=== PATIENT | male | born 1960 | race African-American/Black ===

== ENCOUNTER 2024-07-02 00:53 | Day surgery (SDC) | payer OTHER, SELFPAY ==
[2024-05-29 15:17] VITALS: BMI 40.8
--- NOTE | 2024-06-21 15:49 | PC.NURSE ---
Spoke with patient regarding medication Plavix & Eliquis. Patient verbalizes understanding that the last dose is to be taken on 06/24/24 for Plavix & 06/28/24 for Eliquis and the Endoscopist will instruct them when to restart after the procedure.
[2024-06-21 15:50] VITALS: BMI 40.8
--- OUTSIDE RECORDS SUMMARY | 2024-07-02 00:56 | XMS_ITS | Continuity of Care Document ---
Author Organization Formerly [facility] Address [address] [place] [address] [place] [address] Phone Care Team Providers Care Bag Turner Name Role Phone Hunter Vivar MD Unavailable Unavailable Procedures Procedure Date Eye Exam & Treatment Advance Directives Directive Yes / No Effective Date File Name No Information Encounters Encounter Description Practice Location Reason(s) For Visit Diagnoses Date Provider Providers Copied on Encounter [facility], [id number] [place] [address] [address], [place], [place], [id number], [place] tel:[phone] [facility] No Information [address]. [address] [facility] [address], [place], [place], [id number], [place]. tel:[phone] Family History Family Member Type Diagnosis Age At Onset No Information Payers Payer name Insurance type Covered libertarian ID Authoriza tion(s) No Information Social History Type Description Quantity Date Captured Comments Sex Male Smoking Status No Information Chief Complaint And Reason For Visit No Information Reason For Referral Reason For Referral No Information History Of Present Illness Encounter Date Complaint History Of Prese nt Illness No Information Functional Status Date Functional Assessmen t No Information Instructions Date Instruction Additional Infor mation No Information Assessments Type Assessment Date No Information Patient Care Teams Name Effective Dates (start - stop) Status Members No Information
--- OUTSIDE RECORDS SUMMARY | 2024-07-02 00:56 | XMS_ITS | Data Portability ---
Author Organization [facility] Yareli Betancur Address [address] [place] [address] Care Team Providers Care Drum Tester Name Role Phone SAIDA MCLAUGHLIN Primary Care Provider Unavailabl e Assessment Encounter Date Assessment Date Assessment LastModified by Organization Details LastModified Time 05/17/2023 05/17/2023 Old records continue current therapy blood work for biochemical management of disease processes and medications he will follow-up in 4-month [email or web address] Not available 05/17/2023 22:45:18 07/29/2023 07/29/2023 Diagnosis discussed in the management of those problems we are going to try to get him on a GLP-1 agent Ozempic hemoglobin A1c 8.3 LDL 95 significance of that discussed in I like to go up on medication but he wants to try diet I told him on he gets approved for Ozempic to call back for orders before starting because I will probably decrease his Toujeo dose when he starts the Ozempic Not available 08/10/2023 20:15:26 10/26/2023 10/26/2023 lifestyle instructions diabetic exam low-dose CT chest follow up in 4 months continue current therapy blood work ordered [email or web address] Not available 10/26/2023 23:19:20 03/06/2024 03/06/2024 healthy lifestyle care instructions blood work continue current therapy Prevnar 20 today diabetic foot exam diabetic eye exam six-month follow up [email or web address] Not available 03/06/2024 22:21:02 Plan of Treatment Reminders Order Date Submit Date Provider Last Modified By Organization Details Last Modified Time Details Appointments ANY 15 2024 10:00A M Saida Mclaughlin MD Not available Not available Not available Lab HbA1c (hemoglob in A1c), blood 2024 025 REINAHOOD Pozo, [address], [place], [address], 03/08/2024 13:15:03 albumin/c reatinine , mass ratio, urine 2024 025 REINA Pozo, [address], [address], [place], [address], 03/08/2024 13:14:58 CBC w/ auto diff 2024 025 REINA [facility], [address], [place], [address], 03/08/2024 13:15:04 lipid panel, serum 2024 025 REINA Pozo, [address], [address], [place], [address], 03/08/2024 13:15:00 CMP, serum or plasma 2024 025 REINA Pozo, [address], [place], [address], 03/08/2024 13:15:01 HbA1c (hemoglob in A1c), blood 2023 024 REINA Pozo, [address], [address], [place], [address], 10/27/2023 08:32:09 CBC w/ auto diff 2023 024 REINA Pozo, [address], [place], [address], 10/27/2023 08:32:10 CMP, serum or plasma 2023 024 REINA Pozo, [address], [place], [address], 10/27/2023 08:32:08 lipid panel, serum 2023 024 [place], [address], [place], [address], 10/27/2023 08:32:08 albumin/c reatinine , mass ratio, urine 2023 024 REINA [facility], [address], [place], [address], 05/18/2023 08:24:11 CMP, serum or plasma 2023 024 REINA [facility], [address], [place], [address], 05/18/2023 08:24:13 lipid panel, serum 2023 024 [place] [facility], [address], [place], [address], 05/18/2023 08:24:12 CBC w/ auto diff 2023 024 [facility], [address], [place], [address], 05/18/2023 08:24:15 T3, free, serum or plasma 2023 024 [place] Luis E, [address], [address], [place], [address], 05/18/2023 08:24:16 TSH, ultra-sen sitive, serum 2023 024 REINA [facility], [address], [place], [address], 05/18/2023 08:24:14 unlisted lab - T4, free 2023 024 REINA [facility], [address], [place], [address], 05/18/2023 08:24:13 Referral podiatris t referral 2024 025 [facility], [address], [place], [address], 06/14/2024 12:34:42 Procedures colonosco py screening (PROC) [address] [facility], [address], [id number], [place], [address], 04/11/2024 12:25:22 Surgeries None recorded. Imaging LDCT, chest, for lung cancer screening 2023 024 [facility] ([facility]), [address], [place], [address], 11/09/2023 17:07:25 Medication Orders Ozempic 0.25 mg or 0.5 mg (2 mg/3 mL) subcutane ous pen injector 2023 024 REINA [id number], [address], [place], [address], 09/26/2023 10:34:28 Ozempic 1 mg/dose (4 mg/3 mL) subcutane ous pen injector 2023 024 [email or web address] [id number], [address], [place], [address], 07/29/2023 14:01:42 Patient TargetsNo targets recorded. Patient Instructions Encounter Date Encounter Id Patient Instructions Last Modified By Organization Details Last Modified Time 10/26/2023 [id number] A healthy lifestyle: care instructions [email or web address] Not available 10/26/2023 23:19:36 diabetic eye exam* [email or web address] Not available 10/26/2023 17:03:53 labs today, we will call you when ldct approved thru insurance [email or web address] Not available 10/26/2023 15:48:22 03/06/2024 [id number] A healthy lifestyle: care instructions [email or web address] Not available 03/06/2024 17:25:07 diabetic eye exam* [email or web address] Not available 06/13/2024 12:23:49 high blood pressure: care instructions [email or web address] Not available 03/06/2024 22:21:27 Reason for Referral County Program Technician Referral for Type 2 diabetes mellitus Referring Physician: Saida Mclaughlin, Internal Medicine, Encounter Date: 03/06/2024 Results Created Date Observation Date Name Description Value Unit Range Abnormal Flag Note LastModifiedBy Organization Detail LastModifiedTime 05/17/19 24 05/18/2023 ALBUM IN/CR EATIN INE RATIO ,URIN E creatinine, urine 265.8 mg/dL notest ab. Not Available [facility] ([facility]) [address] [facility], [place], [address], 05/18/2023 08:24:11 05/17/19 24 05/18/2023 ALBUM IN/CR EATIN INE RATIO ,URIN E albumin, urine 11.5 ug/mL notest ab. Not Available [facility] ([facility]) [address] [place], [address], 05/18/2023 08:24:11 05/17/19 24 05/18/2023 ALBUM IN/CR EATIN INE RATIO ,URIN E alb/creat ratio 4 mg/g_ creat 0-29 Nicci l: 0 - 29 Moder ately incre ased: 30 - 300 Sever yasmin incre ased: >300 Not Available [facility] ([facility]) [address] [facility], [place], [address], 05/18/2023 08:24:11 05/17/19 24 05/18/2023 LIPID PANEL cholesterol, total 158 mg/dL 100-19 9 Not Available [facility] ([facility]) [address] [place], [address], 05/18/2023 08:24:12 05/17/19 24 05/18/2023 LIPID PANEL triglyceride s 77 mg/dL 0-149 Not Available [facility]) [address] [place], [address], 05/18/2023 08:24:12 05/17/19 24 05/18/2023 LIPID PANEL HDL cholesterol 48 mg/dL >39 Not Available [facility] [address] [place], [address], 05/18/2023 08:24:12 05/17/19 24 05/18/2023 LIPID PANEL VLDL cholesterol becka 15 mg/dL 5-40 Not Available [facility]) [address] [place], [address], 05/18/2023 08:24:12 05/17/19 24 05/18/2023 LIPID PANEL LDL chol calc ([facility]) 95 mg/dL 0-99 Not Available [facility] ([facility]) [address] [place], [address], 05/18/2023 08:24:12 05/17/19 24 05/18/2023 T4, FREE T4,free(dire ct) 1.23 NG/dL 0.82-1 .77 Not Available [facility] ([facility]) [address] [place], [address], 05/18/2023 08:24:13 05/17/19 24 05/18/2023 COMP. METAB OLIC PANEL (14) glucose 119 mg/dL 70-99 above high normal Not Available [facility] ([facility]) [address] [place], [address], 05/18/2023 08:24:13 05/17/19 24 05/18/2023 COMP. METAB OLIC PANEL (14) BUN 19 mg/dL 8-27 Not Available [facility] ([facility]) [address] [place], [address], 05/18/2023 08:24:13 05/17/19 24 05/18/2023 COMP. METAB OLIC PANEL (14) creatinine 0.93 mg/dL 0.76-1 .27 Not Available [facility] ([facility]) [address] [facility], [place], [address], 05/18/2023 08:24:13 05/17/19 24 05/18/2023 COMP. METAB OLIC PANEL (14) eGFR 94 mL/mi n/1.7 3 >59 Not Available [facility] ([facility]) [address] [facility], [place], [address], 05/18/2023 08:24:13 05/17/19 24 05/18/2023 COMP. METAB OLIC PANEL (14) BUN/creatini ne ratio 20 10-24 Not Available [facility] ([facility]) [address] [facility], [place], [address], 05/18/2023 08:24:13 05/17/19 24 05/18/2023 COMP. METAB OLIC PANEL (14) sodium 140 mmol/ L 134-14 4 Not Available [facility] ([facility]) [address] [place], [address], 05/18/2023 08:24:13 05/17/19 24 05/18/2023 COMP. METAB OLIC PANEL (14) potassium 4.7 mmol/ L 3.5-5. 2 Not Available [facility] ([facility]) [address] [place], [address], 05/18/2023 08:24:13 05/17/19 24 05/18/2023 COMP. METAB OLIC PANEL (14) chloride 103 mmol/ L 96-106 Not Available [facility] ([facility]) [address] [place], [address], 05/18/2023 08:24:13 05/17/19 24 05/18/2023 COMP. METAB OLIC PANEL (14) carbon dioxide, total 23 mmol/ L 20-29 Not Available [facility] ([facility]) [address], [place], [address], 05/18/2023 08:24:13 05/17/19 24 05/18/2023 COMP. METAB OLIC PANEL (14) calcium 9.2 mg/dL 8.6-10 .2 Not Available [facility] ([facility]) [address] [place], [address], 05/18/2023 08:24:13 05/17/19 24 05/18/2023 COMP. METAB OLIC PANEL (14) protein, total 7.3 g/dL 6.0-8. 5 Not Available [facility] ([facility]) [address] [place] [place], [address], 05/18/2023 08:24:13 05/17/19 24 05/18/2023 COMP. METAB OLIC PANEL (14) albumin 3.9 g/dL 3.8-4. 9 Not Available [facility] ([facility]) [address] [place], [address], 05/18/2023 08:24:13 05/17/19 24 05/18/2023 COMP. METAB OLIC PANEL (14) globulin, total 3.4 g/dL 1.5-4. 5 Not Available [facility] ([facility]) [address] [facility] [place], [address], 05/18/2023 08:24:13 05/17/19 24 05/18/2023 COMP. METAB OLIC PANEL (14) A/G ratio 1.1 1.2-2. 2 below low normal Not Available [facility] ([facility]) [address] [place], [address], 05/18/2023 08:24:13 05/17/19 24 05/18/2023 COMP. METAB OLIC PANEL (14) bilirubin, total 0.3 mg/dL 0.0-1. 2 Not Available [facility] ([facility]) [address] [facility], [place], [address], 05/18/2023 08:24:13 05/17/19 24 05/18/2023 COMP. METAB OLIC PANEL (14) alkaline phosphatase 74 IU/L 44-121 Not Available [facility]) [address] [facility], [place], [address], 05/18/2023 08:24:13 05/17/19 24 05/18/2023 COMP. METAB OLIC PANEL (14) AST (SGOT) 14 IU/L 0-40 Not Available [facility] ([facility]) [address] [facility], [place], [address], 05/18/2023 08:24:13 05/17/19 24 05/18/2023 COMP. METAB OLIC PANEL (14) ALT (SGPT) 18 IU/L 0-44 Not Available [facility] ([facility]) [address] [facility], [place], [address], 05/18/2023 08:24:13 05/17/19 24 05/18/2023 TSH TSH 1.220 uIU/m L 0.450- 4.500 Not Available [facility] ([facility]) [address] [facility], [place], [address], 05/18/2023 08:24:14 05/17/19 24 05/18/2023 CBC WITH DIFFE RENTI AL/PL ATELE T WBC 8.6 x10e3 /uL 3.4-10 .8 Not Available [facility] ([facility]) [address] [facility], [place], [address], 05/18/2023 08:24:15 05/17/19 24 05/18/2023 CBC WITH DIFFE RENTI AL/PL ATELE T RBC 4.24 x10e6 /uL 4.14-5 .80 Not Available [facility] ([facility]) [address] [facility], [place], [address], 05/18/2023 08:24:15 05/17/19 24 05/18/2023 CBC WITH DIFFE RENTI AL/PL ATELE T hemoglobin 11.8 g/dL 13.0-1 7.7 below low normal Not Available [facility] ([facility]) [address] [place], [address], 05/18/2023 08:24:15 05/17/19 24 05/18/2023 CBC WITH DIFFE RENTI AL/PL ATELE T hematocrit 36.3 % 37.5-5 1.0 below low normal Not Available [facility] ([facility]) [address] [place], [address], 05/18/2023 08:24:15 05/17/19 24 05/18/2023 CBC WITH DIFFE RENTI AL/PL ATELE T MCV 86 fL 79-97 Not Available [facility] ([facility]) [address] [place], [address], 05/18/2023 08:24:15 05/17/19 24 05/18/2023 CBC WITH DIFFE RENTI AL/PL ATELE T MCH 27.8 pg 26.6-3 3.0 Not Available [facility] ([facility]) [address] [place], [address], 05/18/2023 08:24:15 05/17/19 24 05/18/2023 CBC WITH DIFFE RENTI AL/PL ATELE T MCHC 32.5 g/dL 31.5-3 5.7 Not Available [facility] ([facility]) [address] [place], [address], 05/18/2023 08:24:15 05/17/19 24 05/18/2023 CBC WITH DIFFE RENTI AL/PL ATELE T RDW 14.0 % 11.6-1 5.4 Not Available [facility] ([facility]) [address] [place], [address], 05/18/2023 08:24:15 05/17/19 24 05/18/2023 CBC WITH DIFFE RENTI AL/PL ATELE T platelets 314 x10e3 /uL 150-45 0 Not Available [facility] ([facility]) [address] [facility], [place], [address], 05/18/2023 08:24:15 05/17/19 24 05/18/2023 CBC WITH DIFFE RENTI AL/PL ATELE T neutrophils 57 % notest ab. Not Available [facility] ([facility]) [address] [facility], [place], [address], 05/18/2023 08:24:15 05/17/19 24 05/18/2023 CBC WITH DIFFE RENTI AL/PL ATELE T lymphs 26 % notest ab. Not Available [facility] ([facility]) [address] [facility], [place], [address], 05/18/2023 08:24:15 05/17/19 24 05/18/2023 CBC WITH DIFFE RENTI AL/PL ATELE T monocytes 10 % notest ab. Not Available [facility] ([facility]) [address] [facility], [place], [address], 05/18/2023 08:24:15 05/17/19 24 05/18/2023 CBC WITH DIFFE RENTI AL/PL ATELE T eos 6 % notest ab. Not Available [facility] ([facility]) [address] [facility], [place], [address], 05/18/2023 08:24:15 05/17/19 24 05/18/2023 CBC WITH DIFFE RENTI AL/PL ATELE T basos 1 % notest ab. Not Available [facility] ([facility]) [address] [facility], [place], [address], 05/18/2023 08:24:15 05/17/19 24 05/18/2023 CBC WITH DIFFE RENTI AL/PL ATELE T neutrophils (absolute) 4.9 x10e3 /uL 1.4-7. 0 Not Available [facility] ([facility]) [address] [facility], [place], [address], 05/18/2023 08:24:15 05/17/19 24 05/18/2023 CBC WITH DIFFE RENTI AL/PL ATELE T lymphs (absolute) 2.3 x10e3 /uL 0.7-3. 1 Not Available [facility] ([facility]) [address] [place], [address], 05/18/2023 08:24:15 05/17/19 24 05/18/2023 CBC WITH DIFFE RENTI AL/PL ATELE T monocytes(ab solute) 0.9 x10e3 /uL 0.1-0. 9 Not Available [facility] ([facility]) [address] [facility], [place], [address], 05/18/2023 08:24:15 05/17/19 24 05/18/2023 CBC WITH DIFFE RENTI AL/PL ATELE T eos (absolute) 0.5 x10e3 /uL 0.0-0. 4 above high normal Not Available [facility] ([facility]) [address] [place], [address], 05/18/2023 08:24:15 05/17/19 24 05/18/2023 CBC WITH DIFFE RENTI AL/PL ATELE T baso (absolute) 0.1 x10e3 /uL 0.0-0. 2 Not Available [facility] ([facility]) [address] [place], [address], 05/18/2023 08:24:15 05/17/19 24 05/18/2023 CBC WITH DIFFE RENTI AL/PL ATELE T immature granulocytes 0 % notest ab. Not Available [facility] ([facility]) [address] [place], [address], 05/18/2023 08:24:15 05/17/19 24 05/18/2023 CBC WITH DIFFE NNAMDI AL/PL ATELE T immature grans (abs) 0.0 x10e3 /uL 0.0-0. 1 Not Available [facility] ([facility]) [address] [facility], [place], [address], 05/18/2023 08:24:15 05/17/19 24 05/18/2023 TRIIO DOTHY CAPRICE E (T3), FREE triiodothyro nine (T3), free 2.9 pg/mL 2.0-4. 4 Not Available [facility] ([facility]) [address] [facility], [place], [address], 05/18/2023 08:24:15 05/17/19 24 05/18/2023 VERBA L ORDER see below: Commen t: Hany alarconi de reque sted infor fer n and fax to [phone]. [place] s requi res a writt en and keyon d reque st be forwa rded to a labor atory follo wing a verba l order of a labor atory test. Hany blanco gumaro t us to meet this requi remen t and to compl ete our recor ds. Date: Diagn osis code( s) provi ded for this order : I10 E11.9 Addit ional Diagn osis Code( s):__ _ Hany blanco Print ICD-9 /10 Diagn osis Code( s):__ _ Physi renetta or Autho rized Desig nee:_ _ Pleas e Print Physi renetta or Autho rized Desig nee Signa ture: Your Signa ture Confi cecile Your Order Of The Test( s) Liste d Not Available [facility] ([facility]) [address] [place], [address], 05/18/2023 17:09:42 05/17/19 24 05/18/2023 VERBA L ORDER additional test(s) requested Commen t: Test( s) added per Mino Barrera at [facility] nt 05-17 Logge d by Stefanie Hong t Test# [id number] 3 Hemog lobin A1c Not Available [facility] ([facility]) [address] [facility], [place], [address], 05/18/2023 17:09:42 05/17/19 24 05/20/2023 JULIO EN AUTHO RIZAT ION written authorizatio n Veronique Friedman en Autho rizat ion Recei sasha. Autho rizat ion recei sasha from MINO BARRERA 05-19 Logge d by Gia seymour Not Available [facility] ([facility]) [address] [place], [address], 05/20/2023 06:17:36 05/17/19 24 05/19/2023 HEMOG LOBIN A1C hemoglobin A1C 8.3 % 4.8-5. 6 above high normal Predi abete s: 5.7 - 6.4 Diabe kayley: >6.4 Glyce tameka contr ol for adult s with diabe kayley: <7.0 Not Available [facility] ([facility]) [address] [facility] [place], [address], 05/20/2023 06:17:36 10/26/19 24 10/27/2023 LIPID PANEL cholesterol, total 121 mg/dL 100-19 9 Not Available [facility] ([facility]) [address] [facility] [place], [address], 10/27/2023 08:32:08 10/26/19 24 10/27/2023 LIPID PANEL triglyceride s 89 mg/dL 0-149 Not Available [facility] ([facility]) [address] [facility] [place], [address], 10/27/2023 08:32:08 10/26/19 24 10/27/2023 LIPID PANEL HDL cholesterol 37 mg/dL >39 below low normal Not Available [facility] ([facility]) [address] [place], [address], 10/27/2023 08:32:08 10/26/19 24 10/27/2023 LIPID PANEL VLDL cholesterol becka 17 mg/dL 5-40 Not Available [facility] ([facility]) [address] [place], [address], 10/27/2023 08:32:08 10/26/19 24 10/27/2023 LIPID PANEL LDL chol calc ([facility]) 67 mg/dL 0-99 Not Available [facility]) [address] [place], [address], 10/27/2023 08:32:08 10/26/19 24 10/27/2023 COMP. METAB OLIC PANEL (14) glucose 139 mg/dL 70-99 above high normal Not Available [facility] ([facility]) [address] [place], [address], 10/27/2023 08:32:08 10/26/19 24 10/27/2023 COMP. METAB OLIC PANEL (14) BUN 36 mg/dL 8-27 above high normal Not Available [facility] ([facility]) [address] [place], [address], 10/27/2023 08:32:08 10/26/19 24 10/27/2023 COMP. METAB OLIC PANEL (14) creatinine 1.70 mg/dL 0.76-1 .27 above high normal Not Available [facility] ([facility]) [address] [place], [address], 10/27/2023 08:32:08 10/26/19 24 10/27/2023 COMP. METAB OLIC PANEL (14) eGFR 46 mL/mi n/1.7 3 >59 below low normal Not Available [facility] ([facility]) [address], [place], [address], 10/27/2023 08:32:08 10/26/19 24 10/27/2023 COMP. METAB OLIC PANEL (14) BUN/creatini ne ratio 21 10-24 Not Available [facility] ([facility]) [address] [facility] [place], [address], 10/27/2023 08:32:08 10/26/19 24 10/27/2023 COMP. METAB OLIC PANEL (14) sodium 141 mmol/ L 134-14 4 Not Available [facility] ([facility]) [address] [place], [address], 10/27/2023 08:32:08 10/26/19 24 10/27/2023 COMP. METAB OLIC PANEL (14) potassium 4.7 mmol/ L 3.5-5. 2 Not Available [facility] ([facility]) [address] [facility] [place], [address], 10/27/2023 08:32:08 10/26/19 24 10/27/2023 COMP. METAB OLIC PANEL (14) chloride 103 mmol/ L 96-106 Not Available [facility] ([facility]) [address], [place], [address], 10/27/2023 08:32:08 10/26/19 24 10/27/2023 COMP. METAB OLIC PANEL (14) carbon dioxide, total 21 mmol/ L 20-29 Not Available [facility] ([facility]) [address], [place], [address], 10/27/2023 08:32:08 10/26/19 24 10/27/2023 COMP. METAB OLIC PANEL (14) calcium 9.2 mg/dL 8.6-10 .2 Not Available [facility] ([facility]) [address] [place], [address], 10/27/2023 08:32:08 10/26/19 24 10/27/2023 COMP. METAB OLIC PANEL (14) protein, total 7.2 g/dL 6.0-8. 5 Not Available [facility] ([facility]) [address], [place], [address], 10/27/2023 08:32:08 10/26/19 24 10/27/2023 COMP. METAB OLIC PANEL (14) albumin 4.1 g/dL 3.8-4. 9 Not Available [facility] ([facility]) [address], [place], [address], 10/27/2023 08:32:08 10/26/19 24 10/27/2023 COMP. METAB OLIC PANEL (14) globulin, total 3.1 g/dL 1.5-4. 5 Not Available [facility] ([facility]) [address] [place], [address], 10/27/2023 08:32:08 10/26/19 24 10/27/2023 COMP. METAB OLIC PANEL (14) bilirubin, total 0.3 mg/dL 0.0-1. 2 Not Available [facility] ([facility]) [address] [place], [address], 10/27/2023 08:32:08 10/26/19 24 10/27/2023 COMP. METAB OLIC PANEL (14) alkaline phosphatase 65 IU/L 44-121 Not Available [facility]) [address], [place], [address], 10/27/2023 08:32:08 10/26/19 24 10/27/2023 COMP. METAB OLIC PANEL (14) AST (SGOT) 16 IU/L 0-40 Not Available [facility] ([facility]) [address] [place], [address], 10/27/2023 08:32:08 10/26/19 24 10/27/2023 COMP. METAB OLIC PANEL (14) ALT (SGPT) 19 IU/L 0-44 Not Available [facility] ([facility]) [address] [facility], [place], [address], 10/27/2023 08:32:08 10/26/19 24 10/27/2023 HEMOG LOBIN A1C hemoglobin A1C 8.2 % 4.8-5. 6 above high normal Predi abete s: 5.7 - 6.4 Diabe kayley: >6.4 Glyce tameka contr ol for adult s with diabe kayley: <7.0 Not Available [facility] ([facility]) [address] [facility], [place], [address], 10/27/2023 08:32:09 10/26/19 24 10/27/2023 CBC WITH DIFFE RENTI AL/PL ATELE T WBC 8.5 x10e3 /uL 3.4-10 .8 Not Available [facility] ([facility]) [address] [facility], [place], [address], 10/27/2023 08:32:10 10/26/19 24 10/27/2023 CBC WITH DIFFE RENTI AL/PL ATELE T RBC 3.78 x10e6 /uL 4.14-5 .80 below low normal Not Available [facility] ([facility]) [address] [facility], [place], [address], 10/27/2023 08:32:10 10/26/19 24 10/27/2023 CBC WITH DIFFE RENTI AL/PL ATELE T hemoglobin 11.0 g/dL 13.0-1 7.7 below low normal Not Available [facility] ([facility]) [address] [facility], [place], [address], 10/27/2023 08:32:10 10/26/19 24 10/27/2023 CBC WITH DIFFE RENTI AL/PL ATELE T hematocrit 34.3 % 37.5-5 1.0 below low normal Not Available [facility] ([facility]) [address] [facility], [place], [address], 10/27/2023 08:32:10 10/26/19 24 10/27/2023 CBC WITH DIFFE RENTI AL/PL ATELE T MCV 91 fL 79-97 Not Available [facility] ([facility]) [address] [place], [address], 10/27/2023 08:32:10 10/26/19 24 10/27/2023 CBC WITH DIFFE RENTI AL/PL ATELE T MCH 29.1 pg 26.6-3 3.0 Not Available [facility] ([facility]) [address] [place], [address], 10/27/2023 08:32:10 10/26/19 24 10/27/2023 CBC WITH DIFFE RENTI AL/PL ATELE T MCHC 32.1 g/dL 31.5-3 5.7 Not Available [facility] ([facility]) [address] [facility], [place], [address], 10/27/2023 08:32:10 10/26/19 24 10/27/2023 CBC WITH DIFFE RENTI AL/PL ATELE T RDW 14.2 % 11.6-1 5.4 Not Available [facility] ([facility]) [address] [facility], [place], [address], 10/27/2023 08:32:10 10/26/19 24 10/27/2023 CBC WITH DIFFE RENTI AL/PL ATELE T platelets 316 x10e3 /uL 150-45 0 Not Available [facility] ([facility]) [address] [facility], [place], [address], 10/27/2023 08:32:10 10/26/19 24 10/27/2023 CBC WITH DIFFE RENTI AL/PL ATELE T neutrophils 51 % notest ab. Not Available [facility] ([facility]) [address] [facility] [facility], [place], [address], 10/27/2023 08:32:10 10/26/19 24 10/27/2023 CBC WITH DIFFE RENTI AL/PL ATELE T lymphs 32 % notest ab. Not Available [facility] ([facility]) [address] [facility], [place], [address], 10/27/2023 08:32:10 10/26/19 24 10/27/2023 CBC WITH DIFFE RENTI AL/PL ATELE T monocytes 12 % notest ab. Not Available [facility] ([facility]) [address] [facility], [place], [address], 10/27/2023 08:32:10 10/26/19 24 10/27/2023 CBC WITH DIFFE RENTI AL/PL ATELE T eos 4 % notest ab. Not Available [facility] ([facility]) [address] [facility], [place], [address], 10/27/2023 08:32:10 10/26/19 24 10/27/2023 CBC WITH DIFFE RENTI AL/PL ATELE T basos 1 % notest ab. Not Available [facility] ([facility]) [address] [facility] [facility], [place], [address], 10/27/2023 08:32:10 10/26/19 24 10/27/2023 CBC WITH DIFFE RENTI AL/PL ATELE T neutrophils (absolute) 4.4 x10e3 /uL 1.4-7. 0 Not Available [facility] ([facility]) [address] [facility], [place], [address], 10/27/2023 08:32:10 10/26/19 24 10/27/2023 CBC WITH DIFFE RENTI AL/PL ATELE T lymphs (absolute) 2.7 x10e3 /uL 0.7-3. 1 Not Available [facility] ([facility]) [address] [facility], [place], [address], 10/27/2023 08:32:10 10/26/19 24 10/27/2023 CBC WITH DIFFE RENTI AL/PL ATELE T monocytes(ab solute) 1.0 x10e3 /uL 0.1-0. 9 above high normal Not Available [facility] ([facility]) [address] [facility], [place], [address], 10/27/2023 08:32:10 10/26/19 24 10/27/2023 CBC WITH DIFFE RENTI AL/PL ATELE T eos (absolute) 0.3 x10e3 /uL 0.0-0. 4 Not Available [facility] ([facility]) [address] [facility], [place], [address], 10/27/2023 08:32:10 10/26/19 24 10/27/2023 CBC WITH DIFFE RENTI AL/PL ATELE T baso (absolute) 0.0 x10e3 /uL 0.0-0. 2 Not Available [facility] ([facility]) [address] [facility], [place], [address], 10/27/2023 08:32:10 10/26/19 24 10/27/2023 CBC WITH DIFFE RENTI AL/PL ATELE T immature granulocytes 0 % notest ab. Not Available [facility] ([facility]) [address] [facility] [facility], [place], [address], 10/27/2023 08:32:10 10/26/19 24 10/27/2023 CBC WITH DIFFE RENTI AL/PL ATELE T immature grans (abs) 0.0 x10e3 /uL 0.0-0. 1 Not Available [facility] ([facility]) [address] [facility] [facility], [place], [address], 10/27/2023 08:32:10 03/07/19 25 03/08/2024 ALBUM IN/CR EATIN INE RATIO ,URIN E creatinine, urine 290.2 mg/dL notest ab. Not Available [facility] ([facility]) [address] [facility] [facility], [place], [address], 03/08/2024 13:14:58 03/07/19 25 03/08/2024 ALBUM IN/CR EATIN INE RATIO ,URIN E albumin, urine 15.7 ug/mL notest ab. Not Available [facility] ([facility]) [address] [facility] [facility], [place], [address], 03/08/2024 13:14:58 03/07/19 25 03/08/2024 ALBUM IN/CR EATIN INE RATIO ,URIN E alb/creat ratio 5 mg/g_ creat 0-29 Nicci l: 0 - 29 Moder ately incre ased: 30 - 300 Sever yasmin incre ased: >300 Not Available [facility] ([facility]) [address] [facility] [facility], [place], [address], 03/08/2024 13:14:58 03/07/19 25 03/08/2024 LIPID PANEL cholesterol, total 131 mg/dL 100-19 9 Not Available [facility] ([facility]) [address] [facility], [place], [address], 03/08/2024 13:15:00 03/07/19 25 03/08/2024 LIPID PANEL triglyceride s 95 mg/dL 0-149 Not Available [facility] ([facility]) [address] [facility] [place], [address], 03/08/2024 13:15:00 03/07/19 25 03/08/2024 LIPID PANEL HDL cholesterol 40 mg/dL >39 Not Available [facility] ([facility]) [address] [facility] [place], [address], 03/08/2024 13:15:00 03/07/19 25 03/08/2024 LIPID PANEL VLDL cholesterol becka 18 mg/dL 5-40 Not Available [facility] ([facility]) [address] [facility] [place], [address], 03/08/2024 13:15:00 03/07/19 25 03/08/2024 LIPID PANEL LDL chol calc ([facility]) 73 mg/dL 0-99 Not Available [facility] ([facility]) [address] [place], [address], 03/08/2024 13:15:00 03/07/19 25 03/08/2024 COMP. METAB OLIC PANEL (14) glucose 119 mg/dL 70-99 above high normal Not Available [facility] ([facility]) [address] [place], [address], 03/08/2024 13:15:01 03/07/19 25 03/08/2024 COMP. METAB OLIC PANEL (14) BUN 30 mg/dL 8-27 above high normal Not Available [facility] ([facility]) [address] [facility] [place], [address], 03/08/2024 13:15:01 03/07/19 25 03/08/2024 COMP. METAB OLIC PANEL (14) creatinine 1.12 mg/dL 0.76-1 .27 Not Available [facility] ([facility]) [address] [place], [address], 03/08/2024 13:15:01 03/07/19 25 03/08/2024 COMP. METAB OLIC PANEL (14) eGFR 75 mL/mi n/1.7 3 >59 Not Available [facility] ([facility]) [address] [facility] [facility], [place], [address], 03/08/2024 13:15:01 03/07/19 25 03/08/2024 COMP. METAB OLIC PANEL (14) BUN/creatini ne ratio 27 10-24 above high normal Not Available [facility] ([facility]) [address] [facility], [place], [address], 03/08/2024 13:15:01 03/07/19 25 03/08/2024 COMP. METAB OLIC PANEL (14) sodium 140 mmol/ L 134-14 4 Not Available [facility] ([facility]) [address] [facility] [facility], [place], [address], 03/08/2024 13:15:01 03/07/19 25 03/08/2024 COMP. METAB OLIC PANEL (14) potassium 4.8 mmol/ L 3.5-5. 2 Not Available [facility] ([facility]) [address] [facility] [facility], [place], [address], 03/08/2024 13:15:01 03/07/19 25 03/08/2024 COMP. METAB OLIC PANEL (14) chloride 104 mmol/ L 96-106 Not Available [facility] ([facility]) [address] [place], [address], 03/08/2024 13:15:01 03/07/19 25 03/08/2024 COMP. METAB OLIC PANEL (14) carbon dioxide, total 23 mmol/ L 20-29 Not Available [facility] ([facility]) [address] [facility], [place], [address], 03/08/2024 13:15:01 03/07/19 25 03/08/2024 COMP. METAB OLIC PANEL (14) calcium 8.8 mg/dL 8.6-10 .2 Not Available [facility] ([facility]) [address] [place], [address], 03/08/2024 13:15:01 03/07/19 25 03/08/2024 COMP. METAB OLIC PANEL (14) protein, total 7.3 g/dL 6.0-8. 5 Not Available [facility] ([facility]) [address] [place], [address], 03/08/2024 13:15:01 03/07/19 25 03/08/2024 COMP. METAB OLIC PANEL (14) albumin 4.1 g/dL 3.9-4. 9 Not Available [facility] ([facility]) [address] [facility] [place], [address], 03/08/2024 13:15:01 03/07/19 25 03/08/2024 COMP. METAB OLIC PANEL (14) globulin, total 3.2 g/dL 1.5-4. 5 Not Available [facility] ([facility]) [address] [place], [address], 03/08/2024 13:15:01 03/07/19 25 03/08/2024 COMP. METAB OLIC PANEL (14) bilirubin, total 0.2 mg/dL 0.0-1. 2 Not Available [facility] ([facility]) [address] [place], [address], 03/08/2024 13:15:01 03/07/19 25 03/08/2024 COMP. METAB OLIC PANEL (14) alkaline phosphatase 70 IU/L 44-121 Not Available [facility] ([facility]) [address] [place], [address], 03/08/2024 13:15:01 03/07/19 25 03/08/2024 COMP. METAB OLIC PANEL (14) AST (SGOT) 15 IU/L 0-40 Not Available [facility] ([facility]) [address] [place], [address], 03/08/2024 13:15:01 03/07/1903/08/2024 COMP. METAB OLIC PANEL (14) ALT (SGPT) 20 IU/L 0-44 Not Available [facility] ([facility]) [address] [facility] [facility], [place], [address], 03/08/2024 13:15:01 03/07/19 25 03/08/2024 HEMOG LOBIN A1C hemoglobin A1C 6.9 % 4.8-5. 6 above high normal Predi abete s: 5.7 - 6.4 Diabe kayley: >6.4 Glyce tameka contr ol for adult s with diabe kayley: <7.0 Not Available [facility] ([facility]) [address] [place], [address], 03/08/2024 13:15:03 03/07/19 25 03/08/2024 CBC WITH DIFFE RENTI AL/PL ATELE T WBC 7.7 x10e3 /uL 3.4-10 .8 Not Available [facility] ([facility]) [address] [place], [address], 03/08/2024 13:15:04 03/07/19 25 03/08/2024 CBC WITH DIFFE RENTI AL/PL ATELE T RBC 3.81 x10e6 /uL 4.14-5 .80 below low normal Not Available [facility] ([facility]) [address] [place], [address], 03/08/2024 13:15:04 03/07/19 25 03/08/2024 CBC WITH DIFFE RENTI AL/PL ATELE T hemoglobin 11.0 g/dL 13.0-1 7.7 below low normal Not Available [facility] ([facility]) [address] [place], [address], 03/08/2024 13:15:04 03/07/19 25 03/08/2024 CBC WITH DIFFE RENTI AL/PL ATELE T hematocrit 33.9 % 37.5-5 1.0 below low normal Not Available [facility] ([facility]) [address] [facility], [place], [address], 03/08/2024 13:15:04 03/07/19 25 03/08/2024 CBC WITH DIFFE RENTI AL/PL ATELE T MCV 89 fL 79-97 Not Available [facility] ([facility]) [address] [facility], [place], [address], 03/08/2024 13:15:04 03/07/19 25 03/08/2024 CBC WITH DIFFE RENTI AL/PL ATELE T MCH 28.9 pg 26.6-3 3.0 Not Available [facility] ([facility]) [address] [facility], [place], [address], 03/08/2024 13:15:04 03/07/19 25 03/08/2024 CBC WITH DIFFE RENTI AL/PL ATELE T MCHC 32.4 g/dL 31.5-3 5.7 Not Available [facility] ([facility]) [address] [facility], [place], [address], 03/08/2024 13:15:04 03/07/19 25 03/08/2024 CBC WITH DIFFE RENTI AL/PL ATELE T RDW 13.1 % 11.6-1 5.4 Not Available [facility] ([facility]) [address] [facility], [place], [address], 03/08/2024 13:15:04 03/07/19 25 03/08/2024 CBC WITH DIFFE RENTI AL/PL ATELE T platelets 330 x10e3 /uL 150-45 0 Not Available [facility] ([facility]) [address] [facility], [place], [address], 03/08/2024 13:15:04 03/07/19 25 03/08/2024 CBC WITH DIFFE RENTI AL/PL ATELE T neutrophils 47 % notest ab. Not Available [facility] ([facility]) [address] [facility], [place], [address], 03/08/2024 13:15:04 03/07/19 25 03/08/2024 CBC WITH DIFFE RENTI AL/PL ATELE T lymphs 34 % notest ab. Not Available [facility] ([facility]) [address] [facility], [place], [address], 03/08/2024 13:15:04 03/07/19 25 03/08/2024 CBC WITH DIFFE RENTI AL/PL ATELE T monocytes 12 % notest ab. Not Available [facility] ([facility]) [address] [facility], [place], [address], 03/08/2024 13:15:04 03/07/19 25 03/08/2024 CBC WITH DIFFE RENTI AL/PL ATELE T eos 6 % notest ab. Not Available [facility] ([facility]) [address] [facility], [place], [address], 03/08/2024 13:15:04 03/07/19 25 03/08/2024 CBC WITH DIFFE RENTI AL/PL ATELE T basos 1 % notest ab. Not Available [facility] ([facility]) [address] [facility], [place], [address], 03/08/2024 13:15:04 03/07/19 25 03/08/2024 CBC WITH DIFFE RENTI AL/PL ATELE T neutrophils (absolute) 3.7 x10e3 /uL 1.4-7. 0 Not Available [facility] ([facility]) [address] [facility], [place], [address], 03/08/2024 13:15:04 03/07/19 25 03/08/2024 CBC WITH DIFFE RENTI AL/PL ATELE T lymphs (absolute) 2.6 x10e3 /uL 0.7-3. 1 Not Available [facility] ([facility]) [address] [facility], [place], [address], 03/08/2024 13:15:04 03/07/19 25 03/08/2024 CBC WITH DIFFE RENTI AL/PL ATELE T monocytes(ab solute) 0.9 x10e3 /uL 0.1-0. 9 Not Available [facility] ([facility]) [address] [facility], [place], [address], 03/08/2024 13:15:04 03/07/19 25 03/08/2024 CBC WITH DIFFE RENTI AL/PL ATELE T eos (absolute) 0.4 x10e3 /uL 0.0-0. 4 Not Available [facility] ([facility]) [address] [facility], [place], [address], 03/08/2024 13:15:04 03/07/19 25 03/08/2024 CBC WITH DIFFE RENTI AL/PL ATELE T baso (absolute) 0.0 x10e3 /uL 0.0-0. 2 Not Available [facility] ([facility]) [address] [facility], [place], [address], 03/08/2024 13:15:04 03/07/19 25 03/08/2024 CBC WITH DIFFE RENTI AL/PL ATELE T immature granulocytes 0 % notest ab. Not Available [facility] ([facility]) [address] [facility], [place], [address], 03/08/2024 13:15:04 03/07/19 25 03/08/2024 CBC WITH DIFFE RENTI AL/PL ATELE T immature grans (abs) 0.0 x10e3 /uL 0.0-0. 1 Not Available [facility] ([facility]) [address] [place], [address], 03/08/2024 13:15:04 03/13/19 25 03/14/2024 VITAM IN B12 AND FOLAT E vitamin B12 420 pg/mL 232-12 45 Not Available [facility] ([facility]) [address] [facility], [place], [address], 03/14/2024 08:24:38 03/13/19 25 03/14/2024 VITAM IN B12 AND FOLAT E folate (folic acid), serum 7.8 NG/mL >3.0 A serum folat e ernestina ntrat ion of less than 3.1 ng/mL is consi dered to repre sent clini becka defic iency . Not Available [facility] ([facility]) [address] [facility], [place], [address], 03/14/2024 08:24:38 03/13/19 25 03/14/2024 IRON AND TIBC iron bind.cap.(TI BC) 285 ug/dL 250-45 0 Not Available [facility] ([facility]) [address] [facility], [place], [address], 03/14/2024 08:24:40 03/13/19 25 03/14/2024 IRON AND TIBC UIBC 256 ug/dL 111-34 3 Not Available [facility] ([facility]) [address] [facility], [place], [address], 03/14/2024 08:24:40 03/13/19 25 03/14/2024 IRON AND TIBC iron 29 ug/dL 38-169 below low normal Not Available [facility] ([facility]) [address] [place], [address], 03/14/2024 08:24:40 03/13/19 25 03/14/2024 IRON AND TIBC iron saturation 10 % 15-55 below low normal Not Available [facility] ([facility]) [address] [place], [address], 03/14/2024 08:24:40 03/13/19 25 03/14/2024 BECK TIN ferritin 42 NG/mL 30-400 Not Available [facility] ([facility]) [address] [facility], [place], [address], 03/14/2024 08:24:41 03/19/19 25 03/20/2024 COLOF IT,OC CULT BLOOD ,FECA L,IA occult blood, fecal, ia NEGATI VE negati ve Not Available [facility] ([facility]) [address] [facility], [place], [address], 03/20/2024 15:10:51 10/05/19 24 10/05/2023 US, echoc ardio gram No observ ation record ed. [facility] [address] [facility] [address], [place], [address], 10/10/2023 17:26:29 10/05/19 24 10/05/2023 US, doppl er, arter ial No observ ation record ed. [facility] [address] [facility] [address], [place], [address], 10/10/2023 17:29:38 11/09/19 24 11/09/2023 LDCT, chest , for lung cance r scree harjeet No observ ation record ed. [facility] [address] [place], [address], 11/17/2023 12:15:53 Result Notes None recorded. Problems Name Problem SNOMED Code Status Onset Date Resolution Date Notes Provider Name and Address Organization Details Recorded Time Essential hypertension 69726348 Active 2023 NORRIS Cr, [place] - [facility] 4 16:20:36 Type 2 diabetes mellitus 88171468 Active 2023 Angel Barrera MA null, [place] - [facility] 4 16:20:37 Hyperlipidemia 75204167 Active 2023 Saida Mclaughlin MD Attn: Kevin fisher,[address] [facility], [place], [address], [place] - [facility] 4 22:42:46 History of deep vein thrombosis 628864888 Active 2023 Saida Mclaughlin MD Attn: Kevin fisher,[address] [facility], [place], [address], [place] [facility] 4 22:42:47 Obesity 077331802 Active 2023 Saida Mclaughlin MD Attn: Kevin fisher,[address] [facility], [place], [address], [place] [facility] 4 22:42:48 Coronary atherosclerosi s 951120312 Active 2023 Saida Mclaughlin MD Attn: Kevin fisher,[address] [facility], [place], [address], [place] - [facility] 22:42:56 Problem Notes None recorded. Procedures Surgical History None recorded. Imaging Results Imaging Date Name Status LastModified by Organization Details LastModified Time 10/05/2023 US, echocardiogram completed [facility] [address] [address], [place], [address], 10/10/2023 17:26:29 10/05/2023 US, doppler, arterial completed [facility] [address] [facility] [address], [place], [address], 10/10/2023 17:29:38 11/09/2023 LDCT, chest, for lung cancer screening completed [facility] [address] [place], [address], 11/17/2023 12:15:53 Procedure Notes None recorded. Medical Equipment None Reported. Allergies No known drug allergies Medications Name Sig Start Date Stop Date Status Note LastModified by Organization Details LastModified Time BD Ultra Fine Pen [place] Mini 5 mm X 31 gauge USE TO INJECT INSULIN EVERY DAY 2023 active Not Available Not Available Not Avai lable atorvasta tin 80 mg tablet TAKE 1 TABLET BY MOUTH EVERY DAY active Not Available Not Available No t Available lisinopri l 20 mg tablet TAKE 1 TABLET BY MOUTH TWICE A DAY 10/25 completed Now he takes 40mg instead of 20mg Not Available Not Available Not Available clopidogr el 75 mg tablet TAKE 1 TABLET BY MOUTH EVERY DAY active Not Available Not Available No t Available amlodipin e 5 mg tablet TAKE 1 TABLET BY MOUTH EVERY DAY 10/25 completed Stopped by his Heart speciali st Not Available Not Available Not Available metformin 1,000 mg tablet TAKE 1 TABLET BY MOUTH TWICE A DAY 2024 active Not Available Not Available Not Avai lable hydrochlo rothiazid e 25 mg tablet TAKE 1 TABLET BY MOUTH EVERY DAY active Not Available Not Available No t Available metoprolo l succinate ER 25 mg tablet,ex tended release 24 hr TAKE 1 TABLET BY MOUTH EVERY DAY active Not Available Not Available No t Available lisinopri l 40 mg tablet TAKE 1 TABLET BY MOUTH EVERY DAY 2024 active Not Available Not Available Not Avai lable Novolog FlexPen U-100 Insulin aspart 100 unit/mL (3 mL) subcutane ous INJECT 40 UNITS UNDER THE SKIN TWICE A DAY 2024 active Not Available Not Available Not Avai lable BD Ultra-Fin e Mini Pen Needle 31 gauge x 05/06 USE TO INJECT INSULIN 3 TIMES DAILY active Not Available Not Available No t Available OneTouch Verio test strips USE TO TEST SUGARS TWICE DAILY 2023 active Not Available Not Available Not Avai lable Eliquis 5 mg tablet TAKE 1 TABLET BY MOUTH TWICE A DAY active Not Available Not Available No t Available Jardiance 10 mg tablet TAKE 1 TABLET BY MOUTH EVERY DAY active Not Available Not Available No t Available Toujeo SoloStar U-300 Insulin 300 unit/mL (1.5 mL) subcutane ous pen INJECT 30 UNITS UNDER THE SKIN ONCE DAILY 2024 active Not Available Not Available Not Avai lable Fiasp FlexTouch U-100 Insulin 100 unit/mL (3 mL) subcutane ous pen INJECT 40 UNITS INTO THE SKIN TWICE A DAY active Not Available Not Available No t Available OneTouch Delica Plus Lancet 30 gauge USE TO TEST TWICE DAILY active Not Available Not Available No t Available Ozempic 1 mg/dose (4 mg/3 mL) subcutane ous pen injector INJECT 1MG UNDER THE SKIN ONCE WEEKLY X4 WEEKS THEN CHANGE TO 2MG PEN active Not Available Not Available No t Available Ozempic 2 mg/dose (8 mg/3 mL) subcutane ous pen injector INJECT 2 MG UNDER THE SKIN ONCE EVERY 7 DAYS 2024 active Not Available Not Available Not Avai lable Ozempic 0.25 mg or 0.5 mg (2 mg/3 mL) subcutane ous pen injector INJECT 0.25 MG SUBCUTAN EOUSLY ONCE WEEKLY FOR 4 WKS THEN GO TO 0.5 MG ONCE WEEKLY FOR 4WKS. 09/25 completed pt already finished this dosage Not Available Not Available Not Available Vitals Date Recorded Body height Body mass index (BMI) Body weight Oxygen saturation Oxygen saturation in Arterial blood by Pulse oximetry Heart rate Systolic blood pressure Diastolic blood pressure Provider Name and Address Organization Details Last Updated DateTime 4 194.31 cm 40.6 kg/m2 808540. 22 g 95 % 95 % 72 /min 107 mm[Hg] 72 mm[Hg] Unruly Clark [place] - [facility] 4 15:45:45 Date Recorded Body height Body mass index (BMI) Body weight Heart rate Oxygen saturation Oxygen saturation in Arterial blood by Pulse oximetry Systolic blood pressure Diastolic blood pressure Provider Name and Address Organization Details Last Updated DateTime 4 194.31 cm 41 kg/m2 905160. 15 g 89 /min 92 % 92 % 130 mm[Hg] 76 mm[Hg] Eve Gray MA [place] - [facility] 4 11:28:58 Date Recorded Body height Body mass index (BMI) Body weight Heart rate Oxygen saturation Oxygen saturation in Arterial blood by Pulse oximetry Systolic blood pressure Diastolic blood pressure Provider Name and Address Organization Details Last Updated DateTime 4 194.31 cm 38.8 kg/m2 040775. 9 g 103 /min 97 % 97 % 124 mm[Hg] 62 mm[Hg] Tere Gonzalez [place] - [facility] 4 14:55:09 Date Recorded Body height Body mass index (BMI) Body weight Heart rate Oxygen saturation Oxygen saturation in Arterial blood by Pulse oximetry Systolic blood pressure Diastolic blood pressure Provider Name and Address Organization Details Last Updated DateTime 5 194.31 cm 39 kg/m2 616571. 01 g 89 /min 99 % 99 % 128 mm[Hg] 70 mm[Hg] Tere Gonzalez [place] - [facility] 16:40:06 Social History Question Answer Notes LastModified by Organizat ion Details LastModified Time Tobacco Smoking Status Never Smoker Unruly Clark MA null, [place] - [facility] 05/17/2023 15:39:32 Do You Have An Advance Directive? No Information n ot available 05/17/2023 Are You Blind Or Do You Have Difficulty Seeing? No Information n ot available 05/17/2023 What Is Your Level Of Caffeine Consumption? None Information not available 05/17/2023 In The 14 Days Before Symptom Onset, Have You Had Close Contact With A Laboratory-confirm ed COVID-19 While That Case Was Ill? No Information n ot available 10/26/2023 In The 14 Days Before Symptom Onset, Have You Had Close Contact With A Person Who Is Under Investigation For COVID-19 While That Person Was Ill? No Information not available 10/26/2023 Have You Been To An Area Known To Be High Risk For COVID-19? No Information not available 10/26/2023 Are You Deaf Or Do You Have Serious Difficulty Hearing? No Information not available 05/17/2023 What Type Of Diet Are You Following? REGULAR Information n ot available 05/17/2023 Are There Any Guns Present In Your Home? No Information not available 10/26/2023 What Was The Date Of Your Most Recent Tobacco Screening? 03/06/2024 Information not available 03/06/2024 What Is Your Relationship Status? Single Information not available 05/17/2023 Do You Use Your Seat Belt Or Car Seat Routinely? Yes Information not available 05/17/2023 Do You Have Smoke And Carbon Monoxide Detectors In Your Home? Yes Information not available 05/17/2023 Do You Use Sunscreen Routinely? No Information not available 10/26/2023 Has Tobacco Cessation Counseling Been Provided? No Information not available 10/26/2023 Sex: Male Functional Status Question Answer Note LastModified by Organizat ion Details LastModified Time Do you use any illicit or recreational drugs? No Information not available 05/17/2023 Do you or have you ever used any other forms of tobacco or nicotine? No Information not available 05/17/2023 What is your level of alcohol consumption? None Information not available 05/17/2023 Are you currently employed? No Information not available 10/26/2023 Are you able to care for yourself? Yes Information n ot available 05/17/2023 What is your exercise level? Occasional Information not available 05/17/2023 Mental Status Question Answer Note LastModified by Organization D etails LastModified Time Do you feel stressed (tense, restless, nervous, or anxious, or unable to sleep at night)? [id number] Information not available 05/17/2023 Family History Relationship Description Onset Age of this Age Resolved Age Notes LastModified by Organization Details LastModified Time Mother Hypertensive disorder bandersonma Not available 04/22 15:38:28 Mother Myocardial infarction bandersonma Not available 15:38:40 Mother Cerebrovascu lar accident bandersonma Not available 0 05/17/2023 15:39:11 Notes:No new family history, me/rma Medical History Condition Response Coronary Artery Disease N Other N Atrial Fibrillation N High Blood Pressure Y Depression N COPD N Blood Clots N Anxiety Disorder N Muscle, Joint, or Bone Problems N Acid Reflux (GERD) N Cancer N Stroke N High Cholesterol Y Liver Disease N Headaches N Kidney or Bladder Problems N Thyroid Problems N GI Problems N Skin Problems N Anemia N Heart Attack (NM) N Diabetes Y Seizures/Epilepsy N Asthma N Allergies N Hepatitis N Heart Failure N Osteoporosis N Immunizations Vaccine Type Date Status Note Provider Nam e and Address Organization Details Recorded Time Pneumococcal conjugate PCV20, polysaccharide FMI383 conjugate, adjuvant, PF 5 completed Saida Mclaughlin MD Attn: [address] [place], [address], [facility] 03/06/2024 22:18:23 Past Encounters Encounter ID Performer Location Encounter Start Date Encounter Closed Date Diagnosis/Indication Diagnosis SNOMED-CT Code Diagnosis ICD10 Code Diagnosis Note [id number] Saida Mclaughlin MD [facility] (Adult Med) [address] [place] [address] [phone] 05/17/2023 15:18:18 05/17/2023 16:18:22 Essential hypertension 76277315 I10 Type 2 lillian betes mellitus 00544415 E11.9 Hyperlipidemia 52061188 E78.5 History of deep vein thrombosis 332568216 Z86.718 Obesity 881466331 E66.9 Coronary atherosclerosis 219820160 I25.10 [id number] Saida Mclaughlin MD [facility] (Adult Med) [address] [place] [address] [phone] 07/29/2023 11:20:46 07/29/2023 12:36:44 Type 2 diabetes mellitus 20115050 E11.9 Coronary atherosclerosis 174160851 I25.10 Essential hypertension 37119480 I10 History of deep vein thrombosis 128061383 Z86.718 Hyperlipidemia 03836067 E78.5 Obesity 422112065 E66.9 [id number] MD Jose Billy (Adult Med) [address] [place] [address] [id number] 10/26/2023 14:44:17 10/26/2023 16:07:04 Obesity 737039226 E66.8 Type 2 lillian betes mellitus 29672224 E11.9 History of nicotine dependence 5108742305 40386628 Z87.891 personal hx 1ppd x20 yrs Essential hypertension 63446279 I10 Hyperlipidemia 43467951 E78.5 Coronary atherosclerosis 034865114 I25.10 History of deep vein thrombosis 655990000 Z86.695 [id number] MD Jose Billy (Adult Med) [address] [place] [address] [phone] 03/06/2024 15:57:09 03/06/2024 17:33:27 Body mass index 30+ - obesity 816730207 Z68.39 Obesity 780296677 E66.9 Essential hypertension 86781683 I10 Type 2 lillian betes mellitus 98589381 E11.9 Screening for malignant neoplasm of colon 452468635 Z12.11 Administra tion of pneumococcal vaccine 46292538 Z23 Coronary atherosclerosis 953232345 I25.10 Hyperlipidemia 38756635 E78.5 Health Concerns Section Related Observation LastModified by Organization Detai ls LastModified Time None Recorded Concern Status LastModified by Organization Details LastModified Time None Recorded Advance Directives Directive N: Payers Encounter Date Sequence Insurance Name Policy Number Policy Michaud Covered Member ID Michaud Member ID Guarantor Name 05/17/2023 1 [employer] Donaldo Mosher [id number] 1 Donaldo Mosher 05/17/2023 1 [employer] (PPO) [id number] Donaldo Mosher [id number] 1 [id number] 01 Donaldo Mosher 07/29/2023 1 [employer] ([employer]) [id number] Donaldo Mosher [id number] 1 [id number] 01 Donaldo Mosher 10/26/2023 1 [employer] ([employer]) [id number] Donaldo Mosher [id number] 1 [id number] 01 Donaldo Mosher 03/06/2024 1 [employer] ([employer]) [id number] Donaldo Mosher [id number] 1 [id number] 01 Donaldo Mosher Notes Date Note Type Note Provider Name and Address Organization Details Recorded Time 05/17/2023 text/html Hypertension no headache or dizziness diabetes no polyphasia polydipsia hyperlipidemia could do better with red meat DVT no signs or symptoms of recurrence obesity needs to lose some weight CAD no chest pain or shortness of breath. Saida Mclaughlin MD Attn: [address] [place], [address], [facility] 05/17/2023 22:45:44 07/29/2023 text/html 62-year-old hypertension no headache or dizziness diabetes no polyphagia or polydipsia no hypoglycemia dyslipidemia does try to follow a low-fat diet but he is having trouble losing weight CAD stent no chest pain or shortness of breath history of DVT been maintained on Eliquis Saida Mclaughlin MD Attn: [address] [place], [address], [facility] 08/10/2023 20:15:43 10/26/2023 text/html diabetes no polyphagia no polydipsia is due for eye exam and an A1c he needs an LD CT chest because of his smoking history hypertension no headache or dizziness hyperlipidemia does try to watch his diet CAD no chest pain or shortness of breath history of DVT nothing to suggest recurrence obesity he could do better with some help with caloric restriction cardiology stopped his amlodipine because he was blood pressure was going to Saida Mclaughlin MD Attn: [address]ing[address] [facility], [place], [address], [facility] 10/26/2023 23:19:39 03/06/2024 text/html here for follow up of his medical problems. Hypertension no headache or dizziness blood pressure appears to be well controlled. Diabetes no polyphagia or polydipsia does take his sugars around 130-150. No polyphagia or polydipsia. CAD no angina or anginal equivalents history of DVT he does carry a little bit of swelling in his legs since his previous DVT does try to wear compression socks from time to time. Obesity he needs some guidance on losing weight as well Saida Mclaughlin MD Attn: Accounting[address] [facility], [place], [address], [facility] 03/06/2024 22:21:30
--- OUTSIDE RECORDS SUMMARY | 2024-07-02 00:57 | XMS_ITS | CONTINUITY OF CARE DOCUMENT ---
Author Name dorcas toscano Address Unknown Organization [facility] Address [address] [place] [address] Phone [phone] Care Team Providers Care Parole Hearing Officer Name Role Phone Roxy MORAN, Gabby Young Unavailable [phone] SAIDA OJEDA MD Unavailable SAIDA OJEDA MD Unavailable [phone] PROBLEMS Condition Status Date Provider Notes Family History Coronary Hear t Disease female < 65: active Gabby Ramsey MD Family History of CVA or Stroke: active Willy Ramsey MD Family History of Hypertension: active Mona Ramsey MD Cardiovascular screening active Gabby shen MD Edema - localized active Gabby Forbes AMI subendocardial active Gabby Ramsey MD Stent ? Drug Eluting active Gabby olmos MD DVT active Gabby Ramsey MD Hypercholesterolemia active Gabby olmos MD HTN essential active Gabby Ramsey MD DIABETES MELLITUS active Gabby Forbes Venous Compression Syndrome active Gabby Ramsey MD Claudication Intermittent active Gabby Ramsey MD Palpitations active Peter Funk Cardiology examination active Jinny Smyth i, NP Preop cardiovasc. examination active Lisa Garcia [facility]LVER ENCOUNTERS Date Type Provider Location Encounter Diag nosis 3 - 4 In-person encounter Office Visit Gabby Ramsey MD [facility] Preop cardiovasc. examination 3 - 0 In-person encounter Office Visit Gabby Ramsey MD [facility] Cardiology examination 7 - 8 In-person encounter Office Visit Gabby Ramsey MD [facility] Palpitations 5 - 7 In-person encounter Office Visit Gabby Ramsey MD [facility] 8 - 8 In-person encounter Office Visit Gabby Ramsey MD [facility] Office 1 - 2 In-person encounter Office Visit Gabby Ramsey MD [facility] 6 - 9 In-person encounter Office Visit Gabby Ramsey MD [facility] 5 - 8 In-person encounter Office Visit Gabby Ramsey MD [facility] 1 - 6 In-person encounter Office Visit Gabby Ramsey MD [facility] 8 - 8 In-person encounter Office Visit Gabby Ramsey MD [facility] 5 - 5 In-person encounter Office Visit Gabby Ramsey MD [facility] - 7 In-person encounter Office Visit Gabby Ramsey MD [facility] 5 - 8 In-person encounter Office Visit Gabby Ramsey MD [facility] Claudication Intermittent 4 - 7 In-person encounter Office Visit Gabby Ramsey MD [facility] 1 - 4 In-person encounter Office Visit Gabby Ramsey MD [facility] Venous Compression Syndrome 1 - 2 In-person encounter Office Visit Gabby Ramsey MD [facility] Family History Coronary Heart Disease female < 65:Family History of CVA or Stroke:Family History of Hypertension:Cardiovascular screeningEdema - localizedAMI subendocardialStent ? Drug ElutingDVTHypercholesterolemiaHTN essentialDIABETES MELLITUS VITAL SIGNS Date Observation Value Provider Body Mass Index (Ratio) 39.16 kg/m2 Mona Ramsey MD blood pressure, diastolic 67 mm[Hg] Larissa ferreiragypsy Romero blood pressure, systolic 97 mm[Hg] Amparo escobedo Romero oxygen saturation, oximetry 96 % Joaquinagypsy Romero pulse rate 87 /min Joaquina Romero respiratory rate E&M 12 /min Joaquina Romero weight E&M 326 [lb_av] Joaquina Romero height E&M 76.5 [in_i] [facility] size regular kaden Romero Body Mass Index (Ratio) 38.80 kg/m2 Mona Ramsey MD blood pressure, diastolic 64 mm[Hg] Faiza nkLog blood pressure, systolic 116 mm[Hg] Cesia kLog oxygen saturation, oximetry 96 % Radhaamarilis Larsen blood pressure, cuff size regular Rich rajan Larsen blood pressure, diastolic 64 mm[Hg] Ta bitha Larsen blood pressure, systolic 116 mm[Hg] Tab itha Chava pulse rate 96 /min Radha Larsen weight E&M 323 [lb_av] Radha Larsen respiratory rate E&M 12 /min Radha Larsen height E&M 76.5 [in_i] Radha Larsen Body Mass Index (Ratio) 40.48 kg/m2 Barbara Rodriguez CRYSTALLOGRAPHER blood pressure, diastolic 77 mm[Hg] Li nkLogic blood pressure, systolic 124 mm[Hg] Cesia blood pressure, cuff size regular Ja rret blood pressure, diastolic 77 mm[Hg] Ja rret blood pressure, systolic 124 mm[Hg] Jar ret pulse rate 88 /min Tom oxygen saturation, oximetry 95 % respiratory rate E&M 16 /min weight E&M 337 [lb_av] Tom y height E&M 76.5 [in_i] Tom y Body Mass Index (Ratio) 39.76 kg/m2 Mona Ramsey MD blood pressure, diastolic 69 mm[Hg] Li nkLog blood pressure, systolic 116 mm[Hg] Cesia blood pressure, cuff size regular Ja rret blood pressure, diastolic 69 mm[Hg] Ja rret blood pressure, systolic 116 mm[Hg] Jar ret pulse rate 76 /min Tom respiratory rate E&M 12 /min Tom oxygen saturation, oximetry 95 % weight E&M 331 [lb_av] Tom y height E&M 76.5 [in_i] Tom y Body Mass Index (Ratio) 36.76 kg/m2 Mona Ramsey MD blood pressure, diastolic 68 mm[Hg] Li nkLogic blood pressure, systolic 116 mm[Hg] Cesia kLogic blood pressure, diastolic 68 mm[Hg] Arlette moncada [place] blood pressure, systolic 116 mm[Hg] Immanuel mary [place] oxygen saturation, oximetry 96 % Kimberlee Lucas pulse rate 82 /min Kimberlee forbes weight E&M 306 [lb_av] Kimberlee Jones david respiratory rate E&M 16 /min Lynne blanco [place] blood pressure, cuff size large Arlette moncada [place] height E&M 76.5 [in_i] Kimberlee Jones david Body Mass Index (Ratio) 34.00 kg/m2 Mona Ramsey MD blood pressure, cuff size large Ke rri Gruenenfelder blood pressure, diastolic 88 mm[Hg] Ke rri Gruenenfelder blood pressure, systolic 154 mm[Hg] Ker ri Gruenenfelder oxygen saturation, oximetry 98 % Maru Gruenenfelder respiratory rate E&M 16 /min Maru G ruenenfelder pulse rate 82 /min Maru Gruenenfe lder weight E&M 283 [lb_av] Maru Gruenenfe lder height E&M 76.5 [in_i] Maru Gruenenfe lder Body Mass Index (Ratio) 31.23 kg/m2 oMna Ramsey MD blood pressure, cuff size large Ke rri Gruenenfelder blood pressure, diastolic 76 mm[Hg] Ke rri Gruenenfelder blood pressure, systolic 150 mm[Hg] Ker ri Gruenenfelder oxygen saturation, oximetry 98 % Maru Gruenenfelder respiratory rate E&M 16 /min Maru G ruenenfelder pulse rate 88 /min Maru Gruenenfe lder weight E&M 260 [lb_av] Maru Gruenenfe lder height E&M 76.5 [in_i] Maru Gruenenfe er Body Mass Index (Ratio) 34.72 kg/m2 Mona Ramsey MD blood pressure, cuff size large Ke rri Gruenenfeldparesh blood pressure, diastolic 80 mm[Hg] Ke rri Estuardouenenfeldparesh blood pressure, systolic 146 mm[Hg] Luis ri Yogesh oxygen saturation, oximetry 98 % Maru Yogesh respiratory rate E&M 14 /min Maru Oleksandr singletary pulse rate 87 /min Maru Tarike er weight E&M 289 [lb_av] Maru Chrisnfe er height E&M 76.5 [in_i] Maru Aggienenfe er Body Mass Index (Ratio) 36.45 kg/m2 Mona Ramsey MD blood pressure, diastolic 70 mm[Hg] Faiza nkLogic blood pressure, systolic 148 mm[Hg] Cesia kLogic blood pressure, diastolic 70 mm[Hg] José Antonio Ambriz blood pressure, systolic 148 mm[Hg] Marianne Ambriz oxygen saturation, oximetry 98 % Soledad Ambriz respiratory rate E&M 16 /min Francisco Ambriz pulse rate 90 /min Soledad rausch weight E&M 303.4 [lb_av] Soledad mack height E&M 76.5 [in_i] Soledad rausch Body Mass Index (Ratio) 35.58 kg/m2 Mona Ramsey MD blood pressure, diastolic 70 mm[Hg] José Antonio Ambriz blood pressure, systolic 148 mm[Hg] Marianne Ambriz oxygen saturation, oximetry 97 % Soledad Ambriz respiratory rate E&M 18 /min Francisco Ambriz pulse rate 101 /min Soledad rausch weight E&M 296.2 [lb_av] Soledad laoon height E&M 76.5 [in_i] Soledad Hayes nson Body Mass Index (Ratio) 34.24 kg/m2 Mona Ramsey MD blood pressure, diastolic 84 mm[Hg] To nsha Cardoso blood pressure, systolic 153 mm[Hg] Ton [facility] oxygen saturation, oximetry 98 % Tonsha Cardoso respiratory rate E&M 16 /min Tonsha Cardoso pulse rate 89 /min Tonsha Cardoso weight E&M 285 [lb_av] Tonsha Cardoso height E&M 76.5 [in_i] Tonsha Cardoso Body Mass Index (Ratio) 36.04 kg/m2 Roverto Nielson blood pressure, cuff size regular Kr isty Cherry Log blood pressure, diastolic 80 mm[Hg] Kr isty Cherry Log blood pressure, systolic 150 mm[Hg] Kri sty Cherry Log pulse rate 91 /min Ruby Dashawn oxygen saturation, oximetry 98 % Ruby Dashawn respiratory rate E&M 19 /min Ruby Dashawn weight E&M 300 [lb_av] Ruby Cherry Log height E&M 76.5 [in_i] Ruby Dashawn Body Mass Index (Ratio) 35.56 kg/m2 Mona Ramsey MD respiratory rate E&M 16 /min Tonsha Cardoso blood pressure, diastolic 82 mm[Hg] To nsha Cardoso blood pressure, systolic 132 mm[Hg] Ton sha Cardoso oxygen saturation, oximetry 97 % Tonsha Cardoso pulse rate 66 /min Tonsha Cardoso weight E&M 296 [lb_av] Tonsha Cardoso height E&M 76.5 [in_i] Tonsha Cardoso temperature site temporal Renetta Tank sley temperature E&M 96.6 [degF] Renteta Tanks jenaro Body Mass Index (Ratio) 34.60 kg/m2 Mona Ramsey MD pulse rate 83 /min [facility] oxygen saturation, oximetry 97 % Irlanda Block blood pressure, diastolic 72 mm[Hg] Br ittany Block blood pressure, systolic 130 mm[Hg] Jeanie ttany Block weight E&M 288 [lb_av] Irlanda Block respiratory rate E&M 16 /min [facility] height E&M 76.5 [in_i] Irlanda Block Body Mass Index (Ratio) 35.20 kg/m2 Mona Ramsey MD blood pressure, diastolic 91 mm[Hg] [facility], [facility] 153 mm[Hg] Ton [facility] respiratory rate E&M 18 /min [facility] Cardoso oxygen saturation, oximetry 97 % [facility] Cardoso pulse rate 84 /min [facility] Cardoso weight E&M 293 [lb_av] Tons Cardoso height E&M 76.5 [in_i] Tonsha Cardoso Body Mass Index (Ratio) 34.48 kg/m2 Mona Ramsey MD blood pressure, diastolic 82 mm[Hg] Er ica [place]-Sukhdeep blood pressure, systolic 122 mm[Hg] Stephanie ca Los-Sukhdeep oxygen saturation, oximetry 98 % Mignon ClementsSukhdeep pulse rate 68 /min Mignon MadisonDom Sukhdeep blood pressure, resting No Cl olmos MadisonDomSukhdeep weight E&M 287 [lb_av] Mignon Ruanoe height E&M 76.5 [in_i] Mignon Clements Sukhdeep ALLERGIES No Known Drug Allergies RESULTS Date Observation Value Provider Reference Range Interpretation Location pro brain natriuretic peptide 67 pg/mL LinkLogic 0-210 c-reactive protein, quantitative, serum 2.37 mg/L Link[facility] 0.00-3.00 hemoglobin A1C, blood, as % of total hemoglobin 7.5 % [facility] 4.8-5.6 High lipoprotein, beta, serum, point, quantitative, calculated 71 mg/dL [facility] 0-99 HDL cholesterol, serum 52 mg/dL [facility] >39 triglyceride, serum, random 47 mg/dL [facility] 0-149 cholesterol, serum 134 mg/dL [facility] 120-216 6553/11/ 25 alanine aminotransferase (SGPT), serum 16 1/L [facility] 0-44 aspartate aminotransferase (SGOT), serum 13 1/L [facility] 0-40 alkaline phosphatase, serum 61 1/L [facility] 44-121 bilirubin, serum, total 0.2 mg/dL [facility] 0.0-1.2 albumin/globulin ratio, serum 1.2 [facility] 1.2-2.2 globulin, serum 3.2 [facility] 1.5-4.5 albumin, serum 3.8 g/dL [facility] 3.8-4.9 protein, total, serum 7.0 g/dL [facility] 6.0-8.5 calcium, serum 9.1 mg/dL [facility] 8.6-10.2 carbon dioxide, venous blood 22 mmol/L [facility] -29 chloride, serum 101 mmol/L [facility] 96-106 potassium, serum 4.7 mmol/L [facility] 3.5-5.2 sodium, serum 139 mmol/L [facility] [phone]/11/ 25 urea nitrogen/creatinine ratio, serum 25 [facility] 10-24 High creatinine, serum 0.77 mg/dL [facility] 0.76-1.27 urea nitrogen, blood 19 mg/dL [facility] 8-27 blood glucose, random 117 mg/dL [facility] 70-99 High prothrombin time (patient) 10.3 s [facility] 9.1-12.0 international normalized ratio (INR) 1.0 [facility] 0.8-1.2 lipoprotein, beta, serum, point, quantitative, calculated 81 mg/dL [facility] 0-99 very low density lipoproteins 9 mg/dL [facility] 5-40 HDL cholesterol, serum 52 mg/dL Link[facility]ic >39 triglyceride, serum, random 44 mg/dL [facility]ic 0-149 cholesterol, serum 142 mg/dL [facility] [phone]/05/ 02 calcium, serum 9.3 mg/dL [facility] 8.7-10.2 carbon dioxide, venous blood 26 mmol/L LinkLogic - chloride, serum 106 mmol/L [facility] 96-106 potassium, serum 5.5 mmol/L [facility] 3.5-5.2 High sodium, serum 146 mmol/L [facility] 134-144 High urea nitrogen/creatinine ratio, serum 17 [facility] 9-20 eGFR if 127 mL/min/{1 .73_m2} LinkLogic >59 eGFR if not 109 mL/min/{1 .73_m2} Link[facility]ic >59 creatinine, serum 0.64 mg/dL [facility] 0.76-1.27 Low urea nitrogen, blood 11 mg/dL Link[facility]ic 6-24 blood glucose, random 142 mg/dL [facility] 65-99 High basophil count, absolute 0.0 x10E3/uL LinkLogic 0.0-0.2 Eosinophil Absolute Count 0.3 X10E3/UL [facility] 0.0-0.4 monocyte count, blood, automated 0.8 X10E3/UL [facility] 0.1-0.9 lymphocyte count, blood, automated 2.6 X10E3/UL [facility] 0.7-3.1 Absolute Neutrophils 3.4 X10E3/UL [facility] 1.4-7.0 basophils as percent of blood leukocytes 0 % LinkLogic Not Estab. eosinophils as percent of blood leukocytes 4 % LinkLogic Not Estab. monocytes as percent of blood leukocytes 11 % LinkLogic Not Estab. lymphocytes as percent of blood leukocytes 36 % LinkLogic Not Estab. neutrophils as percent of blood leukocytes 49 % LinkLogic Not Estab. platelet count 284 X10E3/UL [facility] [phone]/05/ 02 red blood cell distribution width 13.4 % Link[facility]ic 11.6-15.4 mean corpuscular hemoglobin concentration, RBC 33.0 G/DL LinkLogic 31.5-35.7 mean corpuscular hemoglobin, RBC 29.9 pg LinkLogic 26.6-33.0 mean corpuscular volume, RBC 91 fL LinkLogic 79-97 hematocrit, blood 40.0 % LinkLog 37.5-51.0 hemoglobin, blood 13.2 g/dL LinkLogic 13.0-17.7 erythrocyte (RBC) count 4.41 X10E6/UL LinkLogic 4.14-5.80 leukocyte count, blood 7.1 X10E3/UL LinkLogic 3.4-10.8 LDL cholesterol, serum 50 mg/dL Gabby Ramsey MD HISTORY OF MEDICATION USE Medication Status Instructions Dates Provider Indications Com ments Kim SoloStar U-300 Insulin 300 unit/mL (1.5 mL) insulin pen active 40 units daily Lisa Bakeredwardwale SHELVER Fiasp FlexTouch U-100 Insulin 100 unit/mL (3 mL) insulin pen active 30 UNITS TWICE A DAY Lilliam Rodriguez NP Ozempic 1 mg/dose (4 mg/3 mL) pen injector active 0.25MG ON SATURDAYS Lilliam Rodriguez NP lisinopril 20 mg tablet active TAKE 1 TABLET BY MOUTH EVERY DAY Lisa Radha ARAMBULAP atorvastatin 80 mg tablet active TAKE 1 TABLET BY MOUTH EVERY DAY 05/19 Lenora Coronado hydrochlorothiazi de 25 mg tablet active TAKE 1 TABLET BY MOUTH EVERY DAY Lenora Coronado Jardiance 10 mg tablet active TAKE 1 TABLET BY MOUTH EVERY DAY Lenora Coronado metoprolol succinate 25 mg tablet extended release 24 hr active TAKE 1 TABLET BY MOUTH EVERY DAY 04/04 Nilda Rushi amlodipine 5 mg tablet completed TAKE 1 TABLET BY MOUTH EVERY DAY 04/04 - 10/13 Jinny Lagunas NP clopidogrel 75 mg tablet active TAKE 1 TABLET BY MOUTH EVERY DAY Nilda Rushing clopidogrel 75 mg tablet completed Take 1 tablet by mouth once a day 02/25 [facility] mg tablet active TAKE 1 TABLET BY MOUTH TWICE A DAY 02/25 Betty Bose #60, 30 days supply, Prescribed by SAIDA OJEDA, Filled 12/11/2018 hydrochlorothiazi de 25 mg tablet completed Take 1 tablet by mouth once a day 02/25 - Tom Ruiz Lipitor 80 mg tablet completed Take 1 tablet by mouth once a day 02/25 - 05/19 Tom Ruiz #30, 30 days supply, Prescribed by SAIDA OJEDA, Filled 11/24/2018 metoprolol succinate 25 mg tablet extended release 24 hr completed Take 1 tablet by mouth once a day 02/25 - 04/04 Aminah Garridoiz #30, 30 days supply, Prescribed by BETTY KNIGHT, Filled 12/04/2018 quinapril 20 mg tablet completed Take 1 tablet by mouth twice a day 02/25 - 08/17 Lilliam Rodriguez CRYSTALLOGRAPHER #60, 30 days supply, Prescribed by SAIDA OJEDA, Filled 11/24/2018 Norvasc 5 mg tablet completed TAKE 1 TABLET DAILY 03/03 - 04/04 Aminah Hooper hydrochlorothiazi de 25 mg tablet completed TAKE 1 TABLET BY MOUTH EVERY DAY 06/09 - 02/25 Maru Zuñiga clopidogrel 75 mg tablet completed TAKE 1 TABLET BY MOUTH DAILY 11/04 - 02/25 Maru Zuñiga hydrochlorothiazi de 25 mg tablet completed Take 1 tablet by mouth once a day 09/10 - 06/09 Gabby Ramsey MD HTN essential hydrochlorothiazi de 12.5 mg capsule completed 1 tablet once a day 11/15 - 09/10 Gabby Ramsey MD CLOPIDOGREL BISULFATE 75 MG ORAL TABLET completed Take one tablet daily 06/25 - 07/25 Yuli Cardoza RN Jardiance 10 mg tablet completed Take 1 tablet by mouth once a day 03/01 - Tom Ruiz #30, 30 days supply, Prescribed by SAIDA OJEDA, Filled 03/01/2019 metformin 1,000 mg tablet active 1 tablet twice a day 08/18 Soledad Ambriz #60, 30 days supply, Filled 08/18/2018 Humalog Mix 75-25 KwikPen 100 unit/mL (75-25) insulin pen completed Inject 40 unit subcutaneously twice a day 11/09 - 08/17 Lilliam Rodriguez CRYSTALLOGRAPHER #9, 10 days supply, Prescribed by SAIDA OJEDA, Filled 11/09/2018 clopidogrel 75 mg tablet completed 1 tablet once a day 11/08 - 11/04 Mary Booker #30, 30 days supply, Prescribed by GABBY RAMSEY, Filled 11/08/2018 quinapril 20 mg tablet completed 1 tablet twice a day 07/20 - 02/25 Maru Younger #60, 30 days supply, Prescribed by SAIDA OJEDA, Filled 11/24/2018 BYDUREON 2 MG SUBCUTANEOUS PEN-INJECTOR completed as directed - 08/17 Lilliam Rodriguez CRYSTALLOGRAPHER #4, 28 days supply, Filled 12/19/2018 Lipitor 80 mg tablet completed 1 tablet once a day 07/20 - 02/25 Maru Younger #30, 30 days supply, Prescribed by SAIDA OJEDA, Filled 11/24/2018 metoprolol succinate 25 mg tablet extended release 24 hr completed 1 tablet once a day 11/08 - 02/25 Maru Younger #30, 30 days supply, Prescribed by BETTY KNIGHT, Filled 12/04/2018 Eliquis 5 mg tablet completed 1 tablet twice a day - 02/25 Maru Younger #60, 30 days supply, Prescribed by SAIDA OJEDA, Filled 12/11/2018 SOCIAL HISTORY Date Observation Value Provider personal history of marijuana use no Lisa Garcia [facility] drug use no Lisarobin Blairmig nain [facility] alcohol use no Lisa Johnniemig nain [facility] smoking, year quit 2018 Lisa Debra vences [facility] number of years as a smoker 35 a Lisa Carrilloia [facility] smoking history, tot al pack/day 1 Lisarobin Bakerglia [facility] cigarette use yes Lisa Blairmi glia [facility] smoking status Former smoker Lisa Johnnie younga [facility] personal history of marijuana use no Jinny Lagunas CRYSTALLOGRAPHER drug use no Jinny Lagunas CRYSTALLOGRAPHER alcohol use no Jinny Lagunas CRYSTALLOGRAPHER smoking, year quit 2019 Jinny Baca [employer]YSTALLOGRAPHER number of years as a smoker 35 a Jinny Lopezri CRYSTALLOGRAPHER smoking history, tot al pack/day 1 Jinny Lopezri CRYSTALLOGRAPHER cigarette use yes Jinny Lopezri [employer]YSTALLOGRAPHER smoking status Former smoker Jinny Lopez ri CRYSTALLOGRAPHER number of years as a smoker 35 a Lilliam Yungr CRYSTALLOGRAPHER smoking history, tot al pack/day 1 Lilliam Burroughsdler [employer]YSTALLOGRAPHER cigarette use yes Lilliam Burroughsdl er [employer]YSTALLOGRAPHER smoking status Former smoker Lilliam Burroughs dler CRYSTALLOGRAPHER Exercise counseling Yes Lilliam Burroughsdler CRYSTALLOGRAPHER smoking status Former smoker Gabby randle MD social history reviewed E&M revi ewed - no changes required Gabby Ramsey MD smoking status Former smoker Kimberlee Celeste thornton social history E&M S moking History: Kiersten riddle is a former smoker. Gabby Ramsey MD social history reviewed E&M revi ewed - no changes required Gabby Ramsey MD smoking status Former smoker Maru Perez [facility] social history E&M S moking History: Kiersten riddle is a former smoker. Gabby Ramsey MD social history reviewed E&M revi ewed - no changes required Gabby Ramsey MD smoking status Former smoker Maru Perez [facility] social history reviewed E&M revi ewed - no changes required Gabby Ramsey MD social history E&M S moking History: Kiersten riddle is a former smoker. Gabby Ramsey MD smoking status Former smoker Maru Perez [facility] social history E&M S moking History: Kiersten riddle is a former smoker. Gabby Ramsey MD social history reviewed E&M revi ewed - no changes required Gabby Ramsey MD smoking status Former smoker Soledad Kang social history E&M S moking History: Kiersten riddle is a former smoker. Gabby Ramsey MD social history reviewed E&M revi ewed - no changes required Gabby Ramsey MD smoking status Former smoker Soledad Kang smoking status Former smoker Gabby randle MD social history reviewed E&M revi ewed - no changes required Gabby Ramsey MD social history E&M S moking History: Kiersten riddle is a former smoker. Gabby Ramsey MD smoking status Former smoker Ruben Giuseppe olivares social history E&M S moking History: Kiersten riddle is a former smoker. Ruben Nielson social history reviewed E&M revi ewed - no changes required Ruben Nielson social history E&M S moking History: Kiersten riddle is a former smoker. Gabby Ramsey MD social history reviewed E&M revi ewed - no changes required Gabby Ramsey MD smoking status Former smoker Nicole Cardoso social history E&M S moking History: Kiersten riddle is a former smoker. Gabby Ramsey MD social history reviewed E&M revi ewed - no changes required Gabby Ramsey MD smoking status Former smoker Gabby randle MD social history E&M S moking History: Kiersten riddle is a former smoker. Gabby Ramsey MD social history reviewed E&M revi ewed - no changes required Gabby Ramsey MD smoking status Former smoker Tonsha Cardoso number of grandchildren Gabby Ramsey MD social history E&M S moking History: P atient is a former smoker. Gabby Ramsey MD social history reviewed E&M toya conklin - no changes required Mignon Sears smoking status Former smoker Mignon Ovalle FUNCTIONAL STATUS Date Observation Value Provider HRA, CV Assess/Plan, Angina (inactive) Management Plan continue current therapy Jinny Lagunas CRYSTALLOGRAPHER HRA, CV Assess/Plan, Angina (inactive) Management Plan continue current therapy Lilliam Rodriguez CRYSTALLOGRAPHER HRA, CV Assess/Plan, Angina (inactive) Management Plan continue current therapy Gabby Ramsey MD HRA, CV Assess/Plan, Angina (inactive) Management Plan continue current therapy Gabby Ramsey MD HRA, CV Assess/Plan, Angina (inactive) Management Plan continue current therapy Gabby Ramsey MD HRA, CV Assess/Plan, Angina (inactive) Management Plan continue current therapy Gabby Ramsey MD HRA, CV Assess/Plan, Angina (inactive) Management Plan continue current therapy Gabby Ramsey MD HRA, CV Assess/Plan, Angina (inactive) Management Plan continue current therapy Gabby Ramsey MD HRA, CV Assess/Plan, Angina (inactive) Management Plan continue current therapy Gabby Ramsey MD HRA, CV Assess/Plan, Angina (inactive) Management Plan continue current therapy Gabby Ramsey MD HRA, CV Assess/Plan, Angina (inactive) Management Plan continue current therapy Gabby Ramsey MD HRA, CV Assess/Plan, Angina (inactive) Management Plan continue current therapy Gabby Ramsey MD HRA, CV Assess/Plan, Angina (inactive) Management Plan continue current therapy Gabby Ramsey MD HRA, CV Assess/Plan, Angina (inactive) Management Plan continue current therapy Gabby Ramsey MD FAMILY HISTORY Family Member Condition Mother [place] female <65 Mother Family History of Hy pertension: Mother Family History of CV A or Stroke: Mother Family History Coron zeferino Heart Disease female < 65: INSURANCE PROVIDERS Payer name Policy type / Coverage type Kathleen red democrat ID [employer] [id number] ADVANCE DIRECTIVES Name Date DISCUSSED - NO DECISION MADE TREATMENT PLAN Date Name Performer [id number],S, P lavix alone. Not on ASA. Since he is taking Eliquis. Hx of DVT. Has completed 12 months of Plavix with Eliquis hrombectomy of the proximal LAD, 99% thrombotic lesion with EXPort catheter thrombectomy, i ntravascular ultrasound followed by cutting balloon angioplasty with a 3.0 x 15 cutting balloon and s tenting of the proximal LAD with IVUS guidance after nitroglycerin with a 3 x 22 Orsiro Biotronik d rug-eluting stent. Remain on Eliquis and Plavix, not on ASA. No bleeding issues. September 10, 2020 c ontinues on eloquis and plavix January 01, 2022 N o bleeding on Eliquis and Plavix January 05, 2023 n o bleeding on eliquis and plavix Gabby Ramsey MD [id number],S, H is updated medication list for this problem includes: Lipitor 80 Mg Tablet (Atorvastatin) ..... Take 1 tablet by mouth once a day C HOL: 142 (06/23/2019) HDL: 52 (06/23/2019) Gabby Ramsey MD [id number],C, hrombectomy of the proximal LAD, 99% thrombotic lesion with EXPort catheter thrombectomy, i ntravascular ultrasound followed by cutting balloon angioplasty with a 3.0 x 15 cutting balloon and s tenting of the proximal LAD with IVUS guidance after nitroglycerin with a 3 x 22 Or[employer] Biotron[employer] d rug-eluting stent. Remain on Eliquis and Plavix, not on ASA. No bleeding issues. January 01, 2022 S tress Test 12/14/21 C ONCLUSIONS: 1 . Normal sinus rhythm. 2 . Normal Regadenoson ECG with no ischemic ST or T changes. There is no ECG evidence of myocardial ischemia with v asodilator stress. 3 . Normal left ventricle size. 4 . Left Ventricular Ejection Fraction is 60 % TID: 1.15. 5 . Normal myocardial perfusion imaging with no evidence of ischemia or scar. Gabby Ramsey MD [id number],C P ost revasc DEVIN 07/2019: 1 . Normal arterial flow of the lower extremities above the level of the knee bilaterally. Mild diffuse atherosclerosis b ilaterally. 2 . There is normal flow in right HARMONY and left BALER. 3 . There is moderate to possible severe disease of the right BALER and left HARMONY. 4 . Unable to compress arteries to obtain DEVIN values. At present, will continue to observe. Have him ambulate. See if numbness in the leg improves gradually over time. If no significant improvement, will offer Laser BALER of the Left PER and BARRERA. Gabby Ramsey MD [id number],Toño S ays that A1C was elevated. W ill check stress test, he had CAD and el January 01, 2022 S tress test and echo reviewed. His updated medication list for this problem includes: Humalog Mix 75-25 Kwikpen 100 Unit/ml (75-25) Insulin Pen (Insulin lispro protamin-lispro) ..... Inject 40 unit subcutaneously twice a day Quinapril 20 Mg Tablet (Quinapril) ..... 1 tablet twice a day Metformin 1,000 Mg Tablet (Metformin) ..... 1 tablet twice a day Jardiance 10 Mg Tablet (Empagliflozin) ..... Take 1 tablet by mouth once a day Gabby Ramsey MD [id number],C, B P today: 116/69 P rior BP: 116/68 (07/08/2022) Labs Reviewed: C reat: 0.64 (06/23/2019) C hol: 142 (06/23/2019) HDL: 52 (06/23/2019) His updated medication list for this problem includes: Metoprolol Succinate 25 Mg Tablet Extended Release 24 Hr (Metoprolol succinate) ..... Take 1 tablet by mouth once a day Quinapril 20 Mg Tablet (Quinapril) ..... Take 1 tablet by mouth twice a day Hydrochlorothiazide 25 Mg Tablet (Hydrochlorothiazide) ..... Take 1 tablet by mouth once a day Norvasc 5 Mg Tablet (Amlodipine) ..... Take 1 tablet daily Gabby Ramsey MD [id number],David Mcknight FOLLOWS BLOOD WORK H is updated medication list for this problem includes: Lipitor 80 Mg Tablet (Atorvastatin) ..... Take 1 tablet by mouth once a day C HOL: 142 (06/23/2019) HDL: 52 (06/23/2019) Gabby Ramsey MD [id number],C, B P today: 116/68 P rior BP: 154/88 (01/01/2022) Labs Reviewed: C reat: 0.64 (06/23/2019) C hol: 142 (06/23/2019) HDL: 52 (06/23/2019) His updated medication list for this problem includes: Metoprolol Succinate 25 Mg Tablet Extended Release 24 Hr (Metoprolol succinate) ..... Take 1 tablet by mouth once a day Quinapril 20 Mg Tablet (Quinapril) ..... Take 1 tablet by mouth twice a day Hydrochlorothiazide 25 Mg Tablet (Hydrochlorothiazide) ..... Take 1 tablet by mouth once a day Norvasc 5 Mg Tablet (Amlodipine) ..... Take 1 tablet daily Gabby Ramsey MD [id number],B, L > R . May be related to venous reflux or May Thurner syndrome. Check venous doppler. Conclusions: 1 . Chronic DVT of the right lower extremity in the right femoral vein and right popliteal vein. 2 . Venous insufficiency of the left sapheno femoral junction. 3 . Significant venous insufficiency of the greater saphenous vein bilaterally. 4 . Significant venous insufficiency of the right femoral vein. 5 . Significant venous insufficiency of the popliteal vein bilaterally. 6 . Abnormal pulsitile venous flow seen bilaterally. VENOUS DOPPLER REVIEWED. HE DOESN'T HAVE MUCH IN THE WAY OF ANY RIGHT HEART FAILURE. WILL OBTAIN VENOUS US WITH IVUS AND VENOGRAM. HE WILL NEED TO COME OFF OF ELIQUIS FOR 3 DAYS PRIOR TO THE PROCEDURE. April 17, 2021 2 020 Venogram IMPRESSION: 1 . Successful PTV of LCIV inferior branch increasing CSA by 100.4 mm2. This area was not stented as there was concern if this was a collateral formed post DVT or indeed if this is a full thickness LCIV. Additionally, CT Venogram did not demonstrate a bifurcating LCIV. RECOMMENDATIONS: 1 . Clinical follow up and continued use of compression stockings and anticoagulation. Gabby Ramsey MD [id number],C, H e had BALER of the LCIV. Has noted some benfit with additional use of compression stockings. I reviewed the venogram with him- it is not straight forward as to which branch of the LCIV to stent, and unclear if one is mi'kmaq and the other one is a collateral that may have developed due to his prior hx of DVT despite use of IVUS. February 29, 2020 p riya for cont'd conservative therapy September 10, 2020 continue with compression January 01, 2022 C ontinues with compression stokcings at present July 08, 2022 s elaine has imp[roved intermittently uses the compression stockings Gabby Ramsey MD [id number],C, J anuary 2020 C heck DVT study for resolution of clot in the R leg June 15, 2019 H e had MTS eval negative on CT venogram. Has B/L insufficiency noted, recommend compression stockings. No acute DVT noted and should be safe to wear stockings. On Eliquis. H ad DVT study done and reflux. WIll obtain CT venogram to evaluate for MTS. May explain why his legs are swollen. 1 03/09/18Conclusions: 1 . Chronic DVT of the right lower extremity in the right femoral vein and right popliteal vein. 2 . Venous insufficiency of the left sapheno femoral junction. 3 . Significant venous insufficiency of the greater saphenous vein bilaterally. 4 . Significant venous insufficiency of the right femoral vein. 5 . Significant venous insufficiency of the popliteal vein bilaterally. 6 . Abnormal pulsitile venous flow seen bilaterally. NOT WEARING COMPRESSION STOCKINGS DUE TO BELOW KNEE PAD. J char 2020 c ontinues with eloquis 5 bid October 16, 2021 N o new bleeding on Eliquis January 01, 2022 1 DVT study C ONCLUSIONS: 1 . No evidence of a deep vein thrombosis of the lower extremities bilaterally. Gabby Ramsey MD [id number],C, S ays that A1C was elevated. W ill check stress test, he had CAD and el January 01, 2022 S tress test and echo reviewed. His updated medication list for this problem includes: Humalog Mix 75-25 Kwikpen 100 Unit/ml (75-25) Insulin Pen (Insulin lispro protamin-lispro) ..... Inject 40 unit subcutaneously twice a day Quinapril 20 Mg Tablet (Quinapril) ..... 1 tablet twice a day Metformin 1,000 Mg Tablet (Metformin) ..... 1 tablet twice a day Jardiance 10 Mg Tablet (Empagliflozin) ..... Take 1 tablet by mouth once a day Gabby Ramsey MD [id number],C, L > R . May be related to venous reflux or May Thurner syndrome. Check venous doppler. Conclusions: 1 . Chronic DVT of the right lower extremity in the right femoral vein and right popliteal vein. 2 . Venous insufficiency of the left sapheno femoral junction. 3 . Significant venous insufficiency of the greater saphenous vein bilaterally. 4 . Significant venous insufficiency of the right femoral vein. 5 . Significant venous insufficiency of the popliteal vein bilaterally. 6 . Abnormal pulsitile venous flow seen bilaterally. VENOUS DOPPLER REVIEWED. HE DOESN'T HAVE MUCH IN THE WAY OF ANY RIGHT HEART FAILURE. WILL OBTAIN VENOUS US WITH IVUS AND VENOGRAM. HE WILL NEED TO COME OFF OF ELIQUIS FOR 3 DAYS PRIOR TO THE PROCEDURE. April 17, 2021 2 020 Venogram IMPRESSION: 1 . Successful PTV of LCIV inferior branch increasing CSA by 100.4 mm2. This area was not stented as there was concern if this was a collateral formed post DVT or indeed if this is a full thickness LCIV. Additionally, CT Venogram did not demonstrate a bifurcating LCIV. RECOMMENDATIONS: 1 . Clinical follow up and continued use of compression stockings and anticoagulation. Gabby Ramsey MD [id number],C, P lavix alone. Not on ASA. Since he is taking Eliquis. Hx of DVT. Has completed 12 months of Plavix with Eliquis hrombectomy of the proximal LAD, 99% thrombotic lesion with EXPort catheter thrombectomy, i ntravascular ultrasound followed by cutting balloon angioplasty with a 3.0 x 15 cutting balloon and s tenting of the proximal LAD with IVUS guidance after nitroglycerin with a 3 x 22 [employer]ron[employer] d rug-eluting stent. Remain on Eliquis and Plavix, not on ASA. No bleeding issues. September 10, 2020 c ontinues on eloquis and plavix January 01, 2022 N o bleeding on Eliquis and Plavix Gabby Ramsey MD [id number],C, J anuary 2020 C heck DVT study for resolution of clot in the R leg June 15, 2019 H e had MTS eval negative on CT venogram. Has B/L insufficiency noted, recommend compression stockings. No acute DVT noted and should be safe to wear stockings. On Eliquis. H ad DVT study done and reflux. WIll obtain CT venogram to evaluate for MTS. May explain why his legs are swollen. 1 03/09/18Conclusions: 1 . Chronic DVT of the right lower extremity in the right femoral vein and right popliteal vein. 2 . Venous insufficiency of the left sapheno femoral junction. 3 . Significant venous insufficiency of the greater saphenous vein bilaterally. 4 . Significant venous insufficiency of the right femoral vein. 5 . Significant venous insufficiency of the popliteal vein bilaterally. 6 . Abnormal pulsitile venous flow seen bilaterally. NOT WEARING COMPRESSION STOCKINGS DUE TO BELOW KNEE PAD. J char 2020 c ontinues with eloquis 5 bid October 16, 2021 N o new bleeding on Eliquis January 01, 2022 1 DVT study C ONCLUSIONS: 1 . No evidence of a deep vein thrombosis of the lower extremities bilaterally. Gabby Ramsey MD [id number],C, hrombectomy of the proximal LAD, 99% thrombotic lesion with EXPort catheter thrombectomy, i ntravascular ultrasound followed by cutting balloon angioplasty with a 3.0 x 15 cutting balloon and s tenting of the proximal LAD with IVUS guidance after nitroglycerin with a 3 x 22 Or[employer] Biotron[employer] d rug-eluting stent. Remain on Eliquis and Plavix, not on ASA. No bleeding issues. January 01, 2022 S tress Test 12/14/21 C ONCLUSIONS: 1 . Normal sinus rhythm. 2 . Normal Regadenoson ECG with no ischemic ST or T changes. There is no ECG evidence of myocardial ischemia with v asodilator stress. 3 . Normal left ventricle size. 4 . Left Ventricular Ejection Fraction is 60 % TID: 1.15. 5 . Normal myocardial perfusion imaging with no evidence of ischemia or scar. Gabby Ramsey MD [id number],C,A dded Norvasc today for BP control. Reviewed RPM monitor B P today: 154/88 P rior BP: 150/76 (10/16/2021) Labs Reviewed: C reat: 0.64 (06/23/2019) C hol: 142 (06/23/2019) HDL: 52 (06/23/2019) His updated medication list for this problem includes: Norvasc 5 Mg Tablet (Amlodipine) ..... Take 1 tablet daily Hydrochlorothiazide 25 Mg Tablet (Hydrochlorothiazide) ..... Take 1 tablet by mouth every day Quinapril 20 Mg Tablet (Quinapril) ..... 1 tablet twice a day Metoprolol Succinate 25 Mg Tablet Extended Release 24 Hr (Metoprolol succinate) ..... 1 tablet once a day Gabby Ramsey MD [id number],C, H e had BALER of the LCIV. Has noted some benfit with additional use of compression stockings. I reviewed the venogram with him- it is not straight forward as to which branch of the LCIV to stent, and unclear if one is mi'kmaq and the other one is a collateral that may have developed due to his prior hx of DVT despite use of IVUS. February 29, 2020 p riya for cont'd conservative therapy September 10, 2020 continue with compression January 01, 2022 C ontinues with compression stokcings at present Gabby Ramsey MD [id number],C,S ays that A1C was elevated. W ill check stress test, he had CAD and el Gabby Ramsey MD [id number],C, J anuary 2020 C rafia DVT study for resolution of clot in the R leg June 15, 2019 H e had MTS eval negative on CT venogram. Has B/L insufficiency noted, recommend compression stockings. No acute DVT noted and should be safe to wear stockings. On Eliquis. H ad DVT study done and reflux. WIll obtain CT venogram to evaluate for MTS. May explain why his legs are swollen. 1 03/09/18Conclusions: 1 . Chronic DVT of the right lower extremity in the right femoral vein and right popliteal vein. 2 . Venous insufficiency of the left sapheno femoral junction. 3 . Significant venous insufficiency of the greater saphenous vein bilaterally. 4 . Significant venous insufficiency of the right femoral vein. 5 . Significant venous insufficiency of the popliteal vein bilaterally. 6 . Abnormal pulsitile venous flow seen bilaterally. NOT WEARING COMPRESSION STOCKINGS DUE TO BELOW KNEE PAD. J char 2020 c ontinues with eloquis 5 bid October 16, 2021 N o new bleeding on Eliquis Gabby Ramsey MD [id number],C, L > R . May be related to venous reflux or May Thurner syndrome. Check venous doppler. Conclusions: 1 . Chronic DVT of the right lower extremity in the right femoral vein and right popliteal vein. 2 . Venous insufficiency of the left sapheno femoral junction. 3 . Significant venous insufficiency of the greater saphenous vein bilaterally. 4 . Significant venous insufficiency of the right femoral vein. 5 . Significant venous insufficiency of the popliteal vein bilaterally. 6 . Abnormal pulsitile venous flow seen bilaterally. VENOUS DOPPLER REVIEWED. HE DOESN'T HAVE MUCH IN THE WAY OF ANY RIGHT HEART FAILURE. WILL OBTAIN VENOUS US WITH IVUS AND VENOGRAM. HE WILL NEED TO COME OFF OF ELIQUIS FOR 3 DAYS PRIOR TO THE PROCEDURE. April 17, 2021 2 020 Venogram IMPRESSION: 1 . Successful PTV of LCIV inferior branch increasing CSA by 100.4 mm2. This area was not stented as there was concern if this was a collateral formed post DVT or indeed if this is a full thickness LCIV. Additionally, CT Venogram did not demonstrate a bifurcating LCIV. RECOMMENDATIONS: 1 . Clinical follow up and continued use of compression stockings and anticoagulation. Gabby Ramsey MD [id number],C, P lavix alone. Not on ASA. Since he is taking Eliquis. Hx of DVT. Has completed 12 months of Plavix with Eliquis hrombectomy of the proximal LAD, 99% thrombotic lesion with EXPort catheter thrombectomy, i ntravascular ultrasound followed by cutting balloon angioplasty with a 3.0 x 15 cutting balloon and s tenting of the proximal LAD with IVUS guidance after nitroglycerin with a 3 x 22 Orsiro Biotron[employer] d rug-eluting stent. Remain on Eliquis and Plavix, not on ASA. No bleeding issues. September 10, 2020 c ontinues on eloquis and plavix Gabby Ramsey MD [id number],C,N ew bloodwork with PCP H is updated medication list for this problem includes: Lipitor 80 Mg Tablet (Atorvastatin) ..... 1 tablet once a day C HOL: 142 (06/23/2019) HDL: 52 (06/23/2019) Gabby Ramsey MD [id number],S, L > R . May be related to venous reflux or May Thurner syndrome. Check venous doppler. Conclusions: 1 . Chronic DVT of the right lower extremity in the right femoral vein and right popliteal vein. 2 . Venous insufficiency of the left sapheno femoral junction. 3 . Significant venous insufficiency of the greater saphenous vein bilaterally. 4 . Significant venous insufficiency of the right femoral vein. 5 . Significant venous insufficiency of the popliteal vein bilaterally. 6 . Abnormal pulsitile venous flow seen bilaterally. VENOUS DOPPLER REVIEWED. HE DOESN'T HAVE MUCH IN THE WAY OF ANY RIGHT HEART FAILURE. WILL OBTAIN VENOUS US WITH IVUS AND VENOGRAM. HE WILL NEED TO COME OFF OF ELIQUIS FOR 3 DAYS PRIOR TO THE PROCEDURE. April 17, 2021 2 020 Venogram IMPRESSION: 1 . Successful PTV of LCIV inferior branch increasing CSA by 100.4 mm2. This area was not stented as there was concern if this was a collateral formed post DVT or indeed if this is a full thickness LCIV. Additionally, CT Venogram did not demonstrate a bifurcating LCIV. RECOMMENDATIONS: 1 . Clinical follow up and continued use of compression stockings and anticoagulation. Gabby Ramsey MD [id number],C, J anuary [facility] in the R leg June 15, 2019 H e had MTS eval negative on CT venogram. Has B/L insufficiency noted, recommend compression stockings. No acute DVT noted and should be safe to wear stockings. On Eliquis. H ad DVT study done and reflux. WIll obtain CT venogram to evaluate for MTS. May explain why his legs are swollen. 1 03/09/18Conclusions: 1 . Chronic DVT of the right lower extremity in the right femoral vein and right popliteal vein. 2 . Venous insufficiency of the left sapheno femoral junction. 3 . Significant venous insufficiency of the greater saphenous vein bilaterally. 4 . Significant venous insufficiency of the right femoral vein. 5 . Significant venous insufficiency of the popliteal vein bilaterally. 6 . Abnormal pulsitile venous flow seen bilaterally. NOT WEARING COMPRESSION STOCKINGS DUE TO BELOW KNEE PAD. J char 2020 c ontinues with eloquis 5 bid Gabby Ramsey MD [id number],C, P lavix alone. Not on ASA. Since he is taking Eliquis. Hx of DVT. Has completed 12 months of Plavix with Eliquis hrombectomy of the proximal LAD, 99% thrombotic lesion with EXPort catheter thrombectomy, i ntravascular ultrasound followed by cutting balloon angioplasty with a 3.0 x 15 cutting balloon and s tenting of the proximal LAD with IVUS guidance after nitroglycerin with a 3 x 22 [employer] Biotronik d rug-eluting stent. Remain on Eliquis and Plavix, not on ASA. No bleeding issues. September 10, 2020 c ontinues on eloquis and plavix Gabby Ramsey MD [id number],C, P ost revasc DEVIN 07/2019: 1 . Normal arterial flow of the lower extremities above the level of the knee bilaterally. Mild diffuse atherosclerosis b ilaterally. 2 . There is normal flow in right HARMONY and left BALER. 3 . There is moderate to possible severe disease of the right BALER and left HARMONY. 4 . Unable to compress arteries to obtain DEVIN values. At present, will continue to observe. Have him ambulate. See if numbness in the leg improves gradually over time. If no significant improvement, will offer Laser BALER of the Left PER and BARRERA. Gabby Ramsey MD [id number],C, H e had BALER of the LCIV. Has noted some benfit with additional use of compression stockings. I reviewed the venogram with him- it is not straight forward as to which branch of the LCIV to stent, and unclear if one is mi'kmaq and the other one is a collateral that may have developed due to his prior hx of DVT despite use of IVUS. February 29, 2020 p riya for cont'd conservative therapy September 10, 2020 continue with compression Gabby Ramsey MD [id number],C,R eviewed with him his BP. most likely better controlled at home H is updated medication list for this problem includes: Hydrochlorothiazide 25 Mg Tablet (Hydrochlorothiazide) ..... Take 1 tablet by mouth once a day Quinapril 20 Mg Tablet (Quinapril) ..... 1 tablet twice a day Metoprolol Succinate 25 Mg Tablet Extended Release 24 Hr (Metoprolol succinate) ..... 1 tablet once a day BP today: 146/80 P rior BP: 148/70 (09/10/2020) Labs Reviewed: C reat: 0.64 (06/23/2019) C hol: 142 (06/23/2019) HDL: 52 (06/23/2019) Gabby Ramsey MD [id number],S, H is updated medication list for this problem includes: Lipitor 80 Mg Tablet (Atorvastatin) ..... 1 tablet once a day Gabby Ramsey MD [id number],C, J anuary 2020 C rafia DVT study for resolution of clot in the R leg June 15, 2019 H e had MTS eval negative on CT venogram. Has B/L insufficiency noted, recommend compression stockings. No acute DVT noted and should be safe to wear stockings. On Eliquis. H ad DVT study done and reflux. WIll obtain CT venogram to evaluate for MTS. May explain why his legs are swollen. 1 03/09/18Conclusions: 1 . Chronic DVT of the right lower extremity in the right femoral vein and right popliteal vein. 2 . Venous insufficiency of the left sapheno femoral junction. 3 . Significant venous insufficiency of the greater saphenous vein bilaterally. 4 . Significant venous insufficiency of the right femoral vein. 5 . Significant venous insufficiency of the popliteal vein bilaterally. 6 . Abnormal pulsitile venous flow seen bilaterally. NOT WEARING COMPRESSION STOCKINGS DUE TO BELOW KNEE PAD. J char 2020 c ontinues with eloquis 5 bid Gabby Ramsey MD [id number],C, P lavix alone. Not on ASA. Since he is taking Eliquis. Hx of DVT. Has completed 12 months of Plavix with Eliquis hrombectomy of the proximal LAD, 99% thrombotic lesion with EXPort catheter thrombectomy, i ntravascular ultrasound followed by cutting balloon angioplasty with a 3.0 x 15 cutting balloon and s tenting of the proximal LAD with IVUS guidance after nitroglycerin with a 3 x 22 [employer] d rug-eluting stent. Remain on Eliquis and Plavix, not on ASA. No bleeding issues. September 10, 2020 c ontinues on eloquis and plavix Gabby Ramsey MD [id number],C, H e had BALER of the LCIV. Has noted some benfit with additional use of compression stockings. I reviewed the venogram with him- it is not straight forward as to which branch of the LCIV to stent, and unclear if one is mi'kmaq and the other one is a collateral that may have developed due to his prior hx of DVT despite use of IVUS. February 29, 2020 p riya for cont'd conservative therapy September 10, 2020 continue with compression Gabby Ramsey MD [id number],C, B P today: 148/70 P rior BP: 148/70 (02/29/2020) Labs Reviewed: C reat: 0.64 (06/23/2019) C hol: 142 (06/23/2019) HDL: 52 (06/23/2019) September 10, 2020 i ncrease HCTZ to 25 mg daily Gabby Ramsey MD Cardiology: J anuary 2020 C heck DVT study for resolution of clot in the R leg June 15, 2019 H e had MTS eval negative on CT venogram. Has B/L insufficiency noted, recommend compression stockings. No acute DVT noted and should be safe to wear stockings. On Eliquis. H ad DVT study done and reflux. WIll obtain CT venogram to evaluate for MTS. May explain why his legs are swollen. 1 03/09/18Conclusions: 1 . Chronic DVT of the right lower extremity in the right femoral vein and right popliteal vein. 2 . Venous insufficiency of the left sapheno femoral junction. 3 . Significant venous insufficiency of the greater saphenous vein bilaterally. 4 . Significant venous insufficiency of the right femoral vein. 5 . Significant venous insufficiency of the popliteal vein bilaterally. 6 . Abnormal pulsitile venous flow seen bilaterally. NOT WEARING COMPRESSION STOCKINGS DUE TO BELOW KNEE PAD. J char 2020 c ontinues with eloquis 5 bid October 16, 2021 N o new bleeding on Eliquis January 01, 2022 1 DVT study C ONCLUSIONS: 1 . No evidence of a deep vein thrombosis of the lower extremities bilaterally. August 18, 2023 p t does report intermittent claudication, or 'heaviness' in legs with ambulation that improves with rest. trace BLE edema L > R, hx of revasc LLE. October 14, 2023 c ontinues on eliquis with no bleedimg issues/concerns. Jinny Lagunas NP Cardiology: P lavix alone. Not on ASA. Since he is taking Eliquis. Hx of DVT. Has completed 12 months of Plavix with Eliquis thrombectomy of the proximal LAD, 99% thrombotic lesion with EXPort catheter thrombectomy, i ntravascular ultrasound followed by cutting balloon angioplasty with a 3.0 x 15 cutting balloon and s tenting of the proximal LAD with IVUS guidance after nitroglycerin with a 3 x 22 [employer] d rug-eluting stent. Remain on Eliquis and Plavix, not on ASA. No bleeding issues. September 10, 2020 c ontinues on eloquis and plavix & #13;January 01, 2022 N o bleeding on Eliquis and Plavix January 05, 2023 n o bleeding on eliquis and plavix August 18, 2023 n o bleeding issues. remains on eliquis and plavix October 14, 2023 n o new symptoms Verah Bonareri CRYSTALLOGR[employer]HER Cardiology: S ays that A1C was elevated. W ill check stress test, he had CAD and el January 01, 2022 S tress test and echo reviewed. August 18, 2023 gypsy blanco follows with PCP, recent labs. will request from PCP. thinks his A1c is '7 something' October 14, 2023 l abs from PCP pending Jinny Lagunas NP Cardiology: B P today: 116/64 P rior BP: 124/77 (08/18/2023) R PM Avg BP 103/58 H as been having some dizziness, will stop Amlodipine and monitor symptoms. His updated medication list for this problem includes: Lisinopril 40 Mg Tablet (Lisinopril) ..... Take 1 tablet by mouth daily Hydrochlorothiazide 25 Mg Tablet (Hydrochlorothiazide) ..... Take 1 tablet by mouth every day Metoprolol Succinate 25 Mg Tablet Extended Release 24 Hr (Metoprolol succinate) ..... Take 1 tablet by mouth every day Amlodipine 5 Mg Tablet (Amlodipine) ..... Take 1 tablet by mouth every day Jinny Lagunas NP Cardiology: H francis had BALER of the LCIV. Has noted some benfit with additional use of compression stockings. I reviewed the venogram with him- it is not straight forward as to which branch of the LCIV to stent, and unclear if one is mi'kmaq and the other one is a collateral that may have developed due to his prior hx of DVT despite use of IVUS. February 29, 2020 p riya for cont'd conservative therapy September 10, 2020 continue with compression January 01, 2022 C ontinues with compression stokcings at present July 08, 2022 s elaine has imp[roved intermittently uses the compression stockings August 18, 2023 p t states that his compression stockings were 'too tight' so he has not been using and 'need to get some more' October 14, 2023 p atient yet to get appropriate size stockings Jinny Lagunas NP Cardiology: P ost revasc DEVIN 07/2019: 1 . Normal arterial flow of the lower extremities above the level of the knee bilaterally. Mild diffuse atherosclerosis b ilaterally. 2 . There is normal flow in right HARMONY and left BALER. 3 . There is moderate to possible severe disease of the right BALER and left HARMONY. 4 . Unable to compress arteries to obtain DEVIN values. At present, will continue to observe. Have him ambulate. See if numbness in the leg improves gradually over time. If no significant improvement, will offer Laser BALER of the Left PER and BARRERA. 08/18/23 leg 'heaviness' with ambulation, improved with rest W ILL CHECK ABIs October 14, 2023 A BI 09/2023 CONCLUSIONS: 1 . Mild atherosclerosis with normal arterial flow noted in the lower extremities bilaterally above the level of the knee. 2 . Severe arterial disease of the right BALER and the left BALER/HARMONY with monophasic flow. 3 . Unable to accurately assess DEVIN's due to hardened arteries. Med management. Jinny Lagunas NP Cardiology:will check ECHO and 1 week telesentry Lilliam Rodriguez NP Cardiology: L > R . May be related to venous reflux or May Thurner syndrome. Check venous doppler. Conclusions: 2021 1 . Chronic DVT of the right lower extremity in the right femoral vein and right popliteal vein. 2 . Venous insufficiency of the left sapheno femoral junction. 3 . Significant venous insufficiency of the greater saphenous vein bilaterally. 4 . Significant venous insufficiency of the right femoral vein. 5 . Significant venous insufficiency of the popliteal vein bilaterally. 6 . Abnormal pulsitile venous flow seen bilaterally. VENOUS DOPPLER REVIEWED. HE DOESN'T HAVE MUCH IN THE WAY OF ANY RIGHT HEART FAILURE. WILL OBTAIN VENOUS US WITH IVUS AND VENOGRAM. HE WILL NEED TO COME OFF OF ELIQUIS FOR 3 DAYS PRIOR TO THE PROCEDURE. & #13;April 17, 2021 2 020 Venogram IMPRESSION: 1 . Successful PTV of LCIV inferior branch increasing CSA by 100.4 mm2. This area was not stented as there was concern if this was a collateral formed post DVT or indeed if this is a full thickness LCIV. Additionally, CT Venogram did not demonstrate a bifurcating LCIV. R ECOMMENDATIONS: 1 . Clinical follow up and continued use of compression stockings and anticoagulation August 18, 2023 p t does report intermittent claudication, or 'heaviness' in legs with ambulation that improves with rest. trace BLE edema L > R, hx of revasc LLE. reports has not been using compression stockings because 'too tight' and plans on getting new, bigger stockings. . Lilliam Rodriguez CRYSTALLOGRAPHER Cardiology:February C heck DVT study for resolution of clot in the R leg June 15, 2019 H e had MTS eval negative on CT venogram. Has B/L insufficiency noted, recommend compression stockings. No acute DVT noted and should be safe to wear stockings. On Eliquis. H ad DVT study done and reflux. WIll obtain CT venogram to evaluate for MTS. May explain why his legs are swollen. 1 03/09/18Conclusions: 1 . Chronic DVT of the right lower extremity in the right femoral vein and right popliteal vein. 2 . Venous insufficiency of the left sapheno femoral junction. 3 . Significant venous insufficiency of the greater saphenous vein bilaterally. 4 . Significant venous insufficiency of the right femoral vein. 5 . Significant venous insufficiency of the popliteal vein bilaterally. 6 . Abnormal pulsitile venous flow seen bilaterally. NOT WEARING COMPRESSION STOCKINGS DUE TO BELOW KNEE PAD. J char 2020 c ontinues with eloquis 5 bid October 16, 2021 N o new bleeding on Eliquis January 01, 2022 1 DVT study C ONCLUSIONS: 1 . No evidence of a deep vein thrombosis of the lower extremities bilaterally. August 18, 2023 p t does report intermittent claudication, or 'heaviness' in legs with ambulation that improves with rest. trace BLE edema L > R, hx of revasc LLE. Lilliam Rodriguez CRYSTALLOGRAPHER Cardiology: S ays that A1C was elevated. W ill check stress test, he had CAD and el January 01, 2022 S tress test and echo reviewed. August 18, 2023 h francis follows with PCP, recent labs. will request from PCP. thinks his A1c is '7 something' T he following medications were removed from the medication list: Quinapril 20 Mg Tablet (Quinapril) ..... Take 1 tablet by mouth twice a day Humalog Mix 75-25 Kwikpen 100 Unit/ml (75-25) Insulin Pen (Insulin lispro protamin-lispro) ..... Inject 40 unit subcutaneously twice a day His updated medication list for this problem includes: Fiasp Flextouch U-100 Insulin 100 Unit/ml (3 Ml) Insulin Pen (Insulin aspart (niacinamide)) ..... 30 units twice a day Ozempic 1 Mg/dose (4 Mg/3 Ml) Pen Injector (Semaglutide) ..... 0.25mg on saturdays Lisinopril 40 Mg Tablet (Lisinopril) ..... Take 1 tablet by mouth daily Jardiance 10 Mg Tablet (Empagliflozin) ..... Take 1 tablet by mouth every day Metformin 1,000 Mg Tablet (Metformin) ..... 1 tablet twice a day Lilliam Rodriguez NP Cardiology: H francis had BALER of the LCIV. Has noted some benfit with additional use of compression stockings. I reviewed the venogram with him- it is not straight forward as to which branch of the LCIV to stent, and unclear if one is mi'kmaq and the other one is a collateral that may have developed due to his prior hx of DVT despite use of IVUS. February 29, 2020 p riya for cont'd conservative therapy September 10, 2020 continue with compression January 01, 2022 C ontinues with compression stokcings at present July 08, 2022 s elaine has imp[roved intermittently uses the compression stockings August 18, 2023 p t states that his compression stockings were 'too tight' so he has not been using and 'need to get some more' Lilliam Rodriguez CRYSTALLOGRAPHER Cardiology:Post tyler me DEVIN 07/2019: 1 . Normal arterial flow of the lower extremities above the level of the knee bilaterally. Mild diffuse atherosclerosis b ilaterally. 2 . There is normal flow in right HARMONY and left BALER. 3 . There is moderate to possible severe disease of the right BALER and left HARMONY. 4 . Unable to compress arteries to obtain DEVIN values. At present, will continue to observe. Have him ambulate. See if numbness in the leg improves gradually over time. If no significant improvement, will offer Laser BALER of the Left PER and BARRERA. 08/18/23 leg 'heaviness' with ambulation, improved with rest W ILL CHECK ABIs Lilliam Rodriguez NP Cardiology: P lavix alone. Not on ASA. Since he is taking Eliquis. Hx of DVT. Has completed 12 months of Plavix with Eliquis thrombectomy of the proximal LAD, 99% thrombotic lesion with EXPort catheter thrombectomy, i ntravascular ultrasound followed by cutting balloon angioplasty with a 3.0 x 15 cutting balloon and s tenting of the proximal LAD with IVUS guidance after nitroglycerin with a 3 x 22 PinBridgeronik d rug-eluting stent. Remain on Eliquis and Plavix, not on ASA. No bleeding issues. September 10, 2020 c ontinues on eloquis and plavix & #13;January 01, 2022 N o bleeding on Eliquis and Plavix January 05, 2023 n o bleeding on eliquis and plavix August 18, 2023 n o bleeding issues. remains on eliquis and plavix Lilliam Rodriguez NP Cardiology:CHOL: 134 (01/15/2023) LDL: 71 (01/15/2023) HDL: 52 (01/15/2023) T (01/15/2023) His updated medication list for this problem includes: Atorvastatin 80 Mg Tablet (Atorvastatin) ..... Take 1 tablet by mouth every day Lilliam Rodriguez NP Cardiology: B P today: 124/77 P rior BP: 116/69 (01/05/2023) Labs Reviewed: C reat: 0.77 (01/15/2023) C hol: 134 (01/15/2023) HDL: 52 (01/15/2023) LDL: 71 (01/15/2023) T (01/15/2023) The following medications were removed from the medication list: Quinapril 20 Mg Tablet (Quinapril) ..... Take 1 tablet by mouth twice a day His updated medication list for this problem includes: Lisinopril 40 Mg Tablet (Lisinopril) ..... Take 1 tablet by mouth daily Hydrochlorothiazide 25 Mg Tablet (Hydrochlorothiazide) ..... Take 1 tablet by mouth every day Metoprolol Succinate 25 Mg Tablet Extended Release 24 Hr (Metoprolol succinate) ..... Take 1 tablet by mouth every day Amlodipine 5 Mg Tablet (Amlodipine) ..... Take 1 tablet by mouth every day Lilliam Rodriguez NP Cardiology: P lavix alone. Not on ASA. Since he is taking Eliquis. Hx of DVT. Has completed 12 months of Plavix with Eliquis hrombectomy of the proximal LAD, 99% thrombotic lesion with EXPort catheter thrombectomy, i ntravascular ultrasound followed by cutting balloon angioplasty with a 3.0 x 15 cutting balloon and s tenting of the proximal LAD with IVUS guidance after nitroglycerin with a 3 x 22 Orsiro Biotronik d rug-eluting stent. Remain on Eliquis and Plavix, not on ASA. No bleeding issues. September 10, 2020 c ontinues on eloquis and plavix January 01, 2022 N o bleeding on Eliquis and Plavix January 05, 2023 n o bleeding on eliquis and plavix Gabby Ramsey MD Cardiology: H is updated medication list for this problem includes: Lipitor 80 Mg Tablet (Atorvastatin) ..... Take 1 tablet by mouth once a day C HOL: 142 (06/23/2019) HDL: 52 (06/23/2019) Gabby Ramsey MD Cardiology: hrombectomy of the proximal LAD, 99% thrombotic lesion with EXPort catheter thrombectomy, i ntravascular ultrasound followed by cutting balloon angioplasty with a 3.0 x 15 cutting balloon and s tenting of the proximal LAD with IVUS guidance after nitroglycerin with a 3 x 22 Orsiro Biotronik d rug-eluting stent. Remain on Eliquis and Plavix, not on ASA. No bleeding issues. January 01, 2022 S tress Test 12/14/21 C ONCLUSIONS: 1 . Normal sinus rhythm. 2 . Normal Regadenoson ECG with no ischemic ST or T changes. There is no ECG evidence of myocardial ischemia with v asodilator stress. 3 . Normal left ventricle size. 4 . Left Ventricular Ejection Fraction is 60 % TID: 1.15. 5 . Normal myocardial perfusion imaging with no evidence of ischemia or scar. Gabby Ramsey MD Cardiology: P ost revasc DEVIN 07/2019: 1 . Normal arterial flow of the lower extremities above the level of the knee bilaterally. Mild diffuse atherosclerosis b ilaterally. 2 . There is normal flow in right HARMONY and left BALER. 3 . There is moderate to possible severe disease of the right BALER and left HARMONY. 4 . Unable to compress arteries to obtain DEVIN values. At present, will continue to observe. Have him ambulate. See if numbness in the leg improves gradually over time. If no significant improvement, will offer Laser BALER of the Left PER and BARRERA. Gabby Ramsey MD Cardiology: S ays that A1C was elevated. W ill check stress test, he had CAD and el January 01, 2022 S tress test and echo reviewed. His updated medication list for this problem includes: Humalog Mix 75-25 Kwikpen 100 Unit/ml (75-25) Insulin Pen (Insulin lispro protamin-lispro) ..... Inject 40 unit subcutaneously twice a day Quinapril 20 Mg Tablet (Quinapril) ..... 1 tablet twice a day Metformin 1,000 Mg Tablet (Metformin) ..... 1 tablet twice a day Jardiance 10 Mg Tablet (Empagliflozin) ..... Take 1 tablet by mouth once a day Gabby Ramsey MD Cardiology: B P today: 116/69 P rior BP: 116/68 (07/08/2022) Labs Reviewed: C reat: 0.64 (06/23/2019) C hol: 142 (06/23/2019) HDL: 52 (06/23/2019) His updated medication list for this problem includes: Metoprolol Succinate 25 Mg Tablet Extended Release 24 Hr (Metoprolol succinate) ..... Take 1 tablet by mouth once a day Quinapril 20 Mg Tablet (Quinapril) ..... Take 1 tablet by mouth twice a day Hydrochlorothiazide 25 Mg Tablet (Hydrochlorothiazide) ..... Take 1 tablet by mouth once a day Norvasc 5 Mg Tablet (Amlodipine) ..... Take 1 tablet daily Gabby Ramsey MD Cardiology:DR OJEDA FOLLOWS BLOOD WORK H is updated medication list for this problem includes: Lipitor 80 Mg Tablet (Atorvastatin) ..... Take 1 tablet by mouth once a day C HOL: 142 (06/23/2019) HDL: 52 (06/23/2019) Gabby Ramsey MD Cardiology: B P today: 116/68 P rior BP: 154/88 (01/01/2022) Labs Reviewed: C reat: 0.64 (06/23/2019) C hol: 142 (06/23/2019) HDL: 52 (06/23/2019) His updated medication list for this problem includes: Metoprolol Succinate 25 Mg Tablet Extended Release 24 Hr (Metoprolol succinate) ..... Take 1 tablet by mouth once a day Quinapril 20 Mg Tablet (Quinapril) ..... Take 1 tablet by mouth twice a day Hydrochlorothiazide 25 Mg Tablet (Hydrochlorothiazide) ..... Take 1 tablet by mouth once a day Norvasc 5 Mg Tablet (Amlodipine) ..... Take 1 tablet daily Gabby Ramsey MD Cardiology: L > R . May be related to venous reflux or May Thurner syndrome. Check venous doppler. Conclusions: 1 . Chronic DVT of the right lower extremity in the right femoral vein and right popliteal vein. 2 . Venous insufficiency of the left sapheno femoral junction. 3 . Significant venous insufficiency of the greater saphenous vein bilaterally. 4 . Significant venous insufficiency of the right femoral vein. 5 . Significant venous insufficiency of the popliteal vein bilaterally. 6 . Abnormal pulsitile venous flow seen bilaterally. VENOUS DOPPLER REVIEWED. HE DOESN'T HAVE MUCH IN THE WAY OF ANY RIGHT HEART FAILURE. WILL OBTAIN VENOUS US WITH IVUS AND VENOGRAM. HE WILL NEED TO COME OFF OF ELIQUIS FOR 3 DAYS PRIOR TO THE PROCEDURE. April 17, 2021 2 020 Venogram IMPRESSION: 1 . Successful PTV of LCIV inferior branch increasing CSA by 100.4 mm2. This area was not stented as there was concern if this was a collateral formed post DVT or indeed if this is a full thickness LCIV. Additionally, CT Venogram did not demonstrate a bifurcating LCIV. RECOMMENDATIONS: 1 . Clinical follow up and continued use of compression stockings and anticoagulation. Gabby Ramsey MD Cardiology: Gypsy blanco had BALER of the LCIV. Has noted some benfit with additional use of compression stockings. I reviewed the venogram with him- it is not straight forward as to which branch of the LCIV to stent, and unclear if one is mi'kmaq and the other one is a collateral that may have developed due to his prior hx of DVT despite use of IVUS. February 29, 2020 p riya for cont'd conservative therapy September 10, 2020 continue with compression January 01, 2022 C ontinues with compression stokcings at present July 08, 2022 s elaine has imp[roved intermittently uses the compression stockings Gabby Ramsey MD Cardiology: J anuary 2020 C heck DVT study for resolution of clot in the R leg June 15, 2019 H e had MTS eval negative on CT venogram. Has B/L insufficiency noted, recommend compression stockings. No acute DVT noted and should be safe to wear stockings. On Eliquis. H ad DVT study done and reflux. WIll obtain CT venogram to evaluate for MTS. May explain why his legs are swollen. 1 03/09/18Conclusions: 1 . Chronic DVT of the right lower extremity in the right femoral vein and right popliteal vein. 2 . Venous insufficiency of the left sapheno femoral junction. 3 . Significant venous insufficiency of the greater saphenous vein bilaterally. 4 . Significant venous insufficiency of the right femoral vein. 5 . Significant venous insufficiency of the popliteal vein bilaterally. 6 . Abnormal pulsitile venous flow seen bilaterally. NOT WEARING COMPRESSION STOCKINGS DUE TO BELOW KNEE PAD. J char 2020 c ontinues with eloquis 5 bid October 16, 2021 N o new bleeding on Eliquis January 01, 2022 1 DVT study C ONCLUSIONS: 1 . No evidence of a deep vein thrombosis of the lower extremities bilaterally. Gabby Ramsey MD Cardiology: S ays that A1C was elevated. W ill check stress test, he had CAD and el January 01, 2022 S tress test and echo reviewed. His updated medication list for this problem includes: Humalog Mix 75-25 Kwikpen 100 Unit/ml (75-25) Insulin Pen (Insulin lispro protamin-lispro) ..... Inject 40 unit subcutaneously twice a day Quinapril 20 Mg Tablet (Quinapril) ..... 1 tablet twice a day Metformin 1,000 Mg Tablet (Metformin) ..... 1 tablet twice a day Jardiance 10 Mg Tablet (Empagliflozin) ..... Take 1 tablet by mouth once a day Gabby Ramsey MD Cardiology: L > R . May be related to venous reflux or May Thurner syndrome. Check venous doppler. Conclusions: 1 . Chronic DVT of the right lower extremity in the right femoral vein and right popliteal vein. 2 . Venous insufficiency of the left sapheno femoral junction. 3 . Significant venous insufficiency of the greater saphenous vein bilaterally. 4 . Significant venous insufficiency of the right femoral vein. 5 . Significant venous insufficiency of the popliteal vein bilaterally. 6 . Abnormal pulsitile venous flow seen bilaterally. VENOUS DOPPLER REVIEWED. HE DOESN'T HAVE MUCH IN THE WAY OF ANY RIGHT HEART FAILURE. WILL OBTAIN VENOUS US WITH IVUS AND VENOGRAM. HE WILL NEED TO COME OFF OF ELIQUIS FOR 3 DAYS PRIOR TO THE PROCEDURE. April 17, 2021 2 020 Venogram IMPRESSION: 1 . Successful PTV of LCIV inferior branch increasing CSA by 100.4 mm2. This area was not stented as there was concern if this was a collateral formed post DVT or indeed if this is a full thickness LCIV. Additionally, CT Venogram did not demonstrate a bifurcating LCIV. RECOMMENDATIONS: 1 . Clinical follow up and continued use of compression stockings and anticoagulation. Gabby Ramsey MD Cardiology: P lavix alone. Not on ASA. Since he is taking Eliquis. Hx of DVT. Has completed 12 months of Plavix with Eliquis hrombectomy of the proximal LAD, 99% thrombotic lesion with EXPort catheter thrombectomy, i ntravascular ultrasound followed by cutting balloon angioplasty with a 3.0 x 15 cutting balloon and s tenting of the proximal LAD with IVUS guidance after nitroglycerin with a 3 x 22 PinBridgeronik d rug-eluting stent. Remain on Eliquis and Plavix, not on ASA. No bleeding issues. September 10, 2020 c ontinues on eloquis and plavix January 01, 2022 N o bleeding on Eliquis and Plavix Gabby Ramsey MD Cardiology: J anuary 2020 C heck DVT study for resolution of clot in the R leg June 15, 2019 H e had MTS eval negative on CT venogram. Has B/L insufficiency noted, recommend compression stockings. No acute DVT noted and should be safe to wear stockings. On Eliquis. H ad DVT study done and reflux. WIll obtain CT venogram to evaluate for MTS. May explain why his legs are swollen. 1 03/09/18Conclusions: 1 . Chronic DVT of the right lower extremity in the right femoral vein and right popliteal vein. 2 . Venous insufficiency of the left sapheno femoral junction. 3 . Significant venous insufficiency of the greater saphenous vein bilaterally. 4 . Significant venous insufficiency of the right femoral vein. 5 . Significant venous insufficiency of the popliteal vein bilaterally. 6 . Abnormal pulsitile venous flow seen bilaterally. NOT WEARING COMPRESSION STOCKINGS DUE TO BELOW KNEE PAD. J char 2020 c ontinues with eloquis 5 bid October 16, 2021 N o new bleeding on Eliquis January 01, 2022 1 DVT study C ONCLUSIONS: 1 . No evidence of a deep vein thrombosis of the lower extremities bilaterally. Gabby Ramsey MD Cardiology: hrombectomy of the proximal LAD, 99% thrombotic lesion with EXPort catheter thrombectomy, i ntravascular ultrasound followed by cutting balloon angioplasty with a 3.0 x 15 cutting balloon and s tenting of the proximal LAD with IVUS guidance after nitroglycerin with a 3 x 22 PinBridgeronik d rug-eluting stent. Remain on Eliquis and Plavix, not on ASA. No bleeding issues. January 01, 2022 S tress Test 12/14/21 C ONCLUSIONS: 1 . Normal sinus rhythm. 2 . Normal Regadenoson ECG with no ischemic ST or T changes. There is no ECG evidence of myocardial ischemia with v asodilator stress. 3 . Normal left ventricle size. 4 . Left Ventricular Ejection Fraction is 60 % TID: 1.15. 5 . Normal myocardial perfusion imaging with no evidence of ischemia or scar. Gabby Ramsey MD Cardiology:Added Nor vasc today for BP control. Reviewed RPM monitor B P today: 154/88 P rior BP: 150/76 (10/16/2021) Labs Reviewed: C reat: 0.64 (06/23/2019) C hol: 142 (06/23/2019) HDL: 52 (06/23/2019) His updated medication list for this problem includes: Norvasc 5 Mg Tablet (Amlodipine) ..... Take 1 tablet daily Hydrochlorothiazide 25 Mg Tablet (Hydrochlorothiazide) ..... Take 1 tablet by mouth every day Quinapril 20 Mg Tablet (Quinapril) ..... 1 tablet twice a day Metoprolol Succinate 25 Mg Tablet Extended Release 24 Hr (Metoprolol succinate) ..... 1 tablet once a day Gabby Ramsey MD Cardiology: Gypsy blanco had BALER of the LCIV. Has noted some benfit with additional use of compression stockings. I reviewed the venogram with him- it is not straight forward as to which branch of the LCIV to stent, and unclear if one is mi'kmaq and the other one is a collateral that may have developed due to his prior hx of DVT despite use of IVUS. February 29, 2020 p riya for cont'd conservative therapy September 10, 2020 continue with compression January 01, 2022 C ontinues with compression stokcings at present Gabby Ramsey MD Cardiology:Says that A1C was elevated. W ill check stress test, he had CAD and el Gabby Ramsey MD Cardiology: J anuary 2020 C heck DVT study for resolution of clot in the R leg June 15, 2019 Gypsy blanco had MTS eval negative on CT venogram. Has B/L insufficiency noted, recommend compression stockings. No acute DVT noted and should be safe to wear stockings. On Eliquis. H ad DVT study done and reflux. WIll obtain CT venogram to evaluate for MTS. May explain why his legs are swollen. 1 03/09/18Conclusions: 1 . Chronic DVT of the right lower extremity in the right femoral vein and right popliteal vein. 2 . Venous insufficiency of the left sapheno femoral junction. 3 . Significant venous insufficiency of the greater saphenous vein bilaterally. 4 . Significant venous insufficiency of the right femoral vein. 5 . Significant venous insufficiency of the popliteal vein bilaterally. 6 . Abnormal pulsitile venous flow seen bilaterally. NOT WEARING COMPRESSION STOCKINGS DUE TO BELOW KNEE PAD. J char 2020 c ontinues with eloquis 5 bid October 16, 2021 N o new bleeding on Eliquis Gabby Ramsey MD Cardiology: L > R . May be related to venous reflux or May Thurner syndrome. Check venous doppler. Conclusions: 1 . Chronic DVT of the right lower extremity in the right femoral vein and right popliteal vein. 2 . Venous insufficiency of the left sapheno femoral junction. 3 . Significant venous insufficiency of the greater saphenous vein bilaterally. 4 . Significant venous insufficiency of the right femoral vein. 5 . Significant venous insufficiency of the popliteal vein bilaterally. 6 . Abnormal pulsitile venous flow seen bilaterally. VENOUS DOPPLER REVIEWED. HE DOESN'T HAVE MUCH IN THE WAY OF ANY RIGHT HEART FAILURE. WILL OBTAIN VENOUS US WITH IVUS AND VENOGRAM. HE WILL NEED TO COME OFF OF ELIQUIS FOR 3 DAYS PRIOR TO THE PROCEDURE. April 17, 2021 2 020 Venogram IMPRESSION: 1 . Successful PTV of LCIV inferior branch increasing CSA by 100.4 mm2. This area was not stented as there was concern if this was a collateral formed post DVT or indeed if this is a full thickness LCIV. Additionally, CT Venogram did not demonstrate a bifurcating LCIV. RECOMMENDATIONS: 1 . Clinical follow up and continued use of compression stockings and anticoagulation. Gabby Ramsey MD Cardiology: P lavix alone. Not on ASA. Since he is taking Eliquis. Hx of DVT. Has completed 12 months of Plavix with Eliquis hrombectomy of the proximal LAD, 99% thrombotic lesion with EXPort catheter thrombectomy, i ntravascular ultrasound followed by cutting balloon angioplasty with a 3.0 x 15 cutting balloon and s tenting of the proximal LAD with IVUS guidance after nitroglycerin with a 3 x 22 Orsiro MSTronik d rug-eluting stent. Remain on Eliquis and Plavix, not on ASA. No bleeding issues. September 10, 2020 c ontinues on eloquis and plavix Gabby Ramsey MD Cardiology:New blood work with PCP H is updated medication list for this problem includes: Lipitor 80 Mg Tablet (Atorvastatin) ..... 1 tablet once a day C HOL: 142 (06/23/2019) HDL: 52 (06/23/2019) Gabby Ramsey MD Cardiology: L > R . May be related to venous reflux or May Thurner syndrome. Check venous doppler. Conclusions: 1 . Chronic DVT of the right lower extremity in the right femoral vein and right popliteal vein. 2 . Venous insufficiency of the left sapheno femoral junction. 3 . Significant venous insufficiency of the greater saphenous vein bilaterally. 4 . Significant venous insufficiency of the right femoral vein. 5 . Significant venous insufficiency of the popliteal vein bilaterally. 6 . Abnormal pulsitile venous flow seen bilaterally. VENOUS DOPPLER REVIEWED. HE DOESN'T HAVE MUCH IN THE WAY OF ANY RIGHT HEART FAILURE. WILL OBTAIN VENOUS US WITH IVUS AND VENOGRAM. HE WILL NEED TO COME OFF OF ELIQUIS FOR 3 DAYS PRIOR TO THE PROCEDURE. April 17, 2021 2 020 Venogram IMPRESSION: 1 . Successful PTV of LCIV inferior branch increasing CSA by 100.4 mm2. This area was not stented as there was concern if this was a collateral formed post DVT or indeed if this is a full thickness LCIV. Additionally, CT Venogram did not demonstrate a bifurcating LCIV. RECOMMENDATIONS: 1 . Clinical follow up and continued use of compression stockings and anticoagulation. Gabby Ramsey MD Cardiology: J zaina 2020 C heck DVT study for resolution of clot in the R leg June 15, 2019 H e had MTS eval negative on CT venogram. Has B/L insufficiency noted, recommend compression stockings. No acute DVT noted and should be safe to wear stockings. On Eliquis. H ad DVT study done and reflux. WIll obtain CT venogram to evaluate for MTS. May explain why his legs are swollen. 1 03/09/18Conclusions: 1 . Chronic DVT of the right lower extremity in the right femoral vein and right popliteal vein. 2 . Venous insufficiency of the left sapheno femoral junction. 3 . Significant venous insufficiency of the greater saphenous vein bilaterally. 4 . Significant venous insufficiency of the right femoral vein. 5 . Significant venous insufficiency of the popliteal vein bilaterally. 6 . Abnormal pulsitile venous flow seen bilaterally. NOT WEARING COMPRESSION STOCKINGS DUE TO BELOW KNEE PAD. J char 2020 c ontinues with eloquis 5 bid Gabby Ramsey MD Cardiology: P lavix alone. Not on ASA. Since he is taking Eliquis. Hx of DVT. Has completed 12 months of Plavix with Eliquis hrombectomy of the proximal LAD, 99% thrombotic lesion with EXPort catheter thrombectomy, i ntravascular ultrasound followed by cutting balloon angioplasty with a 3.0 x 15 cutting balloon and s tenting of the proximal LAD with IVUS guidance after nitroglycerin with a 3 x 22 Orsiro Biotronik d rug-eluting stent. Remain on Eliquis and Plavix, not on ASA. No bleeding issues. September 10, 2020 c ontinues on eloquis and plavix Gabby Ramsey MD Cardiology: P ost revasc DEVIN 07/2019: 1 . Normal arterial flow of the lower extremities above the level of the knee bilaterally. Mild diffuse atherosclerosis b ilaterally. 2 . There is normal flow in right HARMONY and left BALER. 3 . There is moderate to possible severe disease of the right BALER and left HARMONY. 4 . Unable to compress arteries to obtain DEVIN values. At present, will continue to observe. Have him ambulate. See if numbness in the leg improves gradually over time. If no significant improvement, will offer Laser BALER of the Left PER and BARRERA. Gabby Ramsey MD Cardiology: Gypsy blanco had BALER of the LCIV. Has noted some benfit with additional use of compression stockings. I reviewed the venogram with him- it is not straight forward as to which branch of the LCIV to stent, and unclear if one is mi'kmaq and the other one is a collateral that may have developed due to his prior hx of DVT despite use of IVUS. February 29, 2020 p riya for cont'd conservative therapy September 10, 2020 continue with compression Gabby Ramsey MD Cardiology:Reviewed with him his BP. most likely better controlled at home H is updated medication list for this problem includes: Hydrochlorothiazide 25 Mg Tablet (Hydrochlorothiazide) ..... Take 1 tablet by mouth once a day Quinapril 20 Mg Tablet (Quinapril) ..... 1 tablet twice a day Metoprolol Succinate 25 Mg Tablet Extended Release 24 Hr (Metoprolol succinate) ..... 1 tablet once a day BP today: 146/80 P rior BP: 148/70 (09/10/2020) Labs Reviewed: C reat: 0.64 (06/23/2019) C hol: 142 (06/23/2019) HDL: 52 (06/23/2019) Gabby Ramsey MD Cardiology: H is updated medication list for this problem includes: Lipitor 80 Mg Tablet (Atorvastatin) ..... 1 tablet once a day Gabby Ramsey MD Electrophysiology: J zaina 2020 C heck DVT study for resolution of clot in the R leg June 15, 2019 Gypsy blanco had MTS eval negative on CT venogram. Has B/L insufficiency noted, recommend compression stockings. No acute DVT noted and should be safe to wear stockings. On Eliquis. H ad DVT study done and reflux. WIll obtain CT venogram to evaluate for MTS. May explain why his legs are swollen. 1 03/09/18Conclusions: 1 . Chronic DVT of the right lower extremity in the right femoral vein and right popliteal vein. 2 . Venous insufficiency of the left sapheno femoral junction. 3 . Significant venous insufficiency of the greater saphenous vein bilaterally. 4 . Significant venous insufficiency of the right femoral vein. 5 . Significant venous insufficiency of the popliteal vein bilaterally. 6 . Abnormal pulsitile venous flow seen bilaterally. NOT WEARING COMPRESSION STOCKINGS DUE TO BELOW KNEE PAD. Ijeoma baumanny 2020 c ontinues with eloquis 5 bid Gabby Ramsey MD Electrophysiology: P lavix alone. Not on ASA. Since he is taking Eliquis. Hx of DVT. Has completed 12 months of Plavix with Eliquis hrombectomy of the proximal LAD, 99% thrombotic lesion with EXPort catheter thrombectomy, i ntravascular ultrasound followed by cutting balloon angioplasty with a 3.0 x 15 cutting balloon and s tenting of the proximal LAD with IVUS guidance after nitroglycerin with a 3 x 22 PinBridgeronik d rug-eluting stent. Remain on Eliquis and Plavix, not on ASA. No bleeding issues. September 10, 2020 c ontinues on eloquis and plavix Gabby Ramsey MD Electrophysiology: Gypsy blanco had BALER of the LCIV. Has noted some benfit with additional use of compression stockings. I reviewed the venogram with him- it is not straight forward as to which branch of the LCIV to stent, and unclear if one is mi'kmaq and the other one is a collateral that may have developed due to his prior hx of DVT despite use of IVUS. February 29, 2020 p riya for cont'd conservative therapy September 10, 2020 continue with compression Gabby Ramsey MD Electrophysiology: B P today: 148/70 P rior BP: 148/70 (02/29/2020) Labs Reviewed: C reat: 0.64 (06/23/2019) C hol: 142 (06/23/2019) HDL: 52 (06/23/2019) September 10, 2020 i ncrease HCTZ to 25 mg daily Gabby Ramsey MD Cardiology: H is updated medication list for this problem includes: Jardiance 10 Mg Oral Tablet (Empagliflozin) ..... Tk 1 t po qd Metformin Hcl 1000 Mg Oral Tablet (Metformin hcl) ..... One tab twice daily Humalog Mix 75/25 Kwikpen (75-25) 100 Unit/ml Sc Supn (Insulin lispro prot & lispro) ..... Inject 40 units under the skin bid Quinapril Hcl 20 Mg Oral Tablet (Quinapril hcl) ..... One tab twice daily Bydureon 2 Mg Subcutaneous Pen-injector (Exenatide) ..... As directed Gabby Ramsey MD Cardiology: hrombectomy of the proximal LAD, 99% thrombotic lesion with EXPort catheter thrombectomy, i ntravascular ultrasound followed by cutting balloon angioplasty with a 3.0 x 15 cutting balloon and s tenting of the proximal LAD with IVUS guidance after nitroglycerin with a 3 x 22 Orsiro Biotronik d rug-eluting stent. Remain on Eliquis and Plavix, not on ASA. No bleeding issues. Gabby Ramsey MD Cardiology: P lavix alone. Not on ASA. Since he is taking Eliquis. Hx of DVT. Has completed 12 months of Plavix with Eliquis hrombectomy of the proximal LAD, 99% thrombotic lesion with EXPort catheter thrombectomy, i ntravascular ultrasound followed by cutting balloon angioplasty with a 3.0 x 15 cutting balloon and s tenting of the proximal LAD with IVUS guidance after nitroglycerin with a 3 x 22 Orsiro Biotronik d rug-eluting stent. Remain on Eliquis and Plavix, not on ASA. No bleeding issues. Gabby Ramsey MD Cardiology: Gypsy blanco had BALER of the LCIV. Has noted some benfit with additional use of compression stockings. I reviewed the venogram with him- it is not straight forward as to which branch of the LCIV to stent, and unclear if one is mi'kmaq and the other one is a collateral that may have developed due to his prior hx of DVT despite use of IVUS. February 29, 2020 p riya for cont'd conservative therapy Gabby Ramsey MD Cardiology:February C heck DVT study for resolution of clot in the R leg June 15, 2019 H francis had MTS eval negative on CT venogram. Has B/L insufficiency noted, recommend compression stockings. No acute DVT noted and should be safe to wear stockings. On Eliquis. H ad DVT study done and reflux. WIll obtain CT venogram to evaluate for MTS. May explain why his legs are swollen. 1 03/09/18Conclusions: 1 . Chronic DVT of the right lower extremity in the right femoral vein and right popliteal vein. 2 . Venous insufficiency of the left sapheno femoral junction. 3 . Significant venous insufficiency of the greater saphenous vein bilaterally. 4 . Significant venous insufficiency of the right femoral vein. 5 . Significant venous insufficiency of the popliteal vein bilaterally. 6 . Abnormal pulsitile venous flow seen bilaterally. NOT WEARING COMPRESSION STOCKINGS DUE TO BELOW KNEE PAD. Gabby Ramsey MD Cardiology: B P today: 153/84 P rior BP: 150/80 (09/21/2019) Labs Reviewed: C reat: 0.64 (06/23/2019) C hol: 142 (06/23/2019) HDL: 52 (06/23/2019) His updated medication list for this problem includes: Hydrochlorothiazide 12.5 Mg Oral Capsule (Hydrochlorothiazide) ..... One tab. daily Quinapril Hcl 20 Mg Oral Tablet (Quinapril hcl) ..... One tab twice daily Metoprolol Succinate Er 25 Mg Oral Tablet Extended Release 24 Hour (Metoprolol succinate) ..... One tab daily Gabby Ramsey MD Cardiology: H is updated medication list for this problem includes: Jardiance 10 Mg Oral Tablet (Empagliflozin) ..... Tk 1 t po qd Metformin Hcl 1000 Mg Oral Tablet (Metformin hcl) ..... One tab twice daily Humalog Mix 75/25 Kwikpen (75-25) 100 Unit/ml Sc Supn (Insulin lispro prot & lispro) ..... Inject 40 units under the skin bid Quinapril Hcl 20 Mg Oral Tablet (Quinapril hcl) ..... One tab twice daily Bydureon 2 Mg Subcutaneous Pen-injector (Exenatide) ..... As directed Labs Reviewed: C reat: 0.64 (06/23/2019) Gabby Ramsey MD Cardiology: hrombectomy of the proximal LAD, 99% thrombotic lesion with EXPort catheter thrombectomy, i ntravascular ultrasound followed by cutting balloon angioplasty with a 3.0 x 15 cutting balloon and s tenting of the proximal LAD with IVUS guidance after nitroglycerin with a 3 x 22 Orsiro Biotronik d rug-eluting stent. Remain on Eliquis and Plavix, not on ASA. No bleeding issues. Gabby Ramsey MD Cardiology:He had PT A of the LCIV. Has noted some benfit with additional use of compression stockings. I reviewed the venogram with him- it is not straight forward as to which branch of the LCIV to stent, and unclear if one is mi'kmaq and the other one is a collateral that may have developed due to his prior hx of DVT despite use of IVUS. Gabby Ramsey MD Cardiology: P lavix alone. Not on ASA. Since he is taking Eliquis. Hx of DVT. Has completed 12 months of Plavix with Eliquis hrombectomy of the proximal LAD, 99% thrombotic lesion with EXPort catheter thrombectomy, i ntravascular ultrasound followed by cutting balloon angioplasty with a 3.0 x 15 cutting balloon and s tenting of the proximal LAD with IVUS guidance after nitroglycerin with a 3 x 22 Orsiro Biotronik d rug-eluting stent. Remain on Eliquis and Plavix, not on ASA. No bleeding issues. Gabby Ramsey MD Cardiology: A pril 2019 H e had MTS eval negative on CT venogram. Has B/L insufficiency noted, recommend compression stockings. No acute DVT noted and should be safe to wear stockings. On Eliquis. H ad DVT study done and reflux. WIll obtain CT venogram to evaluate for MTS. May explain why his legs are swollen. 1 03/09/18Conclusions: 1 . Chronic DVT of the right lower extremity in the right femoral vein and right popliteal vein. 2 . Venous insufficiency of the left sapheno femoral junction. 3 . Significant venous insufficiency of the greater saphenous vein bilaterally. 4 . Significant venous insufficiency of the right femoral vein. 5 . Significant venous insufficiency of the popliteal vein bilaterally. 6 . Abnormal pulsitile venous flow seen bilaterally. NOT WEARING COMPRESSION STOCKINGS DUE TO BELOW KNEE PAD. Gabby Ramsey MD Cardiology: P lavix alone. Not on ASA. Since he is taking Eliquis. Hx of DVT. Gabby Ramsey MD Cardiology: h rombectomy of the proximal LAD, 99% thrombotic lesion with EXPort catheter thrombectomy, i ntravascular ultrasound followed by cutting balloon angioplasty with a 3.0 x 15 cutting balloon and s tenting of the proximal LAD with IVUS guidance after nitroglycerin with a 3 x 22 PinBridgeronik d rug-eluting stent. Remain on Eliquis and Plavix, not on ASA. No bleeding issues. Gabby Ramsey MD Cardiology:L > R . M ay be related to venous reflux or May Thurner syndrome. Check venous doppler. Conclusions: 1 . Chronic DVT of the right lower extremity in the right femoral vein and right popliteal vein. 2 . Venous insufficiency of the left sapheno femoral junction. 3 . Significant venous insufficiency of the greater saphenous vein bilaterally. 4 . Significant venous insufficiency of the right femoral vein. 5 . Significant venous insufficiency of the popliteal vein bilaterally. 6 . Abnormal pulsitile venous flow seen bilaterally. VENOUS DOPPLER REVIEWED. HE DOESN'T HAVE MUCH IN THE WAY OF ANY RIGHT HEART FAILURE. WILL OBTAIN VENOUS US WITH IVUS AND VENOGRAM. HE WILL NEED TO COME OFF OF ELIQUIS FOR 3 DAYS PRIOR TO THE PROCEDURE. Gabby Ramsey MD Cardiology:[facility] DEVIN 07/2019: 1 . Normal arterial flow of the lower extremities above the level of the knee bilaterally. Mild diffuse atherosclerosis b ilaterally. 2 . There is normal flow in right HARMONY and left BALER. 3 . There is moderate to possible severe disease of the right BALER and left HARMONY. 4 . Unable to compress arteries to obtain DEVIN values. At present, will continue to observe. Have him ambulate. See if numbness in the leg improves gradually over time. If no significant improvement, will offer Laser BALER of the Left PER and BARRERA. Gabby Ramsey MD Cardiology: B P today: 150/80 P rior BP: 132/82 (07/27/2019) Labs Reviewed: C reat: 0.64 (06/23/2019) C hol: 142 (06/23/2019) HDL: 52 (06/23/2019) Gabby Ramsey MD Cardiology: h rombectomy of the proximal LAD, 99% thrombotic lesion with EXPort catheter thrombectomy, i ntravascular ultrasound followed by cutting balloon angioplasty with a 3.0 x 15 cutting balloon and s tenting of the proximal LAD with IVUS guidance after nitroglycerin with a 3 x 22 Caliopa d rug-eluting stent. Remain on Eliquis and Plavix, not on ASA. No bleeding issues. Gabby Ramesy MD Cardiology: H is updated medication list for this problem includes: Lipitor 80 Mg Oral Tablet (Atorvastatin calcium) ..... One tab. daily Gabby Ramsey MD Cardiology: P lavix alone. Not on ASA. Since he is taking Eliquis. Gabby Ramsey MD Cardiology: A pril 2019 H e had MTS eval negative on CT venogram. Has B/L insufficiency noted, recommend compression stockings. No acute DVT noted and should be safe to wear stockings. On Eliquis. H ad DVT study done and reflux. WIll obtain CT venogram to evaluate for MTS. May explain why his legs are swollen. 1 03/09/18Conclusions: 1 . Chronic DVT of the right lower extremity in the right femoral vein and right popliteal vein. 2 . Venous insufficiency of the left sapheno femoral junction. 3 . Significant venous insufficiency of the greater saphenous vein bilaterally. 4 . Significant venous insufficiency of the right femoral vein. 5 . Significant venous insufficiency of the popliteal vein bilaterally. 6 . Abnormal pulsitile venous flow seen bilaterally. Gabby Ramsey MD Cardiology: I dentify with CT venogram for MTS since he is on eliquis, will defer doing IVUS venogram at present however if CT abnml, will need to schedule for invasive procedure. J [facility] 2019 0 04/04/[address] venogram Normal CT venogram with no evidence of pelvic DVT or May-Thurner syndrome. Gabby Ramsey MD Cardiology: may need the L tibials to be opened. Sensilase was abnormal with inadequate LLE and adequate RLE. On Plavix and Eliquis. H is updated medication list for this problem includes: Clopidogrel Bisulfate 75 Mg Oral Tablet (Clopidogrel bisulfate) ..... One tab daily Gabby Ramsey MD Cardiology: h rombectomy of the proximal LAD, 99% thrombotic lesion with EXPort catheter thrombectomy, i ntravascular ultrasound followed by cutting balloon angioplasty with a 3.0 x 15 cutting balloon and s tenting of the proximal LAD with IVUS guidance after nitroglycerin with a 3 x 22 Caliopa d rug-eluting stent. Remain on Eliquis and Plavix, not on ASA. No bleeding issues. Gabby Ramsey MD Cardiology:June 15, 2019 H e had MTS eval negative on CT venogram. Has B/L insufficiency noted, recommend compression stockings. No acute DVT noted and should be safe to wear stockings. On Eliquis. H ad DVT study done and reflux. WIll obtain CT venogram to evaluate for MTS. May explain why his legs are swollen. 1 03/09/18Conclusions: 1 . Chronic DVT of the right lower extremity in the right femoral vein and right popliteal vein. 2 . Venous insufficiency of the left sapheno femoral junction. 3 . Significant venous insufficiency of the greater saphenous vein bilaterally. 4 . Significant venous insufficiency of the right femoral vein. 5 . Significant venous insufficiency of the popliteal vein bilaterally. 6 . Abnormal pulsitile venous flow seen bilaterally. Gabby Ramsey MD Cardiology: P lavix alone. Not on ASA. Since he is taking Eliquis. Gabby Ramsey MD Cardiology:check carotids and ec ho Gabby Ramsey MD Cardiology: h rombectomy of the proximal LAD, 99% thrombotic lesion with EXPort catheter thrombectomy, i ntravascular ultrasound followed by cutting balloon angioplasty with a 3.0 x 15 cutting balloon and s tenting of the proximal LAD with IVUS guidance after nitroglycerin with a 3 x 22 Orsiro Biotronik d rug-eluting stent. Remain on Eliquis and Plavix, not on ASA. Gabby Ramsey MD Cardiology: H is updated medication list for this problem includes: Jardiance 10 Mg Oral Tablet (Empagliflozin) ..... Tk 1 t po qd Metformin Hcl 1000 Mg Oral Tablet (Metformin hcl) ..... One tab twice daily Humalog Mix 75/25 Kwikpen (75-25) 100 Unit/ml Sc Supn (Insulin lispro prot & lispro) ..... Inject 40 units under the skin bid Quinapril Hcl 20 Mg Oral Tablet (Quinapril hcl) ..... One tab twice daily Bydureon 2 Mg Subcutaneous Pen-injector (Exenatide) ..... As directed Gabby Ramsey MD Cardiology: P lavix alone. Not on ASA. Gabby Ramsey MD Cardiology: O n Eliquis. H ad DVT study done and reflux. WIll obtain CT venogram to evaluate for MTS. May explain why his legs are swollen. 1 03/09/18Conclusions: 1 . Chronic DVT of the right lower extremity in the right femoral vein and right popliteal vein. 2 . Venous insufficiency of the left sapheno femoral junction. 3 . Significant venous insufficiency of the greater saphenous vein bilaterally. 4 . Significant venous insufficiency of the right femoral vein. 5 . Significant venous insufficiency of the popliteal vein bilaterally. 6 . Abnormal pulsitile venous flow seen bilaterally. Gabby Ramsey MD Cardiology:Identify with CT venogram for MTS since he is on eliquis, will defer doing IVUS venogram at present however if CT abnml, will need to schedule for invasive procedure. Gabby Ramsey MD Cardiology:L > R . M ay be related to venous reflux or May Thurner syndrome. Check venous doppler. Gabby Ramsey MD Cardiology: H is updated medication list for this problem includes: Lipitor 80 Mg Oral Tablet (Atorvastatin calcium) ..... One tab. daily L DL: 50 (11/06/2018) Gabby Ramsey MD Cardiology:Plavix alone. Not on ASA. Gabby Ramsey MD Cardiology:On Eliquis. Gabby Ramsey MD Cardiology:hrombecto my of the proximal LAD, 99% thrombotic lesion with EXPort catheter thrombectomy, i ntravascular ultrasound followed by cutting balloon angioplasty with a 3.0 x 15 cutting balloon and s tenting of the proximal LAD with IVUS guidance after nitroglycerin with a 3 x 22 Entegrionk d rug-eluting stent. Remain on Eliquis and Plavix, not on ASA. Gabby Ramsey MD Date Name Monitor - Telemetry (Mobile Cardiac) Arterial Duplex Bi-L ower EX Complete Echo HEMOGLOBIN A1c PROBNP, N TERMINAL CRP, high sensitivit y Lipoprotein (a) LIPID PANEL COMPREHENSIVE METABO LIC PANEL, W/EGFR EKG RPM (remote patient monitoring) RPM (remote patient monitoring) Stress Regadenoson Venous Doppler Bilat eral LE Complete Echo Venous Doppler Unila teral RLE CT Venogram Abd,Pelv is, Lower Extremities PROTHROMBIN TIME WIT H INR LIPID PANEL CBC (INCLUDES DIFF/P LT) BASIC METABOLIC PANE L W/EGFR Venogram w/ IVUS - S [facility] Arterial Duplex Bi-L ower EX PROTHROMBIN TIME WIT H INR LIPID PANEL CBC (INCLUDES DIFF/P LT) BASIC METABOLIC PANE L W/EGFR Arterial Duplex Bi-L ower EX B TYPE NATRIURETIC P EPTIDE (BNP) CBC (H/H, RBC, INDIC ES, WBC, PLT) HEMOGLOBIN A1c LIPID PANEL COMPREHENSIVE METABO LIC PANEL, W/EGFR CT Venogram Abd,Pelv is, Lower Extremities Carotid Duplex Bilat eral Complete Echo HEMOGLOBIN A1c LIPID PANEL COMPREHENSIVE METABO LIC PANEL, W/EGFR Venous Doppler Bilat eral LE - Reflux Preop clearance, phn /internet/emr >5min HISTORY OF PROCEDURES Procedure Date Procedure Name Provider Procedure Notes S tatus Complex e/m visit add on Gabby Ramsey MD completed EKG Gabby Ramsey MD compl eted EKG Gabby Ramsey MD compl eted EKG Gabby Ramsey MD compl eted EKG Gabby Ramsey MD compl eted EKG Gabby Ramsey MD compl eted EKG Gabby Ramsey MD compl eted EKG Gabby Ramsey MD compl eted EKG Gabby Ramsey MD compl eted EKG Gabby Ramsey MD compl eted EKG Gabby Ramsey MD compl eted EKG Gabby Ramsey MD compl eted EKG Gabby Ramsey MD compl eted EKOleksandr Ramsey MD compl eted EKG Gabby Ramsey MD compl eted EKG Gabby Ramsey MD compl eted EKG Gabby Ramsey MD compl eted
--- OUTSIDE RECORDS SUMMARY | 2024-07-02 00:57 | XMS_ITS | Data Portability ---
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 Lab PSA, serum or plasma 023 10/19/19 23 [email or web address] [facility], 2022 V[address], [address], [place], [address], 4 18:14:28 HbA1c (hemoglo bin A1c), blood 023 10/19/19 23 [email or web address] [facility], 2022 [address], [address], [place], [address], 4 18:14:29 albumin/ creatini ne, mass ratio, urine 023 10/19/19 23 [email or web address] [facility], 2022 Vish[address], [address], [place], [address], 4 18:14:29 CBC w/ auto diff 023 10/19/19 23 [email or web address] [facility], 2022 Vish[address], [address], [place], [address], 4 18:14:28 lipid panel, serum 023 10/19/[address], 2022 Vishal Altamirano, [address], [place], [address], 4 18:14:28 CMP, serum or plasma 023 10/19/[address], 2022 Vishal Altamirano, [address], [place], [address], 4 18:14:29 HbA1c (hemoglo bin A1c), blood 023 05/27/19 23 [facility], 2022 Vishal Altam[address]ano, [address], [place], [address], 3 03:14:21 CMP, serum or plasma 023 05/27/19 23 [facility], 2022 Vishal Altam[address]ano, [address], [place], [address], 3 03:14:22 lipid panel, serum 023 05/27/19 23 [facility], 2022 Vishal [address]ano, [address], [place], [address], 3 03:14:21 CBC w/ auto diff 023 05/27/19 23 [facility], 2022 Vishal [address], [address], [place], [address], 3 03:14:21 Referral None recorded . Procedures None recorded . Surgeries None recorded . Imaging None recorded . Medication Orders None recorded . Patient TargetsNo targets recorded. Patient InstructionsNo instructions recorded. Reason for Referral None Reported. Results Created Date Observation Date Name Description Value Unit Range Abnormal Flag Note LastModifiedBy Organization Detail LastModifiedTime 06/12/19 22 06/11/2021 MICRO ALBUM N RNDM W/CRE AT RATIO ur creat 384.65 mg/dL REFER ENCE RANGE NOT ESTAB LISHE D FOR RANDO M URINE CREAT ININE Not Available [facility] (Lab) [address] [place], [address], 06/11/2021 21:25:19 06/12/19 22 06/11/2021 MICRO ALBUM N RNDM W/CRE AT RATIO microalbumin , urine 28.4 mg/L 0.0-16 .6 high Not Available [facility] (Lab) [address] [place], [address], 06/11/2021 21:25:19 06/12/19 22 06/11/2021 MICRO ALBUM N RNDM W/CRE AT RATIO microalbumin /creatinine ratio 7 mcg/m g 0-29 THE AMERI CAN DIABE JEAN ASSOC IATIO N DEFIN ES ABNOR MALIT IES IN ALBUM IN EXCRE TION FOLLO WS: CATEG ORY RESUL T (MCG/ MG CREAT ININE ) RAPHAEL L <30 MICRO ALBUM INURI A 30-29 9 CLINI [facility] ALBUM INURI A > OR = 300 THE ADA RECOM MENDS THAT 2 OF 2 SPECI MENS COLLE CTED WITHI N A 3- TO 6-MON TH PERIO D BE ABNOR MAL BEFOR E CONSI AGATHA G A PATIE NT TO HAVE CROSS ED ONE OF THESE DIAGN OSTIC THRES HOLDS . REFER ENCE: DIABE JEAN CARE, VOL. 26: S94-S 96, 2002 Not Available [facility] (Lab) [address] [place], [address], 06/11/2021 21:25:19 06/12/19 22 06/11/2021 PSA SCREE N PSA medicare screen 1.88 NG/mL 0.00-4 .00 Not Available [facility] (Lab) [address] [place], [address], 06/11/2021 18:40:37 06/12/19 22 06/11/2021 LIPAS E SERUM lipase 50 U/L 23-300 Not Available [facility] (Lab) [address] [place], [address], 06/11/2021 18:09:55 06/12/19 22 06/11/2021 COMPR EHENS CRISTO METAB OLIC PANEL sodium 139 mmol/ L 137-14 5 Not Available [facility] (Lab) [address] [place], [address], 06/11/2021 18:09:50 06/12/19 22 06/11/2021 COMPR EHENS CRISTO METAB OLIC PANEL potassium 4.1 mmol/ L 3.5-5. 1 Not Available [facility] (Lab) [address] [place], [address], 06/11/2021 18:09:50 06/12/19 22 06/11/2021 COMPR EHENS CRISTO METAB OLIC PANEL chloride 103 mmol/ L 98-107 Not Available [facility] (Lab) [address] [place], [address], 06/11/2021 18:09:50 06/12/19 22 06/11/2021 COMPR EHENS CRISTO METAB OLIC PANEL carbon dioxide 27 mmol/ L 22-30 Not Available [facility] (Lab) [address] [place], [address], 06/11/2021 18:09:50 06/12/19 22 06/11/2021 COMPR EHENS CRISTO METAB OLIC PANEL anion gap 13.1 mmol/ L 14-22 low Not Available [facility] (Lab) [address] [place], [address], 06/11/2021 18:09:50 06/12/19 22 06/11/2021 COMPR EHENS CRISTO METAB OLIC PANEL glucose 91 mg/dL 70-99 Not Available [facility] (Lab) [address] [place], [address], 06/11/2021 18:09:50 04/21/20 22 06/11/2021 COMPR EHENS CRISTO METAB OLIC PANEL BUN 22 mg/dL 8-19 high Not Available [facility] (Lab) [address] [place], [address], 06/11/2021 18:09:50 06/12/19 22 06/11/2021 COMPR EHENS CRISTO METAB OLIC PANEL creatinine 0.65 mg/dL 0.66-1 .25 low Not Available [facility] (Lab) [address] [place], [address], 06/11/2021 18:09:50 06/12/19 22 06/11/2021 COMPR EHENS CRISTO METAB OLIC PANEL GFR >60 Refer ence Range : [place] ge GFR Healt hy Adult : >60 mL/mi n/1.7 3 m2 Chron ic Kidne y Disea se: 15-60 mL/mi n/1.7 3 m2 Kidne y Failu re: <15/m L/min /1.73 m2 www.n iddk. nih.g ov The MDRD study equat ion has not been valid ated in child kandice <18 years of age; pregn ant women ; the elder ly >85 years of age; or in some racia l or ethni c subgr oups, such as or nics. Outsi de the valid ated trixie eters , estim ated GFR is less accur ate, requi ring clini becka judgm ent on a case- by-ca se basis . Clini becka inter preta tion for other races and ages must be made by the clini renetta. The MDRD study equat ion has not been valid ated for the evalu ation of serum creat inine relat ed to nutri gus l statu s or medic ation usage . For perso ns <18 years of age, a pedia tric GFR calcu lator is avail able on the [facility] websi te: https ://john soto.heather chin.o rg/pr ofess ional s/kdo qi/gf r_cal culat or Not Available [facility] (Lab) [address] [place], [address], 06/11/2021 18:09:50 06/12/19 22 06/11/2021 COMPR EHENS CRISTO METAB OLIC PANEL alkaline phosphatase 63 U/L 38-126 Not Available [facility] (Lab) [address] [place], [address], 06/11/2021 18:09:50 06/12/19 22 06/11/2021 COMPR EHENS CRISTO METAB OLIC PANEL alanine aminotransfe rase 14 U/L 0-50 Not Available [facility] (Lab) [address] [place], [address], 06/11/2021 18:09:50 06/12/19 22 06/11/2021 COMPR EHENS CRISTO METAB OLIC PANEL aspartate aminotransfe rase 20 U/L 15-46 Not Available [facility] (Lab) [address] [place], [address], 06/11/2021 18:09:50 06/12/19 22 06/11/2021 COMPR EHENS CRISTO METAB OLIC PANEL bilirubin, total 0.20 mg/dL 0.20-1 .30 Not Available [facility] (Lab) [address] [place], [address], 06/11/2021 18:09:50 06/12/19 22 06/11/2021 COMPR EHENS CRISTO METAB OLIC PANEL calcium 9.7 mg/dL 8.4-10 .2 Not Available [facility] (Lab) [address] [place], [address], 06/11/2021 18:09:50 06/12/19 22 06/11/2021 COMPR EHENS CRISTO METAB OLIC PANEL total protein 7.1 g/dL 6.3-8. 2 Not Available [facility] (Lab) [address] [place], [address], 06/11/2021 18:09:50 06/12/19 22 06/11/2021 COMPR EHENS CRISTO METAB OLIC PANEL albumin 4.0 g/dL 3.4-5. 0 Not Available [facility] (Lab) [address] [place], [address], 06/11/2021 18:09:50 06/12/19 22 06/11/2021 COMPR EHENS CRISTO METAB OLIC PANEL globulin 3.1 g/dL 2.6-4. 2 Not Available [facility] (Lab) [address] [place], [address], 06/11/2021 18:09:50 06/12/19 22 06/11/2021 COMPR EHENS CRISTO METAB OLIC PANEL A/G ratio 1.3 ratio 1.0-2. 0 Not Available [facility] (Lab) [address] [place], [address], 06/11/2021 18:09:50 06/12/19 22 06/11/2021 LIPID PANEL cholesterol 157 mg/dL 140-19 9 NIH KYLAH NSUS RECOM MENDA TION FOR ERI STERO L: ADULT CHILD LOW RISK: <200 <170 BORDE RLINE : <200- 239 ----- HIGH RISK: >240 >200 Not Available [facility] (Lab) [address] [place], [address], 06/11/2021 18:09:43 06/12/19 22 06/11/2021 LIPID PANEL triglyceride s 68 mg/dL 0-150 NIH KYLAH NSUS REPOR T RECOM MENDA TION FOR TRIGL YCERI FREDDY: ADULT CHILD LOW RISK: <150 ----- BODER LINE: 150-1 99 ----- HIGH RISK: >200 ----- Not Available [facility] (Lab) [address] [place], [address], 06/11/2021 18:09:43 06/12/19 22 06/11/2021 LIPID PANEL HDL cholesterol 54 mg/dL 40- Not Available [facility] (Lab) [address] [place], [address], 06/11/2021 18:09:43 06/12/19 22 06/11/2021 LIPID PANEL LDL cholesterol, calculated 89 mg/dL 0-130 NIH KYLAH NSUS REPOR T RECOM MENDA TIONS FOR LDL: ADULT CHILD LOW RISK <130 <110 (OPTI MAL LDL) <100 ----- BORDE RLINE : 130-1 59 ----- HIGH RISK: >160 >130 A TRIGL YCERI DE RESUL T >400 INVAL IDATE S THE CALCU LATIO N FOR LDL FRACT IONAT ION - THE LDL RESUL T WILL NOT BE REPOR DAVID. Not Available [facility] (Lab) [address] [place], [address], 06/11/2021 18:09:43 06/12/19 22 06/11/2021 CBC/C OMPLE TE BLD COUNT W/DIF F white blood cells 7.4 x10'3 /uL 4.2-10 .8 Not Available [facility] (Lab) [address] [place], [address], 06/11/2021 18:00:31 06/12/19 22 06/11/2021 CBC/C OMPLE TE BLD COUNT W/DIF F red blood cells 3.85 x10'6 /uL 4.10-5 .80 low Not Available [facility] (Lab) [address] [place], [address], 06/11/2021 18:00:31 06/12/19 22 06/11/2021 CBC/C OMPLE TE BLD COUNT W/DIF F hemoglobin 11.6 g/dL 13.2-1 7.0 low Not Available [facility] (Lab) [address] [place], [address], 06/11/2021 18:00:31 06/12/19 22 06/11/2021 CBC/C OMPLE TE BLD COUNT W/DIF F hematocrit 35.5 % 39.3-5 0.0 low Not Available [facility] (Lab) [address] [place], [address], 06/11/2021 18:00:31 06/12/19 22 06/11/2021 CBC/C OMPLE TE BLD COUNT W/DIF F mean red cell volume 92.2 fL 80.0-9 7.0 Not Available [facility] (Lab) [address] [place], [address], 06/11/2021 18:00:31 06/12/19 22 06/11/2021 CBC/C OMPLE TE BLD COUNT W/DIF F mean red cell hemoglobin 30.1 pg 27.0-3 3.0 Not Available [facility] (Lab) [address] [place], [address], 06/11/2021 18:00:31 06/12/19 22 06/11/2021 CBC/C OMPLE TE BLD COUNT W/DIF F mean RBC HGB concentratio n 32.7 g/dL 31.0-3 6.0 Not Available [facility] (Lab) [address] [place], [address], 06/11/2021 18:00:31 06/12/19 22 06/11/2021 CBC/C OMPLE TE BLD COUNT W/DIF F red cell distribution width 14.1 % 11.8-1 5.5 Not Available [facility] (Lab) [address] [place], [address], 06/11/2021 18:00:31 06/12/19 22 06/11/2021 CBC/C OMPLE TE BLD COUNT W/DIF F platelets 303 x10'3 /uL 150-40 0 Not Available [facility] (Lab) [address] [place], [address], 06/11/2021 18:00:31 06/12/19 22 06/11/2021 CBC/C OMPLE TE BLD COUNT W/DIF F mean platelet volume 10.0 fL 9.0-12 .4 Not Available [facility] (Lab) [address] [place], [address], 06/11/2021 18:00:31 06/12/19 22 06/11/2021 CBC/C OMPLE TE BLD COUNT W/DIF F neutrophils 47.9 % 39.0-7 2.0 Not Available [facility] (Lab) [address] [place], [address], 06/11/2021 18:00:31 06/12/19 22 06/11/2021 CBC/C OMPLE TE BLD COUNT W/DIF F lymphocytes 34.8 % 16.0-4 7.0 Not Available [facility] (Lab) [address] [place], [address], 06/11/2021 18:00:31 06/12/19 22 06/11/2021 CBC/C OMPLE TE BLD COUNT W/DIF F monocytes 12.4 % 5.0-12 .0 high Not Available [facility] (Lab) [address] [place], [address], 06/11/2021 18:00:31 06/12/19 22 06/11/2021 CBC/C OMPLE TE BLD COUNT W/DIF F eosinophils 3.9 % 1.0-7. 0 Not Available [facility] (Lab) [address] [place], [address], 06/11/2021 18:00:31 06/12/19 22 06/11/2021 CBC/C OMPLE TE BLD COUNT W/DIF F basophils 0.7 % 0.0-2. 0 Not Available [facility] (Lab) [address] [place], [address], 06/11/2021 18:00:31 06/12/19 22 06/11/2021 CBC/C OMPLE TE BLD COUNT W/DIF F immature granulocytes 0.3 % 0.00-0 .50 Not Available [facility] (Lab) [address] [place], [address], 06/11/2021 18:00:31 06/12/19 22 06/11/2021 CBC/C OMPLE TE BLD COUNT W/DIF F neutrophils, absolute count 3.57 x10'3 /uL 1.5-8. 0 Not Available [facility] (Lab) [address] [place], [address], 06/11/2021 18:00:31 06/12/19 22 06/11/2021 CBC/C OMPLE TE BLD COUNT W/DIF F lymphocytes, absolute count 2.59 x10'3 /uL 1.07-3 .43 Not Available [facility] (Lab) [address] [place], [address], 06/11/2021 18:00:31 06/12/19 22 06/11/2021 CBC/C OMPLE TE BLD COUNT W/DIF F monocytes, absolute count 0.92 x10'3 /uL 0.29-0 .99 Not Available [facility] (Lab) [address] [place], [address], 06/11/2021 18:00:31 06/12/19 22 06/11/2021 CBC/C OMPLE TE BLD COUNT W/DIF F eosinophils, absolute count 0.29 x10'3 /uL 0.02-0 .53 Not Available [facility] (Lab) [address] [place], [address], 06/11/2021 18:00:31 06/12/19 22 06/11/2021 CBC/C OMPLE TE BLD COUNT W/DIF F basophils, absolute count 0.05 x10'3 /uL 0.01-0 .08 Not Available [facility] (Lab) [address] [place], [address], 06/11/2021 18:00:31 06/12/19 22 06/11/2021 CBC/C OMPLE TE BLD COUNT W/DIF F immature granulocytes ,absolute 0.02 x10'3 /uL 0.00-0 .05 Not Available [facility] (Lab) [address] [place], [address], 06/11/2021 18:00:31 06/12/19 22 06/11/2021 CBC/C OMPLE TE BLD COUNT W/DIF F nucleated red blood cells 0.0 % -0 Not Available [facility] (Lab) [address] [place], [address], 06/11/2021 18:00:31 06/12/19 22 06/11/2021 CBC/C OMPLE TE BLD COUNT W/DIF F NRBC# 0.00 x10'3 /uL Not Available [facility] (Lab) [address] [place], [address], 06/11/2021 18:00:31 12/15/19 22 12/14/2021 NM, myoca rdial perfu ike scan No observ ation record ed. [id number] [facility] [address], [place], [address], 04/21/2022 05:08:19 12/15/19 22 12/14/2021 US, echo ardio gram No observ ation record ed. [id number] [facility] [address], [place], [address], 04/21/2022 05:08:19 12/15/19 22 12/14/2021 US, catarino denny s, lower extre mity No observ ation record ed. [id number] [facility] [address], [place], [address], 04/21/2022 05:08:19 11/09/19 24 11/09/2023 [facility] [address] [place] [address] Patien t Name: FAINA GATICA Access ion #: [id number] Sex: M : 1960 6 Dictat ed By: Lacey Anguiano Attend ing Physic zak: JENNIFER MCLAUGHLIN Orderi ng Physic zak: JENNIFER MCLAUGHLIN Exam Date: 2023 14:39 PM Exam Name: CT LOW DOSE CNCR SCREEN ING Admitt ing Diagno sis(es ): CT Chest withou t intrav enous contra st INDICA TION: tobacc o use TECHNI QUE: Multid etecto r spiral CT of the chest was perfor med from the lung apices to the upper abdome n. Axial, brown l and sagitt al multip lanar reform ats were perfor med. Radiat ion Dose : 1. Chest: CTDI volume is 3 mGy. Dose-l ength produc t is 120 mGy*cm The dose indica tors for CT are the volume Comput ed Tomogr aphy (CT) Dose Index (CTDIv ol) and the Dose Length Produc t (DLP), and are measur ed in units of mGy and mGy-cm , respec tively . These indica tors are not patien t dose, but values genera david from the CT scanne r acquis ition factor s. The report includ es radiat ion exposu re data for exposu res receiv ed during this examin ation. Compar james: None Findin gs: Lower neck: Normal thyroi d. Lungs: No focal consol idatio n. Right basila r subseg mental atelec tasis. Heart/ Vascul ar Struct ures: Cardio megaly . Brown ry artery calcif icatio ns. Vascul ar calcif icatio ns of the aorta. Lymph Nodes: No adenop athy Pleura : No pleura l effusi on or signif icant pneumo thorax . Page 1 [facility] Y [facility] [place] [address] [place] [address] Patien t Name: FAINA GATICA Access ion #: [id number] Sex: M : 1960 6 Dictat ed By: Lacey Anguiano Attend ing Physic zak: LYNETTE ROSARIO Orderi ng Physic zak: JENNIFER MCLAUGHLIN Exam Date: 2023 14:39 PM Exam Name: CT LOW DOSE CNCR SCREEN ING Admitt ing Diagno sis(es ): Muscul oskele jackson: No acute osseou s abnorm ality. Soft tissue s: Normal . Upper abdome n: Cholel ithias is. IMPRES IKE: No acute or suspic ious thorac ic findin g. LUNG RADS Catego ry 1: Contin ue annual screen ing with LDCT Radiat ion optimi zation : All CT scans at this facili ty use at least one of these dose optimi zation techni ques: automa david exposu re contro l mA and/or kV adjust ment per patien t size (inclu freddy target ed exams where dose is matche d to clinic al indica tion) or iterat cristo recons tructi on. Electr onical ly Signed by: Lacey Anguiano at 2023 16:01: 40 PM Page 2 [email or web address] [facility] (Imaging) [address] [place], [address], 11/09/2023 17:48:27 Result Notes None recorded. Problems Name Problem SNOMED Code Status Onset Date Resolution Date Notes Provider Name and Address Organization Details Recorded Time Renewal of prescript ion Active 2021 Not Available [facility] 3 04:55:02 Benign essential hypertens ion 9686548 Active Not Available [facility] 3 04:55:02 Abdominal pain 17143201 Active 2021 Not Available [facility] 3 04:55:02 Type 2 diabetes mellitus without complicat ion 852037307 Active Not Available [facility] 3 04:55:02 Obesity 192660271 Active Not Available [facility] 3 04:55:02 Coronary arteriosc lerosis 63907368 Active 2018 stent proximal LAD October 2018 Not Available [facility] 3 04:55:03 Essential hypertens ion 13552046 Active 2021 Not Available [facility] 3 04:55:03 Uncontrol led type 2 diabetes mellitus 972452970 Active 2022 Kamille [facility] [place] [facility] [employer] [facility] 3 14:04:14 Problem Notes None recorded. Procedures Surgical History Date Name Laterality Status Provider Name and Address Organization Details Recorded Time fluoroscopy guided percutaneous transluminal angioplasty of vein with contrast completed Not Available [facility] 04/21/2022 04:44:18 Cardiac Stent Placement completed Not Available [facility] 04/21/2022 04:44:18 Imaging Results Imaging Date Name Status LastModified by Organization Details LastModified Time 12/14/2021 NM, myocardial perfusion scan completed [id number] [facility] [address], [place], [address], 04/21/2022 05:08:19 12/14/2021 US, echocardiogram completed [id number] [facility] [address], [place], [address], 04/21/2022 05:08:19 12/14/2021 US, duplex, venous, lower extremity completed [id number] [facility] [address], [place], [address], 04/21/2022 05:08:19 11/09/2023 LDCT, chest, for lung cancer screening completed [address] (Imaging) [address] [place], [address], 11/09/2023 17:48:27 Procedure Notes None recorded. Medical Equipment None Reported. Allergies No known drug allergies Medications Name Sig Start Date Stop Date Status Note LastModified by Organization Details LastModified Time atorvasta tin 80 mg tablet TAKE 1 TABLET BY MOUTH EVERY DAY active Not Available Not Available No t Available atorvasta tin 20 mg tablet TAKE 1 TABLET BY MOUTH EVERY DAY 12/14 completed Not Available Not Available Not Available atorvasta tin 10 mg tablet TAKE 1 TABLET BY MOUTH EVERY DAY 12/09 completed Not Available Not Available Not Available lisinopri l 20 mg tablet TAKE 1 TABLET BY MOUTH TWICE A DAY 10/18 completed Not Available Not Available Not Available clopidogr el 75 mg tablet TAKE 1 TABLET BY MOUTH EVERY DAY active Not Available Not Available No t Available amlodipin e 5 mg tablet TAKE 1 TABLET BY MOUTH EVERY DAY active Not Available Not Available No t Available peg-elect rolyte solution 420 gram oral solution 03/25 completed Not Available Not Available Not Available glimepiri de 2 mg tablet 03/22 completed Not Available Not Available Not Available warfarin 6 mg tablet TAKE 2 TABLETS BY MOUTH EVERY DAY 01/25 completed Not Available Not Available Not Available metformin 1,000 mg tablet TAKE 1 TABLET BY MOUTH TWICE A DAY active Not Available Not Available No t Available warfarin 2 mg tablet 01/25 completed Not Available Not Available Not Available warfarin 5 mg tablet TAKE 2 TABLETS BY MOUTH DAILY 01/25 completed Not Available Not Available Not Available hydrochlo rothiazid e 12.5 mg capsule TAKE 1 CAPSULE BY MOUTH DAILY 10/08 completed Not Available Not Available Not Available quinapril 20 mg tablet TAKE 1 TABLET BY MOUTH TWICE DAILY 05/26 completed Not Available Not Available Not Available hydrochlo rothiazid e 25 mg tablet TAKE 1 TABLET BY MOUTH EVERY DAY active Not Available Not Available No t Available metoprolo l succinate ER 25 mg tablet,ex tended release 24 hr TAKE 1 TABLET BY MOUTH EVERY DAY active Not Available Not Available No t Available warfarin 1 mg tablet Take 1 tablet every day by oral route. active Not Available Not Available No t Available quinapril 20 mg-hydroc hlorothia zide 12.5 mg tablet TK 1 T PO QD 03/25 completed Not Available Not Available Not Available lisinopri l 40 mg tablet TAKE 1 TABLET BY MOUTH EVERY DAY active Not Available Not Available No t Available insulin lispro protamine -lispro 100 unit/mL (75-25) subcutane ous pen INJECT 40 UNITS UNDER THE SKIN TWICE DAILY 10/08 completed pt states never took lispro Not Available Not Available Not Available BD Ultra-Fin e Mini Pen Needle 31 gauge x 3/16 USE TO INJECT INSULIN EVERY DAY active Not Available Not Available No t Available BD Ultra-Fin e Short Pen Needle 31 gauge x 5/16 USE WITH INJECTIO NS ONCE DAILY active Not Available Not Available No t Available Humalog KwikPen (U-100) Insulin 100 unit/mL subcutane ous Inject 40 units twice a day by subcutan eous route for 30 days. 05/26 completed Not Available Not Available Not Available Accu-Chek FastClix Lancing Device active Not Available Not Available Not Available OneTouch Verio test strips USE TO TEST TWICE DAILY active Not Available Not Available No t Available Bydureon 2 mg subcutane ous extended release suspensio n INJECT 2MG 1 DOSE SUBCUTAN EOUSLY Q 7 DAYS 03/22 completed Not Available Not Available Not Available Eliquis 5 mg tablet TAKE 1 TABLET BY MOUTH TWICE A DAY active Not Available Not Available No t Available Eliquis 2.5 mg tablet TK 1 T PO BID 07/13 completed increase d to 5mg twice a day Not Available Not Available Not Available Victoza 3-Silvio 0.6 mg/0.1 mL (18 mg/3 mL) subcutane ous pen injector 11/20 completed Not Available Not Available Not Available Farxiga 5 mg tablet TAKE 1 TABLET BY MOUTH EVERY DAY 03/15 completed Not Available Not Available Not Available Bydureon 2 mg/0.65 mL subcutane ous pen injector INJECT THE CONTENTS OF 1 PEN UNDER THE SKIN EVERY WEEK 05/26 completed Not Available Not Available Not Available Jardiance 10 mg tablet TAKE 1 TABLET BY MOUTH EVERY DAY active Not Available Not Available No t Available Toujanieo SoloStar U-300 Insulin 300 unit/mL (1.5 mL) subcutane ous pen INJECT 30 UNITS UNDER THE SKIN ONCE DAILY active Not Available Not Available No t Available OneTouch Verio Flex Meter USE DIRECTED active Not Available Not Available No t Available Fiasp FlexTouch U-100 Insulin 100 unit/mL (3 mL) subcutane ous pen INJECT 40 UNITS INTO THE SKIN TWICE A DAY active Not Available Not Available No t Available Vitals Date Recorded Body mass index (BMI) Body height Oxygen saturation Oxygen saturation in Arterial blood by Pulse oximetry Heart rate Body temperature Body weight Systolic blood pressure Diastolic blood pressure Provider Name and Address Organization Details Last Updated DateTime 2 36.6 kg/m2 187.96 cm 96 % 96 % 88 /min 97.7 [degF] 666811. 83 g 136 mm[Hg] 62 mm[Hg] Not Available [facility] 3 04:51:28 Date Recorded Body mass index (BMI) Body height Heart rate Body temperature Body weight Systolic blood pressure Diastolic blood pressure Provider Name and Address Organization Details Last Updated DateTime 2 33.4 kg/m2 187.96 cm 89 /min 97.4 [degF] 313663. 02 g 132 mm[Hg] 74 mm[Hg] Not Available [facility] 3 04:51:28 Date Recorded Body mass index (BMI) Body height Heart rate Body temperature Body weight Systolic blood pressure Diastolic blood pressure Provider Name and Address Organization Details Last Updated DateTime 2 36.6 kg/m2 187.96 cm 78 /min 97.6 [degF] 169155. 83 g 124 mm[Hg] 70 mm[Hg] Not Available [facility] 3 04:51:29 Date Recorded Body height Body mass index (BMI) Body weight Body temperature Heart rate Systolic blood pressure Diastolic blood pressure Provider Name and Address Organization Details Last Updated DateTime 3 187.96 cm 38.9 kg/m2 385422. 49 g 97.9 [degF] 82 /min 116 mm[Hg] 70 mm[Hg] CYRIL Colon [facility] [employer] 3 15:37:51 Date Recorded Body height Body mass index (BMI) Body weight Body temperature Heart rate Systolic blood pressure Diastolic blood pressure Provider Name and Address Organization Details Last Updated DateTime 3 187.96 cm 40.4 kg/m2 991085. 6 g 98 [degF] 85 /min 114 mm[Hg] 70 mm[Hg] Kamille ashley RN [facility] [employer] [facility] 3 15:36:08 Social History Question Answer Notes LastModified by Organization Details LastModified Time Tobacco Smoking Status Former Smoker quit age 51 Not Available [facility] 04/21/2022 04:42:33 Do You Have An Advance Directive? No MIGRATION.0301 [id number] Information not available 04/21/2022 Do You Wear A Helmet When Biking? No Does Not Bike MIGRATION.0301 [id number] Information not available 04/21/2022 What Is Your Level Of Caffeine Consumption? Occasional MIGRATION.0301 [id number] Information not available 04/21/2022 How Much Tobacco Do You Chew? None MIGRATION.0301 [id number] Information not available 04/21/2022 In The 14 Days Before Symptom Onset, Have You Had Close Contact With A Laboratory-confi rmed COVID-19 While That Case Was Ill? No MIGRATION.0301 [id number] Information not available 04/21/2022 In The 14 Days Before Symptom Onset, Have You Had Close Contact With A Person Who Is Under Investigation For COVID-19 While That Person Was Ill? No MIGRATION.0301 [id number] Information not available 04/21/2022 What Type Of Diet Are You Following? REGULAR MIGRATION.0301 [id number] Information not available 04/21/2022 Which Illicit Or Recreational Drugs Have You Used? None MIGRATION.030 [id number] Information not available 04/21/2022 What Is The Highest Grade Or Level Of School You Have Completed Or The Highest Degree You Have Received? [id number] MIGRATION.030 [id number] Information not available 04/21/2022 Have There Been Any Changes To Your Family Or Social Situation? No MIGRATION.0301 [id number] Information not available 04/21/2022 What Is The Fluoride Status Of Your Home? Unknown MIGRATION.0301 186690 Information not available 04/21/2022 When Did You Quit Smoking? 6-10yearssincelastc igarette MIGRATION.0301 400999 Information not available 04/21/2022 Are There Any Guns Present In Your Home? No MIGRATION.0301 138568 Information not available 04/21/2022 Do You Use Insect Repellent Routinely? No MIGRATION.0301 428176 Information not available 04/21/2022 Where Do You Live? SingleLevelHouse MIGRATION.0301 705140 Information not available 04/21/2022 Do You Have A Medical Power Of Rn Angiography? No MIGRATION.0301 670310 Information not available 04/21/2022 What Was The Date Of Your Most Recent Tobacco Screening? 10/18/2022 [email or web address] Information not available 10/18/2022 Do You Have Any Pets? No MIGRATION.0301 075241 Information not available 04/21/2022 What Is Your Relationship Status? Single MIGRATION.0301 948776 Information not available 04/21/2022 Do You Use Your Seat Belt Or Car Seat Routinely? No MIGRATION.0301 811214 Information not available 04/21/2022 Do You Have Smoke And Carbon Monoxide Detectors In Your Home? Yes MIGRATION.0301 [id number] Information not available 04/21/2022 Are You Passively Exposed To Smoke? No MIGRATION.0301 250481 Information not available 04/21/2022 Are There Any Smokers In Your House? No MIGRATION.0301 693332 Information not available 04/21/2022 How Much Tobacco Do You Smoke? No MIGRATION.0301 809306 Information not available 04/21/2022 What Types Of Sporting Activities Do You Participate In? None MIGRATION.0301 068892 Information not available 04/21/2022 Do You Use Sunscreen Routinely? No MIGRATION.0301 [id number] Information not available 04/21/2022 Has Tobacco Cessation Counseling Been Provided? No MIGRATION.0301 638617 Information not available 04/21/2022 How Many Years Have You Smoked Tobacco? 25 MIGRATION.0301 674313 Information not available 04/21/2022 Have You Recently Traveled Abroad? No MIGRATION.0301 394785 Information not available 04/21/2022 Do You Have Any Dietary Restrictions? No MIGRATION.0301 917047 Information not available 04/21/2022 Sex: Male Functional Status Question Answer Note LastModified by Organizat ion Details LastModified Time Do you use any illicit or recreational drugs? No MIGRATION.115371 4115 Information not available 04/21/2022 Do you or have you ever used any other forms of tobacco or nicotine? No MIGRATION.803450 8211 Information not available 04/21/2022 What is your level of alcohol consumption? None MIGRATION.829956 3821 Information not available 04/21/2022 Do you or have you ever used smokeless tobacco? 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 Never used electronic cigarettes MIGRATION.750889 5874 Information not available 04/21/2022 What is your exercise level? None MIGRATION.926380 4204 Information not available 04/21/2022 Mental Status Question Answer Note LastModified by Organizat ion Details LastModified Time Do you feel stressed (tense, restless, nervous, or anxious, or unable to sleep at night)? [id number] MIGRATION.[id number] Information not available 04/21/2022 Family History Relationship Description Onset Age of this Age Resolved Age Notes LastModified by Organization Details LastModified Time Mother Essential hypertension MIGRATION.993 [id number] Not available 04/21/2022 04:44:26 Brother Diabetes mellitus MIGRATION.277 [id number] Not available 04/21/2022 04:44:26 Brother Family history of blood coagulation disorder MIGRATION.551 [id number] Not available 04/21/2022 04:44:26 Sister Cerebrovascu lar accident MIGRATION.341 [id number] Not available 04/21/2022 04:44:26 Medical History Condition Response NERVE DISEASE N BLINDNESS N RHEUMATIC FEVER N KIDNEY STONES N BLADDER PROBLEMS N MRSA N OTHER # 1 N POLIO N LUNG DISEASE/DISORDER N RADIATION / CHEMOTHERAPY N COPD N BLOOD DISEASES N EAR OR HEARING PROBLEMS N MUMPS N BOWEL PROBLEMS N DEPRESSION (INCLUDING POST ) N STROKE/TIA N ULCERS N BENIGN PROSTATIC HYPERPLASIA N MEASLES N MYOCARDIAL INFARCTION N OBESITY N GERD/NAUSEA N ANEURYSM N URINARY/BLADDER/KIDNEY PROBLEMS N CORONARY ARTERY DISEASE (CAD) Y ADDICTION CONCERNS N Impotence N ENDOMETRIOSIS N USE OF BLOOD THINNERS N SKIN PROBLEMS N GASTROINTESTINAL DISORDER N PERIPHERAL VASCULAR DISEASE N MUSCLE,JOINT OR BONE PROBLEMS N GASTROINTESTINAL BLEEDING N BLOOD CLOTS N ASTHMA N CATARACTS N ERECTILE DYSFUNCTION N VARICOSITIES N GI PROBLEMS N Low Testosterone N INFERTILITY N AIDS/HIV N CHEMOTHERAPY / RADIATION N LIVER DISEASE N MALE HYPOGONADISM N HYPERTENSION Y Deficiency N ANXIETY DISORDER N BLOOD TRANSFUSION N ANEMIA/BLOOD DISORDER N CHRONIC EAR INFECTIONS N BRONCHITIS N TUBERCULOSIS N GLAUCOMA N FOOT PROBLEM N DIVERTICULITIS N SLEEP APNEA N CHICKENPOX N INFECTIOUS DISEASE N PROSTATE N HEART ARRHYTHMIA N INSOMNIA N HIGH CHOLESTEROL / HYPERLIPIDEMIA Y EYE PROBLEMS N EDEMA N CHRONIC PAIN SYNDROME N CONSTIPATION N CAROTID BLOCKAGE N BACK / NECK PROBLEMS N HAVE YOU BEEN HOSPITALIZED OR SEEN IN [facility] IN THE PAST YEAR ? N ATHEROSCLEROSIS N BREAST PROBLEMS N DIALYSIS N ECZEMA N OSTEOPOROSIS N ARTHRITIS N APPENDICITIS N DIABETES, TYPE Y BAD TEETH N ENT N HEARTBURN / REFLUX N AFIB N AUTISM SPECTRUM DISORDER (ASD) N HEPATITIS / LIVER DISEASE N GOUT N SLEEP DISORDER N ALZHEIMER'S DISEASE N Brain Problems N DEMENTIA N HERPES N SEIZURES/EPILEPSY N HEADACHES/MIGRAINES N VASCULAR DISEASE N PACEMAKER N Blood Disorder N DIZZINESS N HEART DISEASE/HEART PROBLEMS N KIDNEY DISEASE N MULTIPLE SCLEROSIS N CANCER: SPECIFY N CARDIAC ARRHYTHMIA N ATRIAL FIBRILLATION N Gall Stones N PULMONARY EMBOLISM N AUTOIMMUNE DISEASE N Immunizations Vaccine Type Date Status Note Provider Nam e and Address Organization Details Recorded Time COVID-19, mRNA, LNP-S, PF, 100 mcg/0.5mL dose or 50 mcg/0.25mL dose 05/03/2020 completed Not Available [facility] 3 05:07:38 COVID-19, mRNA, LNP-S, PF, 100 mcg/0.5mL dose or 50 mcg/0.25mL dose 04/05/2020 completed Not Available [facility] 3 05:07:38 Past Encounters Encounter ID Performer Location Encounter Start Date Encounter Closed Date Diagnosis/Indication Diagnosis SNOMED-CT Code Diagnosis ICD10 Code Diagnosis Note [id number] Marino Mclaughlin MD S_G Internal Med [facility] [address] [address] 06/11/2020 00:00:00 06/11/2020 17:59:33 [id number] Marino Mclaughlin MD S_G Internal Med [facility] [address] [address] 10/08/2020 00:00:00 10/08/2020 21:23:18 [id number] Marino Mclaughlin MD S[facility] Internal Med [facility] [address] [facility] [address] 01/28/2021 00:00:00 02/08/2021 11:42:11 [id number] Marino Mclaughlin MD [facility] Med [facility] [address] [facility] [place] [address] 05/05/2021 00:00:00 05/05/2021 21:17:43 [id number] Marino Mclaughlin MD S_GMG Internal Med [facility] [address] [address] 06/10/2021 00:00:00 06/10/2021 21:38:40 [id number] Marino Mclaughlin MD [facility] Internal Med [facility] [address] [address] 10/07/2021 00:00:00 10/07/2021 22:23:53 [id number] Marino Mclaughlin MD [facility] Internal Med [facility] [address] [address] 02/03/2022 00:00:00 02/07/2022 13:37:31 [id number] Marino Mclaughlin MD [facility] Internal Med [facility] [address] [address] 05/26/2022 14:37:01 05/26/2022 16:49:58 Benign essential hypertension 3853618 I10 Type 2 lillian betes mellitus without complication 291261731 E11.9 Coronary arteriosclerosis 48658701 I25.10 [id number] Marino Mclaughlin MD [facility] Internal Med [facility] [address] [address] 10/18/2022 14:31:13 10/18/2022 16:27:07 Benign essential hypertension 0195559 I10 Type 2 lillian betes mellitus without complication 615212189 E11.9 Screening for malignant neoplasm of prostate 312725251 Z12.5 Health Concerns Section Related Observation LastModified by Organization Detai ls LastModified Time None Recorded Concern Status LastModified by Organization Details LastModified Time None Recorded Advance Directives Directive N: Payers Encounter Date Sequence Insurance Name Policy Number Policy Michaud Covered Member ID Michaud Member ID Guarantor Name 05/26/2022 1 [place] [employer] [id number] Donaldo Mosher [id number] Donaldo Mosher 10/18/2022 1 [place] [employer] [id number] Donaldo Mosher [id number] Donaldo Mosher Notes Date Note Type Note Provider Name and Address Organization Details Recorded Time 3 text/html diabetes blood sugars not optimized no polyphagia no polydipsiaCAD no chest pain no shortness of breathshypertension no headache no dizzinessArthritic complaints of handsVenous insufficiency of the legs no new complaintsObesity could do better losing weight Marino Mclaughlin MD [address], [place], [address], [facility] [employer] [facility] 05/29/2022 14:16:20 3 text/html diabetes blood sugars not optimized no polyphagia no polydipsiaCAD no chest pain no shortness of breathshypertension no headache no dizzinessArthritic complaints of handsVenous insufficiency of the legs no new complaintsObesity could do better losing weight Marino Mclaughlin MD [address], [place], [address], [employer] 10/18/2022 22:17:11
--- NOTE | 2024-07-02 13:45 | P.PNAN_ITS ---
Anes - Initial Pre Proc Eval Procedure: Operation Date: 07/02/24 14:30 Proposed Procedures p Screening Colonoscopy - Kenji Calvo MD Date/Time: 07/02/24 13:45 Surgeon: Kenji Calvo MD Pre Op Diagnosis: Screening Patient Data Age: 63 Gender: M Height: 1.93 m Weight: 152 kg Allergies Allergy/AdvReac Type Severity Reaction Status Date / Time No Known Allergies Allergy Verified 07/02/24 13:44 Home Medications ?Medication ?Instructions ?Recorded ?Confirmed ?Type apixaban 5 mg tablet (Eliquis) 5 mg PO Q12H 05/29/24 05/29/24 History atorvastatin 80 mg tablet 80 mg PO QPM 05/29/24 05/29/24 History clopidogrel 75 mg tablet 75 mg PO DAILY 05/29/24 05/29/24 History empagliflozin 10 mg tablet 10 mg PO DAILY 05/29/24 05/29/24 History (Jardiance) hydrochlorothiazide 25 mg tablet 25 mg PO DAILY 05/29/24 05/29/24 History insulin aspart U-100 100 unit/mL 40 unit subcut BID 05/29/24 05/29/24 History (3 mL) subcutaneous pen (Novolog FlexPen U-100 Insulin aspart) insulin glargine U-300 conc 300 40 unit subcut Q24H 05/29/24 05/29/24 History unit/mL (1.5 mL) subcutaneous pen (Toujeo SoloStar U-300 Insulin) lisinopril 40 mg tablet 40 mg PO DAILY 05/29/24 05/29/24 History metformin 1,000 mg tablet 1,000 mg PO BID 05/29/24 05/29/24 History metoprolol succinate 25 mg 25 mg PO DAILY 05/29/24 05/29/24 History tablet,extended release 24 hr semaglutide 2 mg/dose (8 mg/3 mL) 2 mg subcut WEEKLY 05/29/24 05/29/24 History subcutaneous pen injector (Ozempic) Patient hx anesthesia problems: none Family hx anesthesia problems: none Results Review: All pre-operative results and documents have been reviewed as part of the pre- operative evaluation. [facility] Past Medical History Medical History (Updated 07/02/24 @ 13:47 by David Valdez MD) CAD (coronary artery disease) HTN (hypertension) Morbid obesity Diabetes Surgical History Surgical History (Updated 07/02/24 @ 13:47 by David Valdez MD) History of coronary artery stent placement Social History Social History Years smoked: 40 Smoking status: Former smoker Tobacco type: cigarettes Substance use type: does not use Living arrangements: alone Anes - Eval Final PreProcedure Day of Procedure 07/02/24 13:45 Patient weight: morbidly obese Heart: regular rate and rhythm Lungs: clear to auscultation Airway: Mallampati scale class II Neurological: alert and oriented Last oral intake: >/= 8 hours ASA classification: III Emergent: no Anesthetic plan: proceed Anesthesia type and monitoring: general GIVS and standard monitoring Results Review: All pre-operative results and documents have been reviewed as part of the pre- operative evaluation. Informed Consent: The patient's anesthetic plan and its attendant risks and benefits were discussed with the patient/family/POA. Questions were solicited and answers provided to the satisfaction of the patient/family/POA.
[2024-07-02 13:46] VITALS: BP 134/73; PULSE 78; RESP 20; TEMP 36.1; O2SAT 100
[2024-07-02] MEDS: LACTATED RINGERS 1,000 ML 150 ML IV CONT (13:58)
[2024-07-02 14:03] LABS: Glucose Point of Care 122 mg/dl (65-105)
--- NOTE | 2024-07-02 14:14 | P.HP_ITS ---
H&P: HPI History of Present Illness Date/Time: 07/02/24 14:14 Chief Complaint: Screening colonoscopy Narrative: This is the patient's 2nd colonoscopy. There are no GI symptoms and there is no family history of colorectal cancer. Review of Systems Review of Systems: All systems reviewed & are unremarkable except as noted in HPI and below PMFSH Past Medical History Medical History (Updated 07/02/24 @ 14:15 by Kenji Calvo MD) CAD (coronary artery disease) HTN (hypertension) Morbid obesity Diabetes Surgical History Surgical History (Updated 07/02/24 @ 13:47 by David Valdez MD) History of coronary artery stent placement Social History Social History Years smoked: 40 Smoking status: Former smoker Tobacco type: cigarettes Substance use type: does not use Living arrangements: alone Meds Home Medications and Allergies Home Medications ?Medication ?Instructions ?Recorded ?Confirmed ?Type apixaban 5 mg tablet (Eliquis) 5 mg PO Q12H 05/29/24 07/02/24 History atorvastatin 80 mg tablet 80 mg PO QPM 05/29/24 07/02/24 History clopidogrel 75 mg tablet 75 mg PO DAILY 05/29/24 07/02/24 History empagliflozin 10 mg tablet 10 mg PO DAILY 05/29/24 07/02/24 History (Jardiance) hydrochlorothiazide 25 mg tablet 25 mg PO DAILY 05/29/24 07/02/24 History insulin aspart U-100 100 unit/mL 40 unit subcut BID 05/29/24 07/02/24 History (3 mL) subcutaneous pen (Novolog FlexPen U-100 Insulin aspart) insulin glargine U-300 conc 300 40 unit subcut Q24H 05/29/24 07/02/24 History unit/mL (1.5 mL) subcutaneous pen (Toujeo SoloStar U-300 Insulin) lisinopril 40 mg tablet 40 mg PO DAILY 05/29/24 07/02/24 History metformin 1,000 mg tablet 1,000 mg PO BID 05/29/24 07/02/24 History metoprolol succinate 25 mg 25 mg PO DAILY 05/29/24 07/02/24 History tablet,extended release 24 hr semaglutide 2 mg/dose (8 mg/3 mL) 2 mg subcut WEEKLY 05/29/24 07/02/24 History subcutaneous pen injector (Ozempic) Allergies Allergy/AdvReac Type Severity Reaction Status Date / Time No Known Allergies Allergy Verified 07/02/24 13:44 Vital Signs Vital Signs - 24 hr 07/02/24 13:46 Temperature 97 F L Pulse Rate 78 Respiratory Rate 20 Blood Pressure 134/73 Pulse Oximetry 100 Oxygen Delivery Room Air Exam Const: General: cooperative and healthy appearing Resp: Effort & Inspection: normal respiratory effort and able to speak in complete sentences Auscultation: clear to auscultation bilaterally Cardio: Rate: regular rate Rhythm: regular rhythm GI: Inspection: normal to inspection GI Palp: No No hepatosplenomegaly present Auscultation: normal bowel sounds Rectal Exam: deferred Skin: General skin exam: normal color Psych: Appearance: grossly normal Mental Status: mental status grossly no rmal Assessment and Plan Assessment and plan (1) Encounter for screening colonoscopy: Code(s): Z12.11 - Encounter for screening for malignant neoplasm of colon Status: Acute Assessment and Plan: The patient is deemed a good candidate for the procedure. Consent signed. Will proceed.
[2024-07-02 14:42] VITALS: BP 84/53; PULSE 72; RESP 17; O2SAT 95
[2024-07-02 14:52] VITALS: BP 88/56; PULSE 73; RESP 24; O2SAT 98
[2024-07-02 14:57] LABS: Glucose Point of Care 111 mg/dl (65-105)
[2024-07-02 15:02] VITALS: BP 113/69; PULSE 72; RESP 20; O2SAT 98
== END 2024-07-02 15:20 | disposition home or self-care (01) ==
PROVIDERS: PCP Internal Medicine; Referring Provider Internal Medicine; Visit Provider Internal Medicine Gastroenterology
PROC: 0DJD8ZZ Inspection of Lower Intestinal Tract, Via Natural or Artificial Opening Endoscopic (ICD-10-PCS; CPT 45378; principal; 2024-07-02 14:30)
DX: Z12.11 Encounter for screening for malignant neoplasm of colon (principal); K63.5 Polyp of colon; E11.9 Type 2 diabetes mellitus without complications; Z87.891 Personal history of nicotine dependence; E66.01 Morbid (severe) obesity due to excess calories; Z68.39 Body mass index [BMI] 39.0-39.9, adult
CPT/HCPCS: 45385; 82948; 88305; J2003; J2704; J7120